=== PATIENT | female | born 1965 | race Caucasian/White ===

== ENCOUNTER 2019-11-08 10:52 | Outpatient (CLI) | payer OTHER, SELFPAY ==
--- NOTE | ~2019-11-08 | XR_ITS ---
XR hand RT min 3V, XR hand LT min 3V 11/08/2019 11:27 (accession [id number]), 11/08/2019 11:28 (accession [id number]) Indication: Osteoarthritis of the first carpometacarpal joint Procedure: 3 views of each hand Comparison: No prior studies for comparison. Findings: There is osteoarthritis of the first carpometacarpal and MCP joints. No acute fracture or t raumatic malalignment. Normal mineralization. No focal soft tissue abnormality. No radiopaque foreign bodies. There is mild degenerative change of the triscaphe joints. Impression: 1: Mild bilateral polyarticular osteoarthritis. Reviewed, dictated and finalized at location A. Impression: 1: Mild bilateral polyarticular osteoarthritis. Impression: 1: Mild bilateral polyarticular osteoarthritis.
== END 2019-11-08 10:53 | disposition home or self-care (01) ==
LOC: ANHIMG 10:59
PROVIDERS: PCP Nurse Practitioner Psychiatric/Mental Health; Visit Provider Surgery Plastic and Reconstructive Surgery
DX: M18.0 Bilateral primary osteoarthritis of first carpometacarpal joints (principal)
CPT/HCPCS: 73130

== ENCOUNTER 2025-02-04 09:31 | Emergency (ER) | payer OTHER, SELFPAY ==
--- NOTE | ~2025-02-04 | XR_ITS ---
EXAMINATION: XR chest 2V 02/04/2025 10:50 INDICATION: Shortness of breath PROCEDURE: 2 view chest COMPARISON: No prior studies for comparison. FINDINGS: The lungs are clear. The cardiomediastinal silhouette is within normal limits. There are no pleural effusions. There is no pneumothorax suspected. IMPRESSION: 1: NO ACUTE CARDIOPULMONARY DISEASE. Reviewed, dictated and finalized at location B.
[2025-02-04 09:48] VITALS: BP 159/82; PULSE 83; PULSE 86; RESP 13; RESP 14; TEMP 36.3; O2SAT 96; O2SAT 97
--- OUTSIDE RECORDS SUMMARY | 2025-02-04 09:51 | XMS_ITS | Encounter Summary ---
Author Organization [facility] Address [facility] access [facility] [place] [address] Care Team Providers Care Warehouse Clerk Name Role Phone Angela Olguin NP Primary Care Provider [phone] Gloria Castro CONFERENCE CONCIERGE- Primary Care Provider + Freddie Zepeda MD Primary Care Provider [phone] Encounter Details Date Type Department Care Team (Late st Contact Info) Description 05/18/2023 Majitek Message Enc [facility] Medical Group Family & Internal Medicine [facility] [address] [place] [address] [place] [address] [place] [address] Influenza A Social History Tobacco Use Types Packs/Day Years Used Date Smoking Tobacco: Former Cigarettes 0.3 5 0 10/15/1987 - 10/14/1992 Smokeless Tobacco: Never Comments:former smoker Alcohol Use Standard Drinks/Week Comments Not Currently 0 (1 standard drink = 0.6 oz pur e alcohol) AUDIT-C Answer Date Recorded Frequency of Alcohol Consumption Monthly or less 08/02/2018 Average Number of Drinks Not on file 019 Frequency of Binge Drinking Not on file 07/10 PHQ-2 Answer Date Recorded Patient Health Questionnaire-2 Score 0 12/01/2022 Education Answer Date Recorded What is the highest level of school you have completed or the highest degree you have received? High school graduate 08/02/2018 Comments No Sex and Gender Information Value Date Recorded Sex Assigned at Female 08/03/2018 9:44 AM ORDER TAKER Legal Sex Female 7:04 PM CDT Gender Identity Female 08/03/2018 9:44 AM ORDER TAKER Sexual Orientation Straight 08/02/2018 9: 02 AM ORDER TAKER 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 Plan of Treatment Upcoming Encounters Date Type Department Care Team (Late st Contact Info) Description 03/16/2025 11:20 AM CDT Office Visit [facility] Medical Group Family & Internal Medicine [facility] [address] [place] [address] [place] [address] [facility] [address] [place] [address] documented as of this encounter Visit Diagnoses Not on filedocumented in this encounter Additional Health Concerns Infection Onset Date Last Indicated Resolved Time Influenza - Seasonal 05/16/2023 05/16/2023 023 12:32 AM ORDER TAKER Assessment Noted Time PHQ-9 Depression Total Score: 3 12/02/19 23 3:04 PM CDT documented as of this encounter Care Teams Warehouse Clerk Relationship Specialty Start Date End Date Angela Olguin ADDICTION TREATMENT COUNSELOR [address] [facility] Suite [facility] [place] [address] PCP - General Nurse Practitioner Family 04/23/2309/07 Gloria Castro, CONFERENCE CONCIERGE- [address] [facility], [address] [place] [address] PCP - General Nurse Practitioner Family 09/30/2401/06 [place] [address] [facility] [employer] [address] [place] [address] PCP - General INTERNAL MEDICINE 01/17/25 documented as of this encounter
--- OUTSIDE RECORDS SUMMARY | 2025-02-04 09:51 | XMS_ITS | Encounter Summary ---
Author Organization [facility] Address [address] [place] [address] Care Team Providers Care Rn Float Name Role Phone Es Lazcano COLOR MIXER Primary Care Provider Unav ailable Vidhya Baptiste [facility] Primary Care Provider + Angela Olguin COLOR MIXER Primary Care Provider [phone] Gloria Castro [facility] Primary Care Provider + Freddie Zepeda MD Primary Care Provider [phone] Encounter Details Date Type Department Care Team (Late st Contact Info) Description 04/07/2019 Fly Fishing Hunter Message Enc [facility] Family & Internal Medicine [facility] [address] [place] [address] Es Lazcano NP RE: Question Social History Tobacco Use Types Packs/Day Years Used Date Smoking Tobacco: Former Cigarettes Q uit: 1993 Smokeless Tobacco: Never Alcohol Use Standard Drinks/Week Comments Yes 0 (1 standard drink = 0.6 oz pur e alcohol) AUDIT-C Answer Date Recorded Frequency of Alcohol Consumption Monthly or less 08/02/2018 Average Number of Drinks Not on file 019 Frequency of Binge Drinking Not on file 07/10 Education Answer Date Recorded What is the highest level of school you have completed or the highest degree you have received? High school graduate 08/02/2018 Comments Unknown Sex and Gender Information Value Date Recorded Sex Assigned at Female 08/03/2018 9:44 AM DIRECTOR ALUMNI RELATIONS Legal Sex Female 7:04 PM CDT Gender Identity Female 08/03/2018 9:44 AM DIRECTOR ALUMNI RELATIONS Sexual Orientation Straight 08/02/2018 9: 02 AM DIRECTOR ALUMNI RELATIONS 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 Plan of Treatment Upcoming Encounters Date Type Department Care Team (Late st Contact Info) Description 03/16/2025 11:20 AM CDT Office Visit [facility] Family & Internal Medicine [facility] [address] [place] [address] [place] [address] [facility] [address] [place] [address] documented as of this encounter Visit Diagnoses Not on filedocumented in this encounter Additional Health Concerns Infection Onset Date Last Indicated Resolved Time COVID-19 Rule Out 09/11/2020 09/11/2020 09/11/2020 10:00 AM DIRECTOR ALUMNI RELATIONS COVID-19 Rule Out 05/16/2023 05/16/2023 05/16/2023 10:09 AM DIRECTOR ALUMNI RELATIONS Influenza - Seasonal 05/16/2023 05/16/2023 023 12:32 AM DIRECTOR ALUMNI RELATIONS documented as of this encounter Care Teams Rn Float Relationship Specialty Start Date End Date Es Lazcano NP PCP - General NURSE PRACTITIONER 08/02/18 07/25/21 Vidhya Baptiste, [facility]- PCP - General Nurse Practitioner Family 07/26/21 [place] [address] [facility] [address] [facility] [place] [address] PCP - General Nurse Practitioner Family 04/23/23 310/31 Gloria Castro, STORM SASH MAKER- [address] [facility] [address] [place] [address] PCP - General Nurse Practitioner Family 09/30/2401/06 [place] [address] [address] [place] [address] PCP - General INTERNAL MEDICINE 01/17/25 documented as of this encounter
--- OUTSIDE RECORDS SUMMARY | 2025-02-04 09:51 | XMS_ITS | Encounter Summary ---
Author Organization [facility] Address [facility] [place] [address] Care Team Providers Care Electronic Device Repairer Name Role Phone Vidhya Baptiste [facility] Primary Care Provider + Angela Olguin NP Primary Care Provider [phone] Gloria Castro [facility] Primary Care Provider + Freddie Zepeda MD Primary Care Provider [phone] Encounter Details Date Type Department Care Team (Late st Contact Info) Description 10/03/2021 MyCCampus Directt Message Enc [facility] Medical Group Family & Internal Medicine [facility] [address] [place] [address] Vidhya Baptiste [facility] [address] [place] [id number] [place] paper work Social History Tobacco Use Types Packs/Day Years Used Date Smoking Tobacco: Former Cigarettes 0.3 3 1 990 - 1992 Smokeless Tobacco: Never Comments:former smoker Alcohol Use Standard Drinks/Week Comments Yes 0 (1 standard drink = 0.6 oz pur e alcohol) AUDIT-C Answer Date Recorded Frequency of Alcohol Consumption Monthly or less 08/02/2018 Average Number of Drinks Not on file 019 Frequency of Binge Drinking Not on file 07/10 PHQ-2 Answer Date Recorded PHQ-2 Score - If the patient scores above 3, please move on to questions 3-9 2 07/30/2021 Education Answer Date Recorded What is the highest level of school you have completed or the highest degree you have received? High school graduate 08/02/2018 Comments No Sex and Gender Information Value Date Recorded Sex Assigned at Female 08/03/2018 9:44 AM AIRBORNE SENSOR SPECIALIST Legal Sex Female 7:04 PM CDT Gender Identity Female 08/03/2018 9:44 AM AIRBORNE SENSOR SPECIALIST Sexual Orientation Straight 08/02/2018 9: 02 AM AIRBORNE SENSOR SPECIALIST 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 Unable to assess 09/30/2021 11:44 AM CDT documented as of this encounter Plan of Treatment Upcoming Encounters Date Type Department Care Team (Late st Contact Info) Description 03/16/2025 11:20 AM CDT Office Visit [facility] Medical Group Family & Internal Medicine [address] [address] [place] [address] [place] [address] documented as of this encounter Visit Diagnoses Not on filedocumented in this encounter Additional Health Concerns Infection Onset Date Last Indicated Resolved Time COVID-19 Rule Out 05/16/2023 05/16/2023 05/16/2023 10:09 AM AIRBORNE SENSOR SPECIALIST Influenza - Seasonal 05/16/2023 05/16/2023 023 12:32 AM AIRBORNE SENSOR SPECIALIST Assessment Noted Time PHQ-9 Depression Total Score: 9 07/30/19 22 12:32 PM AIRBORNE SENSOR SPECIALIST documented as of this encounter Care Teams Electronic Device Repairer Relationship Specialty Start Date End Date Vidhya Baptiste FNP-BC PCP - General Nurse Practitioner Family 07/26/21 [place] [address] [facility] [address] [place] [address] PCP - General Nurse Practitioner Family 04/23/2309/07 Gloria Castro, [facility] [address] [address], [address] [place] [address] PCP - General Nurse Practitioner Family 09/30/2401/06 [place] [address] [address] [place] [address] PCP - General INTERNAL MEDICINE 01/17/25 documented as of this encounter
--- OUTSIDE RECORDS SUMMARY | 2025-02-04 09:51 | XMS_ITS | Encounter Summary ---
Author Organization [facility] Address [facility] [place] [address] Care Team Providers Care Private Sector Executive Name Role Phone Vidhya Baptiste [facility] Primary Care Provider + Angela Olguin NP Primary Care Provider [phone] Gloria Castro [facility] Primary Care Provider + Freddie Zepeda MD Primary Care Provider [phone] Encounter Details Date Type Department Care Team (Late st Contact Info) Description 09/29/2021 MyCRealtime Gamest Message Enc [facility] Medical Group Family & Internal Medicine [facility] [address] [place] [address] Vidhya Baptiste [facility] [address] [place] [phone] My appointment Social History Tobacco Use Types Packs/Day Years Used Date Smoking Tobacco: Former Cigarettes 0.3 3 1 990 - 1993 Smokeless Tobacco: Never Comments:former smoker Alcohol Use [...] Sex Assigned at Female 08/03/2018 9:44 AM TOE POUNDER Legal Sex Female 7:04 PM CDT Gender Identity Female 08/03/2018 9:44 AM TOE POUNDER Sexual Orientation Straight 08/02/2018 9: 02 AM TOE POUNDER 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 Unable to assess 09/30/2021 11:44 AM CDT documented as of this encounter Progress Notes * Opal Richardson RN - 09/30/2021 8:50 AM CDT Spoke with patient, VV is scheduled. * TRE Head - 09/30/2021 8:38 AM CDT VV please documented in this encounter Plan of Treatment Upcoming Encounters Date Type Department Care Team (Late st Contact Info) Description 03/16/2025 11:20 AM CDT Office Visit [facility] Medical Group Family & Internal Medicine - [place] [address] [place] [address] [place]eda [place] [id number] [place] [address] [place] [address] documented as of this encounter Visit Diagnoses Not on filedocumented in this encounter Additional Health Concerns Infection Onset Date Last Indicated Resolved Time COVID-19 Rule Out 05/16/2023 05/16/2023 05/16/2023 10:09 AM TOE POUNDER Influenza - Seasonal 05/16/2023 05/16/2023 023 12:32 AM TOE POUNDER Assessment Noted Time PHQ-9 Depression Total Score: 9 07/30/19 22 12:32 PM TOE POUNDER documented as of this encounter Care Teams Private Sector Executive Relationship Specialty Start Date End Date Vidhya Baptiste, [facility] PCP - General Nurse Practitioner Family 07/26/21 Angela Olguin, CARGO SERVICE SUPERVISOR [address] [place] [address] PCP - General Nurse Practitioner Family 04/23/2309/07 Gloria Castro, [facility] [address] [address], [address] [place] [address] PCP - General Nurse Practitioner Family 09/30/2401/06 [place] [address] [email or web address] [address] [place] [address] PCP - General INTERNAL MEDICINE 01/17/25 documented as of this encounter
--- OUTSIDE RECORDS SUMMARY | 2025-02-04 09:51 | XMS_ITS | Encounter Summary ---
Author Organization [facility] Address [address] [place] [address] Care Team Providers Care Nnp Name Role Phone Vidhya Baptiste [facility] Primary Care Provider + Angela Olguin BLOCKER METAL BASE Primary Care Provider Gloria Castro [facility] Primary Care Provider + Freddie Zepeda MD Primary Care Provider [phone] Encounter Details Date Type Department Care Team (Late st Contact Info) Description 06/19/2022 Better Placet Message Enc [facility] Medical Group Family & Internal Medicine [facility] [address] [place] [address] Leanne Calvillo, ISABELLA [address] [address] [place] Social History Tobacco Use Types Packs/Day Years [...] Sex Assigned at Female 08/03/2018 9:44 AM MACHINE STUFFER AUTOMATIC Legal Sex Female 7:04 PM CDT Gender Identity Female 08/03/2018 9:44 AM MACHINE STUFFER AUTOMATIC Sexual Orientation Straight 08/02/2018 9: 02 AM MACHINE STUFFER AUTOMATIC 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 No / Unsure 06/14/2022 1:50 PM MACHINE STUFFER AUTOMATIC documented as of this encounter Plan of Treatment Upcoming Encounters Date Type Department Care Team (Late st Contact Info) Description 03/16/2025 11:20 AM CDT Office Visit [facility] Medical Group Family & Internal Medicine [facility] [address] [place], [place] [address] [place] [address] [place] [address] documented as of this encounter Visit Diagnoses Not on filedocumented in this encounter Additional Health Concerns Infection Onset Date Last Indicated Resolved Time COVID-19 Rule Out 05/16/2023 05/16/2023 05/16/2023 10:09 AM MACHINE STUFFER AUTOMATIC Influenza - Seasonal 05/16/2023 05/16/2023 023 12:32 AM MACHINE STUFFER AUTOMATIC Assessment Noted Time PHQ-9 Depression Total Score: 9 07/30/19 22 12:32 PM MACHINE STUFFER AUTOMATIC documented as of this encounter Care Teams Nnp Relationship Specialty Start Date End Date Vidhya Baptiste FNP-BC PCP - General Nurse Practitioner Family 07/26/21 Angela Olguin, BLOCKER METAL BASE [address] [place] [address] [address] [place] [address] PCP - General Nurse Practitioner Family 04/23/2309/07 Gloria Castro, [facility]- [address] [address], [address] [place] [address] PCP - General Nurse Practitioner Family 09/30/2401/06 [place] [address] [address] [place] [address] PCP - General INTERNAL MEDICINE 01/17/25 documented as of this encounter
--- OUTSIDE RECORDS SUMMARY | 2025-02-04 09:51 | XMS_ITS | Encounter Summary ---
Author Organization [facility] Address [facility] [place] [address] Care Team Providers Care [place] Nurse Name Role Phone Freddie Zepeda MD Primary Care Provider [phone] Reason for Referral * Imaging (Emergency) - New Request Specialty Diagnoses / Procedures Referred By Toni lee Referred To Contact RADIOLOGY Procedures CTA CHEST PE PROTOCOL Clarisa Lang MD [address] [place] [address] Phone: tel: fax: Referral ID Status Reason Start Date Expiration Date V isits Requested Visits Authorized [id number] New Request 02/03/2025 02/03/2026 1 1 Reason for Visit * Reason Comments Shortness Of Breath Chest Pain Edema Encounter Details Date Type Department Care Team (Late st Contact Info) Description 02/03/2025 10:25 AM CDT - 02/03/2025 1:10 PM CDT Emergency [facility] Emergency Room [address] [place] [address] Clarisa Lang MD [address] [place] [address] Shortness Of Breath ; Chest Pain; Edema Discharge Disposition: Home or Self Care (Routine Discharge) Social History Tobacco Use Types Packs/Day Years [...] Answer Date Recorded Patient Health Questionnaire-2 Score 1 12/04/2024 Education Answer Date Recorded What is the highest level of school you have completed or the highest degree you have received? High school graduate 08/02/2018 Comments No Sex and Gender Information Value Date Recorded Sex Assigned at Female 08/03/2018 9:44 AM RN CLINICAL QUALITY Legal Sex Female 7:04 PM CDT Gender Identity Female 08/03/2018 9:44 AM RN CLINICAL QUALITY Sexual Orientation Straight 08/02/2018 9: 02 AM RN CLINICAL QUALITY 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 Last Filed Vital Signs Vital Sign Reading Time Taken Comments Blood Pressure 158/87 02/03/2025 12:30 PM CDT Pulse 75 02/03/2025 12:37 PM CDT Temperature 36.1 C (96.9 F) 02/03/2025 1:01 PM CDT Respiratory Rate 13 02/03/2025 12:37 PM CDT Oxygen Saturation 97% 02/03/2025 12:37 PM CDT Inhaled Oxygen Concentration - - Weight 132.9 kg (293 lb) 02/03/2025 10:30 AM CDT Height 167.6 cm (5' 6) 02/03/2025 10:30 AM CDT Body Mass Index 47.29 02/03/2025 10:30 AM CDT documented in this encounter Functional Status * Calculated C-SSRS Risk Score (Lifetime/Recent) Answer Date of Assessment Author Status No Risk Indicated 02/03/2025 10:38 AM CDT Deonna Oliveros RN Active * [place] Suicide Severity Rating Scale (Screener/Recent Self-Report) Question Answer Date of Assessment Author Status 1. Wish to be (Past 1 Month) No 02/03/2025 10:38 AM CDT Jose Juan Oliveros RN A ctive 2. Non-Specific Active Suicidal Thoughts (Past 1 Month) No 02/03/2025 10:38 AM CDT Jose Juan Oliveros RN A ctive 6. Suicidal Behavior (Lifetime) No 02/03/2025 10:38 AM CDT Jose Juan Oliveros RN A ctive documented as of this encounter Discharge Instructions * Discharge Instructions* Clarisa Lang MD - 02/03/2025 12:40 PM CDT Follow up with your PCP. Avoid sodas or processed foods for the next several weeks. Avoid Zyprexa. Return if worsening of your symptoms * Attachments The following attachments cannot be sent through Care Everywhere. * Obesity Discharge Instructions, Adult ([place] Citizen) * Shortness of Breath (Dyspnea) Discharge Instructions ([place] Citizen) documented in this encounter Medications at Time of Discharge albuterol sulfate HFA 108 (90 Base) MCG/ACT inhalerIndications:M ild intermittent asthma without complication (HHS/HCC) INHALE 2 PUFFS BY MOUTH EVERY 6 HOURS NEEDED FOR WHEEZING FOR SHORTNESS OF BREATH 18 g 01/05/2025 ALPRAZolam (XANAX) 0.25 MG tablet Take 1 tablet (0.25 mg total) by mouth 2 (two) times daily. 09/29/2024 ARIPiprazole (ABILIFY) 5 MG tablet Take 1 tablet (5 mg total) by mouth 2 (two) times a day. 05/16/2022 atenolol (TENORMIN) 50 MG tabletIndications:Pr imary hypertension Take 2 tablets by mouth once daily 180 tablet 02/02/2025 buPROPion SR (WELLBUTRIN SR) 100 MG 12 hr tablet Take 1 tablet (100 mg total) by mouth 2 (two) times daily. 09/17/2024 busPIRone (BUSPAR) 30 MG tabletIndications:GA D (generalized anxiety disorder),Moderate episode of recurrent major depressive disorder (CMS/HCC) Take 1 tablet (30 mg total) by mouth 2 (two) times a day. 180 tablet 02/09/2022 cyclobenzaprine (FLEXERIL) 5 MG tablet Take 1 tablet (5 mg total) by mouth 3 (three) times daily as needed for Muscle Spasms. diclofenac EC (VOLTAREN) 75 MG tabletIndications:Ac shantelle bilateral low back pain with bilateral sciatica Take 1 tablet by mouth twice daily 60 tablet 01/05/2025 empagliflozin (JARDIANCE) 25 MG tabletIndications:Ty pe 2 diabetes mellitus with hyperglycemia, without long-term current use of insulin (CMS/HCC HHS/HCC) Take 1 tablet (25 mg total) by mouth daily. 30 tablet 2 12/04/2024 Fenofibrate 134 MG CapIndications:Mixed hyperlipidemia Take 1 capsule by mouth daily. 90 capsule 3 01/14/2024 fish oil (OMEGA-3 FATTY ACID) 1000 MG Cap capsuleIndications:M ixed hyperlipidemia Take 1 capsule (1,000 mg total) by mouth daily. 60 capsule 2 07/05/2022 gabapentin (NEURONTIN) 100 MG capsuleIndications:C hronic bilateral low back pain with bilateral sciatica Take 1 capsule (100 mg total) by mouth 3 (three) times daily. 90 capsule 2 12/04/2024 hydroCHLOROthiazide (HYDRODIURIL) 25 MG tabletIndications:Es sential hypertension Take 1 tablet (25 mg total) by mouth daily. 90 tablet 3 01/14/2024 mirtazapine (REMERON) 30 MG tablet Take 1 tablet (30 mg total) by mouth nightly at bedtime. 09/19/2024 montelukast (SINGULAIR) 10 MG tabletIndications:Mi ld intermittent asthma without complication (HHS/HCC) Take 1 tablet (10 mg total) by mouth nightly at bedtime. at bedtime 90 tablet 3 01/14/2024 nystatin (MYCOSTATIN) powderIndications:Ca ndidal intertrigo Apply topically 3 (three) times daily. 60 g 3 12/12/2024 OLANZapine (ZYPREXA) 5 MG tablet Take 1 tablet (5 mg total) by mouth nightly at bedtime. 12/25/2024 rosuvastatin (CRESTOR) 10 MG tabletIndications:Mi xed hyperlipidemia Take 1 tablet (10 mg total) by mouth nightly at bedtime. 30 tablet 10/28/2024 triamcinolone (KENALOG) 0.1 % creamIndications:Pso riasis Apply topically 2 (two) times daily. 80 g 1 10/24/2024 valACYclovir (VALTREX) 500 MG tabletIndications:He rpes simplex Take 1 tablet (500 mg total) by mouth daily. 90 tablet 3 01/14/2024 venlafaxine XR (EFFEXOR-XR) 150 MG 24 hr capsule Take 1 capsule (150 mg total) by mouth daily. 06/17/2024 vitamin D3 10 mcg tabletIndications:Mi xed hyperlipidemia Take 1 tablet (10 mcg total) by mouth daily. May take 400-800 u daily 10/28/2024 documented as of this encounter ED Notes * Jose Juan Oliveros RN - 02/03/2025 10:36 AM CDT Patient ambulatory to ER from the walk in clinic for overall body aches and swelling and SOB. The swelling she noticed a month ago after trialing olanzipine, she has since stopped taking it but the last couple of days she states the SOB and generalized pain has been much worse. Patient states the only significant PMH is HTN. * Clarisa Lang MD - 02/03/2025 10:25 AM CDT Chief Complaint Chief Complaint Patient presents with Shortness Of Breath Chest Pain Edema History of Present Illness 59-year-old female who presents for shortness of breath. Past medical history is HTN, asthma, HLD, DMT2, anxiety and depression presents due to chest tightness and pressure, shortness of breath and edema for the last several weeks. Patient states that she was placed on olanzapine for her anxiety and then stopped it several weeks after she began getting swelling on her lower extremities. Has not taking it for several weeks but continues to have lower extremity swelling, now complains of chest tightness and shortness of breath at rest. She states that the chest tightness is not a pain, it substernal and nonradiating. States that she is supposed be taking atenolol and hydrochlorothiazide but has not been taking the hydrochlorothiazide however she denies any history of heart failure, no history of DVTs. States that her legs are swollen but not painful. Patient does have a history of pickingat her legs and does have multiple scars and says that they occasionally get infected but denies any areas of pain at this time. She denies any fevers, has a mild cough that is intermittent but denies any sick contacts. She states she does have a history of asthma but has not done inhalers, states that she does not tolerate the nebulizers well. Medical History ALLERGIES: Review of patient's allergies indicates: Allergen Reactions Albuterol Nausea Only Albuterol in nebulizer causes nausea, albuterol in inhaler ok Ciprofloxacin Hives Cleocin [Clindamycin Hcl] Hives Ipratropium Nausea Only Keflex [Cephalexin] Hives Penicillins Hives MEDICATIONS: Prior to Admission medications Medication Sig Start Date End Date Taking? Authorizing Provider albuterol sulfate HFA 108 (90 Base) MCG/ACT inhaler INHALE 2 PUFFS BY MOUTH EVERY 6 HOURS NEEDEDFOR WHEEZING FOR SHORTNESS OF BREATH 01/05/25 TOÑO Jo ALPRAZolam (XANAX) 0.25 MG tablet Take 1 tablet (0.25 mg total) by mouth 2 (two) times daily. 09/29/24 Default History Genericprovider ARIPiprazole (ABILIFY) 5 MG tablet Take 1 tablet (5 mg total) by mouth 2 (two) times a day. 05/16/22Default History Genericprovider atenolol (TENORMIN) 50 MG tablet Take 2 tablets by mouth once daily 02/02/25 Angela Olguin, DON buPROPion SR (WELLBUTRIN SR) 100 MG 12 hr tablet Take 1 tablet (100 mg total) by mouth 2 (two) times daily. 09/17/24 Default History Genericprovider busPIRone (BUSPAR) 30 MG tablet Take 1 tablet (30 mg total) by mouth 2 (two) times a day. 02/09/22 TRE Head cyclobenzaprine (FLEXERIL) 5 MG tablet Take 1 tablet (5 mg total) by mouth 3 (three) times daily asneeded for Muscle Spasms. Default History Genericprovider diclofenac EC (VOLTAREN) 75 MG tablet Take 1 tablet by mouth twice daily 01/05/25 TOÑO Jo empagliflozin (JARDIANCE) 25 MG tablet Take 1 tablet (25 mg total) by mouth daily. 12/04/24 TRE Xavier Fenofibrate 134 MG Cap Take 1 capsule by mouth daily. 01/14/24 Angela Olguin NP fish oil (OMEGA-3 FATTY ACID) 1000 MG Cap capsule Take 1 capsule (1,000 mg total) by mouth daily. 07/05/22 Emmy Price MD gabapentin (NEURONTIN) 100 MG capsule Take 1 capsule (100 mg total) by mouth 3 (three) times daily.12/04/24 TRE Xavier hydroCHLOROthiazide (HYDRODIURIL) 25 MG tablet Take 1 tablet (25 mg total) by mouth daily. 01/14/24 Angela Olguin NP mirtazapine (REMERON) 30 MG tablet Take 1 tablet (30 mg total) by mouth nightly at bedtime. 09/19/24Default History Genericprovider montelukast (SINGULAIR) 10 MG tablet Take 1 tablet (10 mg total) by mouth nightly at bedtime. at bedtime 01/14/24 Angela Olguin NP nystatin (MYCOSTATIN) powder Apply topically 3 (three) times daily. 12/12/24 TRE Xavier OLANZapine (ZYPREXA) 5 MG tablet Take 1 tablet (5 mg total) by mouth nightly at bedtime. Patient not taking: Reported on 02/03/2025 12/25/24 Default History Genericprovider rosuvastatin (CRESTOR) 10 MG tablet Take 1 tablet (10 mg total) by mouth nightly at bedtime. 10/28/24 TRE Xavier triamcinolone (KENALOG) 0.1 % cream Apply topically 2 (two) times daily. 10/24/24 TRE Xavier valACYclovir (VALTREX) 500 MG tablet Take 1 tablet (500 mg total) by mouth daily. 01/14/24 Angela Olguin NP venlafaxine XR (EFFEXOR-XR) 150 MG 24 hr capsule Take 1 capsule (150 mg total) by mouth daily. 06/17/24 Default History Genericprovider vitamin D3 10 mcg tablet Take 1 tablet (10 mcg total) by mouth daily. May take 400-800 u daily 10/28/24 Gloria Castro, [facility] PAST MEDICAL HISTORY: Past Medical History[1] PAST SURGICAL HISTORY: Past Surgical History[2] FAMILY HISTORY: Family History[3] SOCIAL HISTORY: Social History[4] Review of Systems Review of Systems Physical Exam Filed Vitals: 02/03/25 1130 02/03/25 1230 02/03/25 1237 02/03/25 1301 BP: (!) 142/89 (!) 158/87 Pulse: 77 76 75 Resp: 27 13 13 Temp: 96.9 ??F (36.1 ??C) TempSrc: Temporal SpO2: 95% 97% 97% Weight: Height: Physical Exam Diagnostic Studies / Procedures ELECTROCARDIOGRAMS: Results for orders placed or performed during the hospital encounter of 02/03/25 ECG 12 lead Narrative [facility] Test Date: 2025-02-03 Pat Name: LUTHER COATES Department: 85 Room: EXAM 101 Gender: Female 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: : 1965 Requested By: CLARISA LANG Order Number: [id number] Reading MD: Measurements Intervals [place] Rate: 75 P: -11 MI: 160 QRS: -10 QRSD: 86 T: 40 QT: 379 QTc: 426 Interpretive Statements SINUS RHYTHM Compared to ECG 09/11/2020 09:30:01 No significant changes LABORATORY STUDIES: Results for orders placed or performed during the hospital encounter of 02/03/25 CBC W/DIFF AUTOMATED Result Value Ref Range WBC 7.65 4.4 - 11.0 x10'3/uL RBC 5.01 4.50 - 5.10 x10'6/uL HGB 13.7 12.3 - 15.3 G/DL HCT 43.2 35.9 - 44.6 % MCV 86.2 80.0 - 96.0 FL MCH 27.3 25.3 - 30.9 PG MCHC 31.7 31.0 - 34.1 G/DL RDW 13.9 12.4 - 15.1 % PLT 258 151 - 353 x10'3/uL MPV 9.3 (L) 9.6 - 12.0 FL RBC MORPHOLOGY NORMAL PLT MORPH. NORMAL WBC MORPHOLOGY NORMAL LYMPHOCYTES % 25.6 15.8 - 45.0 % NEUTROPHILS % 61.1 42.1 - 71.9 % MONOCYTES % 7.8 5.7 - 12.5 % EOSINOPHILS 3.7 0.0 - 5.6 % BASOPHILS 0.9 0.0 - 1.3 % ABS. NEUTROPHILS 4.67 1.40 - 6.00 x10'3/uL IMMATURE GRANS % 0.9 (H) 0.0 - 0.5 % ABS. LYMPHOCYTES 1.96 0.80 - 4.70 x10'3/uL COMPREHENSIVE METABOLIC PANEL Result Value Ref Range GLUCOSE 144 (H) 70 - 99 MG/DL BUN 14 7 - 18 MG/DL CREATININE S/P/B 0.61 0.55 - 1.02 MG/DL SODIUM S/P/B 139 136 - 145 MMOL/L POTASSIUM S/P/B 4.3 3.5 - 5.1 MMOL/L CHLORIDE S/P/B 103 100 - 108 MMOL/L CO2 31.1 21 - 32 MMOL/L CALCIUM S/P/B 8.6 8.5 - 10.1 MG/DL BILIRUBIN TOTAL S/P/B 0.2 0.2 - 1.2 MG/DL TOTAL PROTEIN S/P/B 7.3 6.4 - 8.2 G/DL ALBUMIN S/P/B 3.4 3.4 - 5.0 G/DL AST 37 15 - 37 U/L ALT 40 14 - 55 U/L ALKALINE PHOSPHATASE S/P/B 163 (H) 50 - 136 U/L ANION GAP 4.9 (L) 5 - 15 MMOL/L BUN CREATININE RATIO 23.0 6 - 26 A/G RATIO 0.9 (L) 1.0 - 2.0 RATIO GFR ESTIMATE >90 >90 ML/MIN/1.73 M2 PROTIME/INR, VENOUS Result Value Ref Range PROTIME 11.4 9.1 - 12.4 SEC INR 1.0 LIPASE Result Value Ref Range LIPASE 17 16 - 77 UNITS/L TROPONIN, QUANT Result Value Ref Range TROPONIN I HIGH SENSITIVITY 5 0 - 50 ng/L MAGNESIUM Result Value Ref Range MAGNESIUM 2.0 1.8 - 2.4 MG/DL PRO-BRAIN NATRIURETIC PEPTIDE Result Value Ref Range PRO-B TYPE NATRIURETIC PEPTIDE 34 <125 PG/ML D-DIMER, QUANTITATIVE Result Value Ref Range D-DIMER 627 (H) 0 - 500 ng[FEU]/mL IMAGING STUDIES CTA CHEST PE PROTOCOL Final Result by User, [id number] (02/03 1226) [facility] [address] [place] [address] PROCEDURE: CTA CHEST PE PROTOCOL. HISTORY: Evaluate for pulmonary embolism. Shortness of breath. Chest pain. Elevated d-dimer. TECHNIQUE: Contrast enhanced helical CT pulmonary angiography was then performed. Routine transaxial and post-processed (sagittal and coronal MPR) reformations of the acquired data sets were obtained (Isovue-370, 80 mL). Standard 3-D (MIP) reformations of the acquired data sets were also obtained. A dose lowering technique was used for this procedure, which may include, but is not limited to, dose reduction technique, automated exposure control, the use of iterative reconstruction, and ALARA (As Low As Reasonably Achievable) / Image Gently techniques. COMPARISON: AP chest radiograph, 02/03/2025. PULMONARY CTA FINDINGS: This is a diagnostic quality helical CT pulmonary angiogram. There is no acute pulmonary embolism to the first subsegmental pulmonary artery level. OTHER FINDINGS: Support Devices: None. Heart/Pericardium/Great Vessels: Cardiac size is normal. Enlarged. Artery atherosclerosis cannot be accurately evaluated on this contrast-enhanced exam. There is no pericardial effusion. There is mild thoracic aortic and branch vessel atherosclerosis, portions calcific. The main pulmonary artery is normal in diameter. The mid ascending thoracic aorta measures up to 3.6 cm. Pleural Spaces: The pleural spaces are clear. Mediastinum/Julieta: There is no mediastinal or hilar lymph node enlargement. Neck Base/Chest Wall/Diaphragm/Upper Abdomen: There is no supraclavicular or axillary lymph node enlargement. Hepatomegaly with diffuse hepatic steatosis. Status post cholecystectomy. The visualized structures within the upper abdomen are otherwise within normal limits. Limited imaging through the upper abdomen is within normal limits. Multilevel degenerative change is present in the spine. Lungs/Central Airways: The trachea and central airways are clear normal in caliber. There is bilateral dependent atelectasis. No focal consolidation. No suspicious pulmonary nodules are identified. IMPRESSION: 1. There is no acute pulmonary embolism to the first subsegmental pulmonary artery level. 2. No acute abnormality is seen within the chest. 3. Hepatomegaly with diffuse hepatic steatosis. 4. Status post cholecystectomy. Ordered By: CLARISA LANG Interpreted By: Rose Marie Buenrostro MD, 02/03/2025 12:15 PM XR CHEST PORTABLE Final Result by User, [id number] (02/03 1109) [facility] [address] [place] [address] Examination: Chest Radiograph, 1 view Exam Date/Time: 02/03/2025 10:47 AM Reason For Exam: CP, SOB Comparison: 09/11/2020 Technique: Single AP view of the chest. Findings: Heart size is normal. Pulmonary vasculature is within normal limits. There is no large pleural effusion or pneumothorax. No focal infiltrate or consolidative change. Gaseous distention possibly of the stomach is suspected. This is incompletely visualized. ======== IMPRESSION: ======== 1. No acute cardiopulmonary abnormalities. 2. Gaseous distention of stomach partially visualized. Correlate clinically. Ordered By: CLARISA LANG Interpreted By: Dante Muhammad MD, 02/03/2025 11:04 AM ED Course / Medical Decision Making Medical Decision Making Amount and/or Complexity of Data Reviewed Labs: ordered. Radiology: ordered. ECG/medicine tests: ordered. This is a 59-year-old female with PMH as above presents secondary to shortness of breath. Associated with rapid weight gain for the past several weeks approximately 30 pounds after starting olanzapine. Olanzapine has been held this was started for anxiety. She had normal vital signs, satting 97% onroom air, she had no wheezing on exam, albuterol without any improvement. Her dimer was slightly elevated CTA was ordered which was unremarkable. Her cardiac markers were unremarkable. She did not appear to have pitting edema. Question whether or not this is hypoventilation syndrome secondary to weight gain. I advised patient to watch for food control and hopefully her weight should decrease now t hat she is no longer taking the olanzapine. To follow-up with her PCP but at this time no emergent cause was found causing shortness of breath and she has stable vital signs. EKG shows NSR at 75 bpm, normal axis, no signs of acute ischemia as interpreted by myself. Clinical Impression Shortness of breath (Primary) Medication side effect, initial encounter Rapid weight gain Disposition: Discharge [1] Past Medical History: Diagnosis Date Anemia Anxiety Arthritis Asthma (HHS/HCC) Depression Diabetes mellitus (CMS/HCC HHS/HCC) GERD (gastroesophageal reflux disease) Hypertension Tendinitis, de Quervain's 03/12/2018 [2] Past Surgical History: Procedure Laterality Date APPENDECTOMY APPENDECTOMY 1989 BREAST REDUCTION BILATERAL BREAST SURGERY 1993 SECTION CHOLECYSTECTOMY COLONOSCOPY N/A 06/20/2019 COLONOSCOPY WITH POLYPECTOMY performed by Amanuel Gonzales MD at [facility] OR EYE SURGERY two surgeries LASIK Bilateral 2000 [3] Family History Problem Relation Name Age of Onset Hypertension Mother Marilynn Emphysema Mother Marilynn Heart Mother Marilynn Heart Disease Mother Marilynn Miscarriages / Stillbirths Mother Marilynn Asthma Mother Marilynn Emphysema Father Vision loss Paternal Grandmother Ana Asthma Daughter Mehreen [4] Social History Tobacco Use Smoking status: Former Current packs/day: 0.00 Average packs/day: 0.3 packs/day for 5.0 years (1.3 ttl pk-yrs) Types: Cigarettes Start date: 10/15/1987 Quit date: 10/14/1992 Years since quittin.3 Smokeless tobacco: Never Tobacco comments: former smoker Vaping Use Vaping status: Never Used Substance Use Topics Alcohol use: Not Currently Drug use: No Clarisa Lang MD 02/04/25 0729 documented in this encounter Plan of Treatment Upcoming Encounters Date Type Department Care Team (Late st Contact Info) Description 03/16/2025 11:20 AM CDT Office Visit [facility] [address] [address] Freddie Zepeda MD [address] [place] [id number] Pending Results Name Type Priority Associated Diagnoses Date /Time ECG 12 lead EKG-NonRad Routine 02/03/2025 10 :35 AM CDT documented as of this encounter Procedures Procedure Name Priority Date/Time Associated Diagnosis Comments CTA CHEST PE PROTOCOL STAT 02/03/2025 12:03 PM CDT XR CHEST PORTABLE STAT 02/03/2025 11:02 AM CDT ECG 12-LEAD Routine 02/03/2025 10:35 AM CDT Procedure Note - 02/03/2025 10:35 AM CDTThis note is in progress. 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: : 1965 Requested By: CLARISA LANG Order Number: [id number] Reading MD: Measurements Intervals [place] Rate: 75 P: -11 MI: 160 QRS: -10 QRSD: 86 T: 40 QT: 379 QTc: 426 Interpretive Statements SINUS RHYTHM Compared to ECG 09/11/2020 09:30:01 No significant changes PRO-BRAIN NATRIURETIC PEPTIDE STAT 02/03/2025 10:35 AM CDT PROTHROMBIN TIME, VENOUS STAT 02/03/2025 10:35 AM CDT COMPREHENSIVE METABOLIC PANEL STAT 02/03/2025 10:35 AM CDT D-DIMER, QUANTITATIVE STAT 02/03/2025 10:35 AM CDT CBC W/DIFF AUTOMATED STAT 02/03/2025 10:35 AM CDT TROPONIN, QUANT STAT 02/03/2025 10:35 AM CDT MAGNESIUM STAT 02/03/2025 10:35 AM CDT LIPASE STAT 02/03/2025 10:35 AM CDT documented in this encounter Results * CTA CHEST PE PROTOCOL (02/03/2025 12:03 PM CDT) Anatomical Region Laterality Modality Chest Computed Tomogra phy 02/03/2025 12:1 5 PM CDT Impressions 02/03/2025 12:23 PM CDT IMPRESSION: 1. There is no acute pulmonary embolism to the first subsegmental pulmonary artery level. 2. No acute abnormality is seen within the chest. 3. Hepatomegaly with diffuse hepatic steatosis. 4. Status post cholecystectomy. Ordered By: CLARISA LANG Interpreted By: Rose Marie Buenrostro MD, 02/03/2025 12:15 PM Narrative 02/03/2025 12:23 PM CDT [facility] [address] [place] [address] PROCEDURE: CTA CHEST PE PROTOCOL. HISTORY: Evaluate for pulmonary embolism. Shortness of breath. Chest pain. Elevated d-dimer. TECHNIQUE: Contrast enhanced helical CT pulmonary angiography was then performed. Routine transaxial and post-processed (sagittal and coronal MPR) reformations of the acquired data sets were obtained (Isovue-370, 80 mL). Standard 3-D (MIP) reformations of the acquired data sets were also obtained. A dose lowering technique was used for this procedure, which may include, but is not limited to, dose reduction technique, automated exposure control, the use of iterative reconstruction, and ALARA (As Low As Reasonably Achievable) / Image Gently techniques. COMPARISON: AP chest radiograph, 02/03/2025. PULMONARY CTA FINDINGS: This is a diagnostic quality helical CT pulmonary angiogram. There is no acute pulmonary embolism to the first subsegmental pulmonary artery level. OTHER FINDINGS: Support Devices: None. Heart/Pericardium/Great Vessels: Cardiac size is normal. Enlarged. Artery atherosclerosis cannot be accurately evaluated on this contrast-enhanced exam. There is no pericardial effusion. There is mild thoracic aortic and branch vessel atherosclerosis, portions calcific. The main pulmonary artery is normal in diameter. The mid ascending thoracic aorta measures up to 3.6 cm. Pleural Spaces: The pleural spaces are clear. Mediastinum/Julieta: There is no mediastinal or hilar lymph node enlargement. Neck Base/Chest Wall/Diaphragm/Upper Abdomen: There is no supraclavicular or axillary lymph node enlargement. Hepatomegaly with diffuse hepatic steatosis. Status post cholecystectomy. The visualized structures within the upper abdomen are otherwise within normal limits. Limited imaging through the upper abdomen is within normal limits. Multilevel degenerative change is present in the spine. Lungs/Central Airways: The trachea and central airways are clear normal in caliber. There is bilateral dependent atelectasis. No focal consolidation. No suspicious pulmonary nodules are identified. Procedure Note Rose Marie Buenrostro MD - 02/03/2025 [facility] [address] [place] [address] PROCEDURE: CTA CHEST PE PROTOCOL. HISTORY: Evaluate for pulmonary embolism. Shortness of breath. Chestpain. Elevated d-dimer. TECHNIQUE: Contrast enhanced helical CT pulmonary angiography was thenperformed. Routine transaxial and post-processed (sagittal and coronalMPR) reformations of the acquired data sets were obtained (Isovue-370, 80mL). Standard 3-D (MIP) reformations of the acquired data sets were alsoobtained. A dose lowering technique was used for this procedure, which may include,but is not limited to, dose reduction technique, automated exposurecontrol, the use of iterative reconstruction, and ALARA (As Low AsReasonably Achievable) / Image Gently techniques. COMPARISON: AP chest radiograph, 02/03/2025. PULMONARY CTA FINDINGS: This is a diagnostic quality helical CT pulmonaryangiogram. There is no acute pulmonary embolism to the first subsegmentalpulmonary artery level. OTHER FINDINGS: Support Devices: None. Heart/Pericardium/Great Vessels: Cardiac size is normal. Enlarged. Artery atherosclerosis cannot beaccurately evaluated on this contrast-enhanced exam. There is no pericardial effusion. There is mild thoracic aortic and branch vessel atherosclerosis,portions calcific. The main pulmonary artery is normal in diameter. The mid ascendingthoracic aorta measures up to 3.6 cm. Pleural Spaces: The pleural spaces are clear. Mediastinum/Julieta: There is no mediastinal or hilar lymph nodeenlargement. Neck Base/Chest Wall/Diaphragm/Upper Abdomen: There is no supraclavicularor axillary lymph node enlargement. Hepatomegaly with diffuse hepaticsteatosis. Status post cholecystectomy. The visualized structures withinthe upper abdomen are otherwise within normal limits. Limited imagingthrough the upper abdomen is within normal limits. Multilevel degenerativechange is present in the spine. Lungs/Central Airways: The trachea and central airways are clear normalin caliber. There is bilateral dependent atelectasis. No focalconsolidation. No suspicious pulmonary nodules are identified. IMPRESSION: 1. There is no acute pulmonary embolism to the first subsegmentalpulmonary artery level. 2. No acute abnormality is seen within the chest. 3. Hepatomegaly with diffuse hepatic steatosis. 4. Status post cholecystectomy. Ordered By: CLARISA LANG Interpreted By: Rose Marie Buenrostro MD, 02/03/2025 12:15 PM us Clarisa Lang MD CT Final Result * XR CHEST PORTABLE (02/03/2025 11:02 AM CDT) Anatomical Region Laterality Modality Chest Radiographic Michelle ging 02/03/2025 11:0 4 AM CDT Impressions 02/03/2025 11:05 AM CDT ======== IMPRESSION: ======== 1. No acute cardiopulmonary abnormalities. 2. Gaseous distention of stomach partially visualized. Correlate clinically. Ordered By: CLARISA LANG Interpreted By: Dante Muhammad MD, 02/03/2025 11:04 AM Narrative 02/03/2025 11:05 AM CDT [facility] [address] [place] [address] Examination: Chest Radiograph, 1 view Exam Date/Time: 02/03/2025 10:47 AM Reason For Exam: CP, SOB Comparison: 09/11/2020 Technique: Single AP view of the chest. Findings: Heart size is normal. Pulmonary vasculature is within normal limits. There is no large pleural effusion or pneumothorax. No focal infiltrate or consolidative change. Gaseous distention possibly of the stomach is suspected. This is incompletely visualized. Procedure Note Dante Muhammad MD - 02/03/2025 [facility] [address] [place] [address] Examination: Chest Radiograph, 1 view Exam Date/Time: 02/03/2025 10:47 AM Reason For Exam: CP, SOB Comparison: 09/11/2020 Technique: Single AP view of the chest. Findings: Heart size is normal. Pulmonary vasculature is within normallimits. There is no large pleural effusion or pneumothorax. No focalinfiltrate or consolidative change. Gaseous distention possibly of thestomach is suspected. This is incompletely visualized. ======== IMPRESSION: ======== 1. No acute cardiopulmonary abnormalities. 2. Gaseous distention of stomach partially visualized. Correlateclinically. Ordered By: CLARISA LANG Interpreted By: Dante Muhammad MD, 02/03/2025 11:04 AM Clarisa Lang MD GENERAL IMAGING Final Result * (ABNORMAL) D-DIMER, QUANTITATIVE (02/03/2025 10:35 AM CDT) D-DIMER 627(H) 0 - 500 ng{FEU}/mL 02/03/2025 10:59 AM CDT [facility] ([facility] Comment: D-Dimer values less than or equal to 500 ng/mL FEU have a negative predictive value of >95% for exclusion of deep vein thrombosis and pulmonary embolism. In patients over 50 (who tend to have higher normal baseline D-Dimer values), recent studies suggest age-adjusted D-Dimer cutoff values (calculated as: age [years] x 10 ng/mL) result in equivalent outcomes and no additional false negative findings. 02/03/2025 10:3 5 AM CDT us Clarisa Lang MD LABORATORY Final Result [facility] [address] [place] [address], [place] [phone] * PRO-BRAIN NATRIURETIC PEPTIDE (02/03/2025 10:35 AM CDT) PRO-B TYPE NATRIURETIC PEPTIDE 34 <125 PG/ML 02/03/2025 11:[address] [facility] Comment: CUT POINTS ESTABLISHED BY INTERNATIONAL COLL[employer] ON NT PROBNP (ICON) STUDY (2006). AGE INDEPENDENT: <300 PG/ML HAS A 99% NEGATIVE PREDICTIVE VALUE FOR EXCLUDING ACUTE CHF <50 YEARS: >450 PG/ML IS CONSISTENT WITH ACUTE CHF 50-75 YEARS: >900 PG/ML IS CONSISTENT WITH ACUTE CHF >75 YEARS: >1800 PG/ML IS CONSISTENT WITH ACUTE CHF IN PATIENTS WITH RENAL INSUFFICIENCY (GFR <60), >1200 PG/ML YIELDS A DIAGNOSTIC SENSITIVITY AND SPECIFICITY OF 89% AND 72% FOR ACUTE CHF. 02/03/2025 10:3 5 AM CDT us Clarisa Lang MD LABORATORY Final Result Performing Organization Address City/[facility]/ZIP Co de Phone Number [facility] [address] [place] [address], [place] [phone] * MAGNESIUM (02/03/2025 10:35 AM CDT) MAGNESIUM 2.0 1.8 - 2.4 MG/DL 02/03/2025 11:[address] [facility] 02/03/2025 10:3 5 AM CDT us Clarisa Lang MD LABORATORY Final Result [facility] [address] [place] [address], [place] [phone] * TROPONIN, QUANT (02/03/2025 10:35 AM CDT) TROPONIN I HIGH SENSITIVITY 5 0 - 50 ng/L 02/03/2025 11:[address] [facility] Comment: HIGH DOSES OF BIOTIN, TROPONIN-SPECIFIC AUTOANTIBODIES, AND ANTIBODY THERAPY CONTAINING HAMA MAY INTERFERE WITH THIS TEST RESULT. CORRELATION TO CLINICAL HISTORY AND PRESENTATION RECOMMENDED. 02/03/2025 10:3 5 AM CDT us Clarisa Lang MD LABORATORY Final Result Performing Organization Address City/[facility]/ZIP Co de Phone Number [facility] [address] [place] [address], [place] [phone] * LIPASE (02/03/2025 10:35 AM CDT) Pathologist [facility] LIPASE 17 16 - 77 UNITS/L 02/03/2025 11:[address] [facility] 02/03/2025 10:3 5 AM CDT us Clarisa Lang MD LABORATORY Final Result Performing Organization Address [facility] Co de Phone Number [facility] [address] [place] [address], [place] [phone] * PROTIME/INR, VENOUS (02/03/2025 10:35 AM CDT) Pathologist [facility] PROTIME 11.4 9.1 - 12.4 SEC 02/03/2025 10:[address] [facility] INR 1.0 02/03/2025 10:[address] [facility] Comment: Recommend INR ranges for Oral Anticoagulant Therapy: Mechanical Cardiac Values 2.5-3.5 All others indication 2.0-3.0 02/03/2025 10:3 5 AM CDT us Clarisa Lang MD LABORATORY Final Result Performing Organization Address City/[facility]/ZIP Co de Phone Number [facility] [address] [place] [address], * (ABNORMAL) COMPREHENSIVE METABOLIC PANEL (02/03/2025 10:35 AM CDT) [facility] GLUCOSE 144(H) 70 - 99 MG/DL 02/03/2025 11:[address] [facility] BUN 14 7 - 18 MG/DL 02/03/2025 11:[address] [facility] CREATININE S/P/B 0.61 0.55 - 1.02 MG/DL 02/03/2025 11:[address] [facility] SODIUM S/P/B 139 136 - 145 MMOL/L 02/03/2025 11:[address] [facility] POTASSIUM S/P/B 4.3 3.5 - 5.1 MMOL/L 02/03/2025 11:[address] [facility] CHLORIDE S/P/B 103 100 - 108 MMOL/L 02/03/2025 11:[address] [facility] CO2 31.1 21 - 32 MMOL/L 02/03/2025 11:[address] [facility] CALCIUM S/P/B 8.6 8.5 - 10.1 MG/DL 02/03/2025 11:[address] [facility] BILIRUBIN TOTAL S/P/B 0.2 0.2 - 1.2 MG/DL 02/03/2025 11:[address] [facility] TOTAL PROTEIN S/P/B 7.3 6.4 - 8.2 G/DL 02/03/2025 11:[address] [facility] ALBUMIN S/P/B 3.4 3.4 - 5.0 G/DL 02/03/2025 11:[address] [facility] AST 37 15 - 37 U/L 02/03/2025 11:[address] [facility] ALT 40 14 - 55 U/L 02/03/2025 11:[address] [facility] ALKALINE PHOSPHATASE S/P/B 163(H) 50 - 136 U/L 02/03/2025 11:[address] [facility] ANION GAP 4.9(L) 5 - 15 MMOL/L 02/03/2025 11:[address] [facility] BUN CREATININE RATIO 23.0 6 - 26 02/03/2025 11:[address] [facility] A/G RATIO 0.9(L) 1.0 - 2.0 RATIO 02/03/2025 11:[address] [facility] GFR ESTIMATE >90 >90 ML/MIN/1.7 3 M2 02/03/2025 11:[address] [facility] Comment: NOTE: eGFR is not calculated for patients <18 years of age. This is an estimated GFR calculation using the new CKD EPI creatinine equation without race and so does not require a correction factor for race. This estimated GFR should not be used for calculating drug doses. 02/03/2025 10:3 5 AM CDT us Clarisa Lang MD LABORATORY Final Result [facility] [address] [place] [address], * (ABNORMAL) CBC W/DIFF AUTOMATED (02/03/2025 10:35 AM CDT) WBC 7.65 4.4 - 11.0 x10'3/uL 02/03/2025 10:[address] [facility] RBC 5.01 4.50 - 5.10 x10'6/uL 02/03/2025 10:[address] [facility] HGB 13.7 12.3 - 15.3 G/DL 02/03/2025 10:[address] [facility] HCT 43.2 35.9 - 44.6 % 02/03/2025 10:[address] [facility] MCV 86.2 80.0 - 96.0 FL 02/03/2025 10:[address] [facility] MCH 27.3 25.3 - 30.9 PG 02/03/2025 10:[address] [facility] MCHC 31.7 31.0 - 34.1 G/DL 02/03/2025 10:[address] [facility] RDW 13.9 12.4 - 15.1 % 02/03/2025 10:47 AM [facility] PLT 258 151 - 353 x10'3/uL 02/03/2025 10:[address] [facility] MPV 9.3(L) 9.6 - 12.0 FL 02/03/2025 10:[address] [facility] RBC MORPHOLOGY NORMAL 02/03/2025 10:[address] [facility] PLT MORPH. NORMAL 02/03/2025 10:[address] [facility] WBC MORPHOLOGY NORMAL 02/03/2025 10:[address] [facility] LYMPHOCYTES % 25.6 15.8 - 45.0 % 02/03/2025 10:[address] [facility] NEUTROPHILS % 61.1 42.1 - 71.9 % 02/03/2025 10:[address] [facility] MONOCYTES % 7.8 5.7 - 12.5 % 02/03/2025 10:[address] [facility] EOSINOPHILS 3.7 0.0 - 5.6 % 02/03/2025 10:[address] [facility] BASOPHILS 0.9 0.0 - 1.3 % 02/03/2025 10:[address] [facility] ABS. NEUTROPHILS 4.67 1.40 - 6.00 x10'3/uL 02/03/2025 10:[address] [facility] IMMATURE GRANS % 0.9(H) 0.0 - 0.5 % 02/03/2025 10:[address] [facility] ABS. LYMPHOCYTES 1.96 0.80 - 4.70 x10'3/uL 02/03/2025 10:[address] [facility] 02/03/2025 10:3 5 AM CDT us Clarisa Lang MD LABORATORY Final Result [facility] [address] [place] [address], documented in this encounter Visit Diagnoses Diagnosis Shortness of breath- Primary Medication side effect, initial encounter Rapid weight gain Abnormal weight gain documented in this encounter Administered Medications Inactive Administered Medications - up to 3 most recent administrations Medication Order MAR Action Action Date Dose Rate Site albuterol sulfate HFA 108 (90 Base) MCG/ACT inhaler 2 puff 2 puff, Inhalation, Every 6 hours PRN, Wheezing, 3 doses, Starting on Sun02/03/25 at 1052, Until Sun02/03/25 at 1511, MEDICATION FOR TAKE HOME Given 02/03/2025 10:57 AM CDT 2 puffs iopamidol (ISOVUE-370) 76 % injection 80 mL 80 mL, Intravenous, IMG once as needed, Contrast, 1 dose, Starting on Sun02/03/25 at 1203, Until 7/29/25 at 1205 Given 02/03/2025 12:05 PM CDT 80 mLs Left Arm documented in this encounter Active and Recently Administered Medications Times are shown in CDT. PRN Medication Order 02/01/2025 02/02/2025 02/03/2025 albuterol sulfate HFA 108 (90 Base) MCG/ACT inhaler 2 puff 2 puff, Inhalation, Every 6 hours PRN, Wheezing, 3 doses, Starting on Sun02/03/25 at 1052, Until Sun02/03/25 at 1511, MEDICATION FOR TAKE HOME 1057 (Given - Provid er: Alida Bah, DOOR MACHINE OPERATOR) iopamidol (ISOVUE-370) 76 % injection 80 mL (COMPLETED) 80 mL, Intravenous, IMG once as needed, Contrast, 1 dose, Starting on Sun02/03/25 at 1203, Until Sun02/03/25 at 1205 1205 (Given - Provid er: Gloria Berg, RTR) documented in this encounter Additional Health Concerns Assessment Noted Time PHQ-9 Depression Total Score: 3 12/05/19 25 9:09 AM CDT documented as of this encounter Care Teams County Nurse Relationship Specialty [place] [address] [facility] [address] [place] [address] PCP - General INTERNAL MEDICINE 01/17/25 documented as of this encounter
--- OUTSIDE RECORDS SUMMARY | 2025-02-04 09:51 | XMS_ITS | Encounter Summary ---
Author Organization [facility] Address [facility] [place] [address] Care Team Providers Care Tester Electronic Scale Name Role Phone Angela Olguin NP Primary Care Provider [phone] Gloria Castro [facility] Primary Care Provider + Freddie Zepeda MD Primary Care Provider [phone] Encounter Details Date Type Department Care Team (Late st Contact Info) Description 04/11/2024 QualiLifet Message Enc [facility] Medical Group Family & Internal Medicine [facility] [address] [place] [address] [place] Ol[place] [id number] [place] [address] [place] Social History Tobacco Use Types Packs/Day Years [...] Date Recorded Patient Health Questionnaire-2 Score 0 07/16/2023 Education Answer Date Recorded What is the highest level of school you have completed or the highest degree you have received? High school graduate 08/02/2018 Comments No Sex and Gender Information Value Date Recorded Sex Assigned at Female 08/03/2018 9:44 AM NETBACKUP ADMIN Legal Sex Female 7:04 PM CDT Gender Identity Female 08/03/2018 9:44 AM NETBACKUP ADMIN Sexual Orientation Straight 08/02/2018 9: 02 AM NETBACKUP ADMIN 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 Plan of Treatment Upcoming Encounters Date Type Department Care Team (Late st Contact Info) Description 03/16/2025 11:20 AM CDT Office Visit [facility] Medical Group Family & Internal Medicine [facility] [address] [place] [address] [place] [address] [facility] [place] [id number] documented as of this encounter Visit Diagnoses Not on filedocumented in this encounter Additional Health Concerns Assessment Noted Time PHQ-9 Depression Total Score: 0 07/16/19 24 7:38 AM NETBACKUP ADMIN documented as of this encounter Care Teams Tester Electronic Scale Relationship Specialty Start [place] [address] [facility] [address] [facility] [address] PCP - General Nurse Practitioner Family 04/23/2309/07 Gloria Castro, TRAIN ENGINEER- [address] [facility], [address] [place] [address] PCP - General Nurse Practitioner Family 09/30/2401/06 [place] [address] [facility] [address] [place] [address] PCP - General INTERNAL MEDICINE 01/17/25 documented as of this encounter
--- OUTSIDE RECORDS SUMMARY | 2025-02-04 09:51 | XMS_ITS | Encounter Summary ---
Author Organization [facility] Address [address] [place] [address] Care Team Providers Care Resolution Analyst Name Role Phone Es Lazcano WEB OPERATIONS LEAD Primary Care Provider Unav ailable Vidhya Baptiste [facility] Primary Care Provider + Angela Olguin WEB OPERATIONS LEAD Primary Care Provider [phone] Gloria Castro [facility] Primary Care Provider + Freddie Zepeda MD Primary Care Provider [phone] Reason for Visit * Reason Onset Date Comments Refill Request 02/02/2019 Encounter Details Date Type Department Care Team (Late st Contact Info) Description 02/02/2019 DearLocalt Message [facility] Medical Group Family & Internal Medicine [facility] [address] [place] [address] Es Lazcano, WEB OPERATIONS LEAD RE: Other Social History Tobacco Use Types Packs/Day Years [...] Sex Assigned at Female 08/03/2018 9:44 AM BODY FORMER Legal Sex Female 7:04 PM CDT Gender Identity Female 08/03/2018 9:44 AM BODY FORMER Sexual Orientation Straight 08/02/2018 9: 02 AM BODY FORMER 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 Plan of Treatment Upcoming Encounters Date Type Department Care Team (Late st Contact Info) Description 03/16/2025 11:20 AM CDT Office Visit [facility] Medical Group Family & Internal Medicine [facility] [address] [place] [address] [place] [address] [address] documented as of this encounter Visit Diagnoses Diagnosis Essential hypertension- Primary Unspecified essential hypertension documented in this encounter Additional Health Concerns Infection Onset Date Last Indicated Resolved Time COVID-19 Rule Out 09/11/2020 09/11/2020 09/11/2020 10:00 AM BODY FORMER COVID-19 Rule Out 05/16/2023 05/16/2023 05/16/2023 10:09 AM BODY FORMER Influenza - Seasonal 05/16/2023 05/16/2023 023 12:32 AM BODY FORMER documented as of this encounter Care Teams Resolution Analyst Relationship Specialty Start Date End Date Es Lazcano WEB OPERATIONS LEAD PCP - General NURSE PRACTITIONER 08/02/18 07/25/21 Vidhya Baptiste AUTO SERVICE INSTRUCTOR- PCP - General Nurse Practitioner Family 07/26/21 [place] [address] [facility] [address] [facility] [place] [address] PCP - General Nurse Practitioner Family 04/23/23 310/31 Gloria Castro [facility]- [address] [place] [address] PCP - General Nurse Practitioner Family 09/30/2401/06 [place] [address] [place] [address] PCP - General INTERNAL MEDICINE 01/17/25 documented as of this encounter
--- OUTSIDE RECORDS SUMMARY | 2025-02-04 09:51 | XMS_ITS | Encounter Summary ---
Author Organization [facility] Address [address] [place] [address] Care Team Providers Care Optical Manager Name Role Phone Gloria Castro [facility] Primary Care Provider + Freddie Zepeda MD Primary Care Provider [phone] Encounter Details Date Type Department Care Team (Late st Contact Info) Description 12/18/2024 Results Follow-Up [facility] [address] [place] [address] [place] [address] Gloria Castro, [facility] [address] [address], [address] [place], [place] [id number] Cytopath Cerv/Vag Thin Layer Social History Tobacco Use Types Packs/Day Years [...] Sex Assigned at Female 08/03/2018 9:44 AM CASE TECHNICIAN Legal Sex Female 7:04 PM CDT Gender Identity Female 08/03/2018 9:44 AM CASE TECHNICIAN Sexual Orientation Straight 08/02/2018 9: 02 AM CASE TECHNICIAN 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 Plan of Treatment Upcoming Encounters Date Type Department Care Team (Late st Contact Info) Description 03/16/2025 11:20 AM CDT Office Visit [facility] Medical Group Family & Internal Medicine [facility] [address] [place] [address] [place] [address] [facility] [employer] [address] [place] [address] documented as of this encounter Visit Diagnoses Not on filedocumented in this encounter Additional Health Concerns Assessment Noted Time PHQ-9 Depression Total Score: 3 12/05/19 9:09 AM CDT documented as of this encounter Care Teams Optical Manager Relationship Specialty Start Date End Date Gloria Castro, PRODUCT DEVELOPMENT ENGINEER- [address] [facility], [address] [address] PCP - General Nurse Practitioner Family 09/30/2401/06 [place] [address] [facility] [address] [place] [address] PCP - General INTERNAL MEDICINE 01/17/25 documented as of this encounter
--- OUTSIDE RECORDS SUMMARY | 2025-02-04 09:51 | XMS_ITS | Encounter Summary ---
Author Organization [facility] Address [facility] [place] [address] Care Team Providers Care Learning Analyst Name Role Phone Es Lazcano NEON SIGN MECHANIC Primary Care Provider Unav ailable Vidhya Baptiste [facility] Primary Care Provider + Angela Olguin NEON SIGN MECHANIC Primary Care Provider [phone] Gloria Castro [facility] Primary Care Provider + Freddie Zepeda MD Primary Care Provider [phone] Encounter Details Date Type Department Care Team (Late st Contact Info) Description 10/03/2019 [facility]s [address] [place], [place] [id number] [facility] Provider account balance Social History Tobacco Use Types Packs/Day Years [...] 07/10 PHQ-2 Answer Date Recorded PHQ-2 Score 2 06/10/2019 Education Answer Date Recorded What is the highest level of school you have completed or the highest degree you have received? High school graduate 08/02/2018 Comments No Sex and Gender Information Value Date Recorded Sex Assigned at Female 08/03/2018 9:44 AM BLOCK TESTER Legal Sex Female 7:04 PM CDT Gender Identity Female 08/03/2018 9:44 AM BLOCK TESTER Sexual Orientation Straight 08/02/2018 9: 02 AM BLOCK TESTER 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 Plan of Treatment Upcoming Encounters Date Type Department Care Team (Late st Contact Info) Description 03/16/2025 11:20 AM CDT Office Visit [facility] Medical Group Family & Internal Medicine [facility] [address] [place] [address] [place] [address] [facility] [address] [place] [address] documented as of this encounter Visit Diagnoses Not on filedocumented in this encounter Additional Health Concerns Infection Onset Date Last Indicated Resolved Time COVID-19 Rule Out 09/11/2020 09/11/2020 09/11/2020 10:00 AM BLOCK TESTER COVID-19 Rule Out 05/16/2023 05/16/2023 05/16/2023 10:09 AM BLOCK TESTER Influenza - Seasonal 05/16/2023 05/16/2023 023 12:32 AM BLOCK TESTER documented as of this encounter Care Teams Learning Analyst Relationship Specialty Start Date End Date Es Lazcano NP PCP - General NURSE PRACTITIONER 08/02/18 07/25/21 Vidhya Baptiste, [facility]- PCP - General Nurse Practitioner Family 07/26/21 [place] [address] [facility] [address] [address] PCP - General Nurse Practitioner Family 04/23/23 3/10/31 Gloria Castro, [facility]- [address] [place] [address] PCP - General Nurse Practitioner Family 09/30/2401/06 [place] [address] [address] [place] [address] PCP - General INTERNAL MEDICINE 01/17/25 documented as of this encounter
--- OUTSIDE RECORDS SUMMARY | 2025-02-04 09:51 | XMS_ITS | Encounter Summary ---
Author Organization [facility] Address [facility] [place] [address] Care Team Providers Care Manager Ccu Name Role Phone Es Lazcano LOOP CUTTER Primary Care Provider Unav ailable Vidhya Baptiste [facility] Primary Care Provider + Angela Olguin LOOP CUTTER Primary Care Provider [phone] Gloria Castro [facility] Primary Care Provider + Freddie Zepeda MD Primary Care Provider [phone] Encounter Details Date Type Department Care Team (Late st Contact Info) Description 03/10/2021 MeFeediat Message Enc [facility] Medical Group Family & Internal Medicine [facility] [address] [place] [address] Vidhya Baptiste [facility] [address] [place] [phone] RE: Question Social History Tobacco Use Types Packs/Day Years Used Date Smoking Tobacco: Former Cigarettes Q uit: 1992 Smokeless Tobacco: Never Alcohol Use Standard Drinks/Week [...] please move on to questions 3-9 2 03/10/2021 Education Answer Date Recorded What is the highest level of school you have completed or the highest degree you have received? High school graduate 08/02/2018 Comments No Sex and Gender Information Value Date Recorded Sex Assigned at Female 08/03/2018 9:44 AM FITNESS AND WELLNESS INSTRUCTOR Legal Sex Female 7:04 PM CDT Gender Identity Female 08/03/2018 9:44 AM FITNESS AND WELLNESS INSTRUCTOR Sexual Orientation Straight 08/02/2018 9: 02 AM FITNESS AND WELLNESS INSTRUCTOR 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 No / Unsure 03/10/2021 7:17 AM CDT documented as of this encounter Plan of Treatment Upcoming Encounters Date Type Department Care Team (Late st Contact Info) Description 03/16/2025 11:20 AM CDT Office Visit [facility] Medical Group Family & Internal Medicine [place] [phone] [place] [address] [address] documented as of this encounter Visit Diagnoses Not on filedocumented in this encounter Additional Health Concerns Infection Onset Date Last Indicated Resolved Time COVID-19 Rule Out 05/16/2023 05/16/2023 05/16/2023 10:09 AM FITNESS AND WELLNESS INSTRUCTOR Influenza - Seasonal 05/16/2023 05/16/2023 023 12:32 AM FITNESS AND WELLNESS INSTRUCTOR Assessment Noted Time PHQ-9 Depression Total Score: 11 021 7:28 AM CDT documented as of this encounter Care Teams Manager Ccu Relationship Specialty Start Date End Date Es Lazcano NP PCP - General NURSE PRACTITIONER 08/02/18 07/25/21 Vidhya Baptiste FNP- PCP - General Nurse Practitioner Family 07/26/21 [place] [address] [place] [address] PCP - General Nurse Practitioner Family 04/23/2309/07 Gloria Castro, [facility]- [address], [address] [place] [address] PCP - General Nurse Practitioner Family 09/30/2401/06 [place] [address] [place] [address] PCP - General INTERNAL MEDICINE 01/17/25 documented as of this encounter
--- OUTSIDE RECORDS SUMMARY | 2025-02-04 09:51 | XMS_ITS | Encounter Summary ---
Author Organization [facility] Address [address] [place] [address] Care Team Providers Care Special Effects Makeup Artist Name Role Phone Vidhya Baptiste [facility] Primary Care Provider + Angela Olguin AIRPLANE DESIGNER Primary Care Provider [phone] Gloria Castro [facility] Primary Care Provider + Freddie Zepeda MD Primary Care Provider [phone] Encounter Details Date Type Department Care Team (Late st Contact Info) Description 06/19/2022 Altierret Message Enc [facility] Medical Group Family & Internal Medicine [facility] [address] [place] [address] Leanne Calvillo, [place] [address] [address] [place] Social History Tobacco Use [...] Sex Assigned at Female 08/03/2018 9:44 AM LAY OUT HELPER Legal Sex Female 7:04 PM CDT Gender Identity Female 08/03/2018 9:44 AM LAY OUT HELPER Sexual Orientation Straight 08/02/2018 9: 02 AM LAY OUT HELPER 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 No / Unsure 06/14/2022 1:50 PM LAY OUT HELPER documented as of this encounter Plan of Treatment Upcoming Encounters Date Type Department Care Team (Late st Contact Info) Description 03/16/2025 11:20 AM CDT Office Visit [facility] Medical Group Family & Internal Medicine [facility] [address] [place], [place] [address] [place] [address] [place] [address] documented as of this encounter Visit Diagnoses Not on filedocumented in this encounter Additional Health Concerns Infection Onset Date Last Indicated Resolved Time COVID-19 Rule Out 05/16/2023 05/16/2023 05/16/2023 10:09 AM LAY OUT HELPER Influenza - Seasonal 05/16/2023 05/16/2023 023 12:32 AM LAY OUT HELPER Assessment Noted Time PHQ-9 Depression Total Score: 9 07/30/19 22 12:32 PM LAY OUT HELPER documented as of this encounter Care Teams Special Effects Makeup Artist Relationship Specialty Start Date End Date Vidhya Baptiste FNP-BC PCP - General Nurse Practitioner Family 07/26/21 Angela Olguin, AIRPLANE DESIGNER [address] [place] [address] [address] [place] [address] PCP - General Nurse Practitioner Family 04/23/2309/07 Gloria Castro, [facility]- [address], [address] [place] [address] PCP - General Nurse Practitioner Family 09/30/2401/06 [place] [address] [place] [address] PCP - General INTERNAL MEDICINE 01/17/25 documented as of this encounter
--- OUTSIDE RECORDS SUMMARY | 2025-02-04 09:51 | XMS_ITS | Encounter Summary ---
Author Organization [facility] Address [facility] [place] [address] Care Team Providers Care Site Supervising Technical Operator Name Role Phone Vidhya Baptiste [facility] Primary Care Provider + Angela Olguin NP Primary Care Provider [phone] [facility] Primary Care Provider + Freddie Zepeda MD Primary Care Provider [phone] Encounter Details Date Type Department Care Team (Late st Contact Info) Description 07/29/2021 MyCPotomac Research Groupt Message Enc [facility] Medical Group Family & Internal Medicine [facility] [address] [place] [address] 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 No / Unsure 07/26/2021 6:54 AM DITCH RIDER documented as of this encounter Plan of Treatment Upcoming Encounters Date Type Department Care Team (Late st Contact Info) Description 03/16/2025 11:20 AM CDT Office Visit [facility] Medical Group Family & Internal Medicine [facility] [address] [place] [address] [place] [address] [address] documented as of this encounter Visit Diagnoses Not on filedocumented in this encounter Additional Health Concerns Infection Onset Date Last Indicated Resolved Time COVID-19 Rule Out 05/16/2023 05/16/2023 05/16/2023 10:09 AM DITCH RIDER Influenza - Seasonal 05/16/2023 05/16/2023 023 12:32 AM DITCH RIDER Assessment Noted Time PHQ-9 Depression Total Score: 11 021 7:28 AM CDT documented as of this encounter Care Teams Site Supervising Technical Operator Relationship Specialty Start Date End Date Vidhya Baptiste FNP-BC PCP - General Nurse Practitioner Family 07/26/21 Angela [place] [address] [place] [address] [address] [place] [address] PCP - General Nurse Practitioner Family 04/23/2309/07 Gloria Castro [facility]- [address], [address] [place] [address] PCP - General Nurse Practitioner Family 09/30/2401/06 [place] [address] [place] [address] PCP - General INTERNAL MEDICINE 01/17/25 documented as of this encounter
--- OUTSIDE RECORDS SUMMARY | 2025-02-04 09:51 | XMS_ITS | Encounter Summary ---
Author Organization [facility] Address [address] [place] [address] Care Team Providers Care Diesel Locomotive Crane Operator Name Role Phone [facility] Primary Care Provider + Freddie Zepeda MD Primary Care Provider [phone] Encounter Details Date Type Department Care Team (Late st Contact Info) Description 09/30/2024 iRulet Message Enc [facility] Medical Group Family & Internal Medicine 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 [address] [place] [address] [place] [address] [facility] [employer] [address] [place] [address] documented as of this encounter Visit Diagnoses Not on filedocumented in this encounter Additional Health Concerns Assessment Noted Time PHQ-9 Depression Total Score: 0 07/16/19 24 7:38 AM CUSTOMER SOLUTIONS SUPERVISOR documented as of this encounter Care Teams Diesel Locomotive Crane Operator Relationship Specialty Start Date End Date Gloria Castro, [employer] AND BUFFER APPRENTICE- [address] [facility], [address] [place] [address] PCP - General Nurse Practitioner Family 09/30/2401/06 [place] [address] [facility] [employer] [address] [place] [address] PCP - General INTERNAL MEDICINE 01/17/25 documented as of this encounter
--- OUTSIDE RECORDS SUMMARY | 2025-02-04 09:51 | XMS_ITS | Encounter Summary ---
Author Organization [facility] Address [facility] [place] [address] Care Team Providers Care Joint Filler Name Role Phone Es Lazcano CONSUMER EDUCATION SPECIALIST Primary Care Provider Unav ailable Vidhya Baptiste [facility] Primary Care Provider + Angela Olguin CONSUMER EDUCATION SPECIALIST Primary Care Provider [phone] Gloria Castro [facility] Primary Care Provider + Freddie Zepeda MD Primary Care Provider [phone] Encounter Details Date Type Department Care Team (Late st Contact Info) Description 10/03/2018 TradeBeam Message Enc [facility] Medical Group Family & Internal Medicine [facility] [address] [place] [address] Es Lazcano NP RE: Other Social History Tobacco Use Types [...] Sex Assigned at Female 08/03/2018 9:44 AM DATABASE TESTER Legal Sex Female 7:04 PM CDT Gender Identity Female 08/03/2018 9:44 AM DATABASE TESTER Sexual Orientation Straight 08/02/2018 9: 02 AM DATABASE TESTER 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 Plan of Treatment Upcoming Encounters Date Type Department Care Team (Late st Contact Info) Description 03/16/2025 11:20 AM CDT Office Visit [facility] Medical Group Family & Internal Medicine [facility] [address] [place] [address] [place] [address] [facility] [address] [place] [address] documented as of this encounter Visit Diagnoses Not on filedocumented in this encounter Additional Health Concerns Infection Onset Date Last Indicated Resolved Time COVID-19 Rule Out 09/11/2020 09/11/2020 09/11/2020 10:00 AM DATABASE TESTER COVID-19 Rule Out 05/16/2023 05/16/2023 05/16/2023 10:09 AM DATABASE TESTER Influenza - Seasonal 05/16/2023 05/16/2023 023 12:32 AM DATABASE TESTER documented as of this encounter Care Teams Joint Filler Relationship Specialty Start Date End Date Es Lazcano NP PCP - General NURSE PRACTITIONER 08/02/18 07/25/21 Vidhya Baptiste, [facility]- PCP - General Nurse Practitioner Family 07/26/21 [place] [address] [facility] [address] [facility] [place] [address] PCP - General Nurse Practitioner Family 04/23/23 310/31 Gloria Castro, TRACER CLERK- [address] [facility] [place] [address] PCP - General Nurse Practitioner Family 09/30/2401/06 [place] [address] [place] [address] PCP - General INTERNAL MEDICINE 01/17/25 documented as of this encounter
--- OUTSIDE RECORDS SUMMARY | 2025-02-04 09:51 | XMS_ITS | Encounter Summary ---
Author Organization [facility] Address [address] [place] [address] Care Team Providers Care Senior Receptionist Name Role Phone Vidhya Baptiste [facility] Primary Care Provider + Angela Olguin NP Primary Care Provider [phone] Gloria Castro [facility] Primary Care Provider + Freddie Zepeda MD Primary Care Provider [phone] Encounter Details Date Type Department Care Team (Late st Contact Info) Description 08/08/2021 MyCVeeipt Message Enc [facility] Medical Group Family & Internal Medicine [facility] [address] [place] [address] Vidhya Baptiste [facility] [address] [place] [phone] Intermittent leave Social History Tobacco Use Types Packs/Day Years [...] Sex Assigned at Female 08/03/2018 9:44 AM MUNITIONS HANDLER Legal Sex Female 7:04 PM CDT Gender Identity Female 08/03/2018 9:44 AM MUNITIONS HANDLER Sexual Orientation Straight 08/02/2018 9: 02 AM MUNITIONS HANDLER 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 No / Unsure 07/26/2021 6:54 AM MUNITIONS HANDLER documented as of this encounter Plan of Treatment Upcoming Encounters Date Type Department Care Team (Late st Contact Info) Description 03/16/2025 11:20 AM CDT Office Visit [facility] Medical Group Family & Internal Medicine [facility] [address] [place] [address] [place] [address] [address] documented as of this encounter Visit Diagnoses Not on filedocumented in this encounter Additional Health Concerns Infection Onset Date Last Indicated Resolved Time COVID-19 Rule Out 05/16/2023 05/16/2023 05/16/2023 10:09 AM MUNITIONS HANDLER Influenza - Seasonal 05/16/2023 05/16/2023 023 12:32 AM MUNITIONS HANDLER Assessment Noted Time PHQ-9 Depression Total Score: 9 07/30/19 22 12:32 PM MUNITIONS HANDLER documented as of this encounter Care Teams Senior Receptionist Relationship Specialty Start Date End Date Vidhya Baptiste FNP-BC PCP - General Nurse Practitioner Family 07/26/21 Angela Olguin, FOREST NURSERY WORKER [address] [facility] [address] [place] [address] PCP - General Nurse Practitioner Family 04/23/2309/07 Gloria Castro, [facility]- [address], [address] [place] [address] PCP - General Nurse Practitioner Family 09/30/2401/06 [place] [address] [place] [address] PCP - General INTERNAL MEDICINE 01/17/25 documented as of this encounter
--- OUTSIDE RECORDS SUMMARY | 2025-02-04 09:51 | XMS_ITS | Encounter Summary ---
Author Organization [facility] Address [facility] [place] [address] Care Team Providers Care Science Manager Name Role Phone Es Lazcano FILM MASKER Primary Care Provider Unav ailable Vidhya Baptiste [facility] Primary Care Provider + Angela Olguin FILM MASKER Primary Care Provider [phone] Gloria Castro [facility] Primary Care Provider + Freddie Zepeda MD Primary Care Provider [phone] Encounter Details Date Type Department Care Team (Late st Contact Info) Description 09/23/2018 Soundwave Message Enc [facility] Medical Group Family & Internal Medicine [facility] [address] [place] [address] Es Lazcano NP RE: Other [...] Sex Assigned at Female 08/03/2018 9:44 AM TORCH HEATER Legal Sex Female 7:04 PM CDT Gender Identity Female 08/03/2018 9:44 AM TORCH HEATER Sexual Orientation Straight 08/02/2018 9: 02 AM TORCH HEATER 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 Plan of Treatment Upcoming Encounters Date Type Department Care Team (Late st Contact Info) Description 03/16/2025 11:20 AM CDT Office Visit [facility] Medical Group Family & Internal Medicine [facility] [address] [place] [address] [place] [address] [facility] [address] [place] [address] documented as of this encounter Visit Diagnoses Not on filedocumented in this encounter Additional Health Concerns Infection Onset Date Last Indicated Resolved Time COVID-19 Rule Out 09/11/2020 09/11/2020 09/11/2020 10:00 AM TORCH HEATER COVID-19 Rule Out 05/16/2023 05/16/2023 05/16/2023 10:09 AM TORCH HEATER Influenza - Seasonal 05/16/2023 05/16/2023 023 12:32 AM TORCH HEATER documented as of this encounter Care Teams Science Manager Relationship Specialty Start Date End Date Es Lazcano NP PCP - General NURSE PRACTITIONER 08/02/18 07/25/21 Vidhya Baptiste, [facility]- PCP - General Nurse Practitioner Family 07/26/21 [place] [address] [facility] [address] [facility][note 3]. [place] [address] PCP - General Nurse Practitioner Family 04/23/23 310/31 Gloria Castro, BUZZSAW OPERATOR- [address] [facility] [address] [place] [address] PCP - General Nurse Practitioner Family 09/30/2401/06 [place] [address] [place] [address] PCP - General INTERNAL MEDICINE 01/17/25 documented as of this encounter
--- OUTSIDE RECORDS SUMMARY | 2025-02-04 09:51 | XMS_ITS | Encounter Summary ---
Author Organization [facility] Address [address] [place] [address] Care Team Providers Care Seamstress Fitter Name Role Phone Vidhya Baptiste [facility] Primary Care Provider + Angela Olguin NP Primary Care Provider [phone] Gloria Castro [facility] Primary Care Provider + Freddie Zepeda MD Primary Care Provider [phone] Encounter Details Date Type Department Care Team (Late st Contact Info) Description 05/23/2022 SEVENROOMS Message Enc [facility] Medical Group Family & Internal Medicine [address] [address] [facility] Provider Refill & appointment Social History Tobacco Use Types Packs/Day [...] Sex Assigned at Female 08/03/2018 9:44 AM TOOL AND CUTTER GRINDER Legal Sex Female 7:04 PM CDT Gender Identity Female 08/03/2018 9:44 AM TOOL AND CUTTER GRINDER Sexual Orientation Straight 08/02/2018 9: 02 AM TOOL AND CUTTER GRINDER 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 No / Unsure 05/25/2022 9:30 AM TOOL AND CUTTER GRINDER documented as of this encounter Plan of Treatment Upcoming Encounters Date Type Department Care Team (Late st Contact Info) Description 03/16/2025 11:20 AM CDT Office Visit [facility] Medical Group Family & Internal Medicine [facility] [address] [place] [address] [place] [address] [place] [phone] documented as of this encounter Visit Diagnoses Not on filedocumented in this encounter Additional Health Concerns Infection Onset Date Last Indicated Resolved Time COVID-19 Rule Out 05/16/2023 05/16/2023 05/16/2023 10:09 AM TOOL AND CUTTER GRINDER Influenza - Seasonal 05/16/2023 05/16/2023 023 12:32 AM TOOL AND CUTTER GRINDER Assessment Noted Time PHQ-9 Depression Total Score: 9 07/30/19 22 12:32 PM TOOL AND CUTTER GRINDER documented as of this encounter Care Teams Seamstress Fitter Relationship Specialty Start Date End Date Vidhya Baptiste FNP-BC PCP - General Nurse Practitioner Family 07/26/21 [place] [address] [facility] [address] [facility] [place] [address] PCP - General Nurse Practitioner Family 04/23/23 3/10/31 Gloria Castro, [facility]- [address], [address] [place] [address] PCP - General Nurse Practitioner Family 09/30/2401/06 [place] [address] [address] [place] [address] PCP - General INTERNAL MEDICINE 01/17/25 documented as of this encounter
--- OUTSIDE RECORDS SUMMARY | 2025-02-04 09:51 | XMS_ITS | Encounter Summary ---
Author Organization [facility] Address [facility] [place] [address] Care Team Providers Care Flat Ironer Name Role Phone Vidhya Baptiste [facility] Primary Care Provider + Angela Olguin NP Primary Care Provider [phone] Gloria Castro [facility] Primary Care Provider + Freddie Zepeda MD Primary Care Provider [phone] Encounter Details Date Type Department Care Team (Late st Contact Info) Description 09/25/2022 [employer] Message Enc [facility] Medical Group Family & Internal Medicine [facility] [address] [place] [address] Isid[facility] Provider due for appointment Social History Tobacco Use Types Packs/Day [...] Sex Assigned at Female 08/03/2018 9:44 AM LEAD CONSULTANT Legal Sex Female 7:04 PM CDT Gender Identity Female 08/03/2018 9:44 AM LEAD CONSULTANT Sexual Orientation Straight 08/02/2018 9: 02 AM LEAD CONSULTANT 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 Plan of Treatment Upcoming Encounters Date Type Department Care Team (Late st Contact Info) Description 03/16/2025 11:20 AM CDT Office Visit [facility] Medical Group Family & Internal Medicine [facility] [address] [place] [address] [place] [address] [facility] [address] [place] [address] documented as of this encounter Visit Diagnoses Not on filedocumented in this encounter Additional Health Concerns Infection Onset Date Last Indicated Resolved Time COVID-19 Rule Out 05/16/2023 05/16/2023 05/16/2023 10:09 AM LEAD CONSULTANT Influenza - Seasonal 05/16/2023 05/16/2023 023 12:32 AM LEAD CONSULTANT Assessment Noted Time PHQ-9 Depression Total Score: 9 07/30/19 22 12:32 PM LEAD CONSULTANT documented as of this encounter Care Teams Flat Ironer Relationship Specialty Start Date End Date Vidhya Baptiste, CHIEF TECHNICIAN X RAY- PCP - General Nurse Practitioner Family 07/26/21 [place] [address] [facility] [address] [place] [address] PCP - General Nurse Practitioner Family 04/23/23 310/31 Gloria Castro, CHIEF TECHNICIAN X RAY-BC [address] [facility], [address] [place] [address] PCP - General Nurse Practitioner Family 09/30/2401/06 [place] [address] [address] PCP - General INTERNAL MEDICINE 01/17/25 documented as of this encounter
--- OUTSIDE RECORDS SUMMARY | 2025-02-04 09:51 | XMS_ITS | Encounter Summary ---
Author Organization [facility] Address [address] [place] [address] Care Team Providers Care Farm Marketer Name Role Phone Es Lazcano MUSIC WORKER Primary Care Provider Unav ailable Vidhya Baptiste [facility] Primary Care Provider + Angela Olguin MUSIC WORKER Primary Care Provider [phone] Gloria Castro [facility] Primary Care Provider + Freddie Zepeda MD Primary Care Provider [phone] Encounter Details Date Type Department Care Team (Late st Contact Info) Description 01/07/2019 Hubskip Message Enc [facility] Medical Group Family & Internal Medicine [facility] [address] [place] [address] Es Lazcano NP RE: Question [...] Sex Assigned at Female 08/03/2018 9:44 AM BAKER HEAD Legal Sex Female 7:04 PM CDT Gender Identity Female 08/03/2018 9:44 AM BAKER HEAD Sexual Orientation Straight 08/02/2018 9: 02 AM BAKER HEAD 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 Plan of Treatment Upcoming Encounters Date Type Department Care Team (Late st Contact Info) Description 03/16/2025 11:20 AM CDT Office Visit [facility] Medical Group Family & Internal Medicine [facility] [address] [place] [address] [place] [address] [facility] [address] [place] [address] documented as of this encounter Visit Diagnoses Not on filedocumented in this encounter Additional Health Concerns Infection Onset Date Last Indicated Resolved Time COVID-19 Rule Out 09/11/2020 09/11/2020 09/11/2020 10:00 AM BAKER HEAD COVID-19 Rule Out 05/16/2023 05/16/2023 05/16/2023 10:09 AM BAKER HEAD Influenza - Seasonal 05/16/2023 05/16/2023 023 12:32 AM BAKER HEAD documented as of this encounter Care Teams Farm Marketer Relationship Specialty Start Date End Date Es Lazcano NP PCP - General NURSE PRACTITIONER 08/02/18 07/25/21 Vidhya Baptiste, [facility]- PCP - General Nurse Practitioner Family 07/26/21 [place] [address] [facility] Suite [facility] [place] [address] PCP - General Nurse Practitioner Family 04/23/23 310/31 Gloria Castro, BANQUET COOK- [address] [facility], [address] [place] [address] PCP - General Nurse Practitioner Family 09/30/2401/06 [place] [address] [address] [place] [address] PCP - General INTERNAL MEDICINE 01/17/25 documented as of this encounter
--- OUTSIDE RECORDS SUMMARY | 2025-02-04 09:51 | XMS_ITS | Encounter Summary ---
Author Organization [facility] Address [address] [place] [address] Care Team Providers Care Firer Automatic Stoker Name Role Phone Vidhya Baptiste [facility] Primary Care Provider + Angela Olguin NP Primary Care Provider [phone] Gloria Castro [facility] Primary Care Provider + Freddie Zepeda MD Primary Care Provider [phone] Encounter Details Date Type Department Care Team (Late st Contact Info) Description 01/03/2023 MyChart Message Enc [facility] [address] [place] [address] [place] Provider Air Quality Message Social History Tobacco Use Types Packs/Day Years [...] Sex Assigned at Female 08/03/2018 9:44 AM SCREEN PRINTING SUPERVISOR Legal Sex Female 7:04 PM CDT Gender Identity Female 08/03/2018 9:44 AM SCREEN PRINTING SUPERVISOR Sexual Orientation Straight 08/02/2018 9: 02 AM SCREEN PRINTING SUPERVISOR 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 Plan of Treatment Upcoming Encounters Date Type Department Care Team (Late st Contact Info) Description 03/16/2025 11:20 AM CDT Office Visit [facility] Medical Group Family & Internal Medicine [facility] [address] [place] [address] [place] [address] [facility] [address] [place], [place] [address] documented as of this encounter Visit Diagnoses Not on filedocumented in this encounter Additional Health Concerns Infection Onset Date Last Indicated Resolved Time COVID-19 Rule Out 05/16/2023 05/16/2023 05/16/2023 10:09 AM SCREEN PRINTING SUPERVISOR Influenza - Seasonal 05/16/2023 05/16/2023 023 12:32 AM SCREEN PRINTING SUPERVISOR Assessment Noted Time PHQ-9 Depression Total Score: 3 12/02/19 23 3:04 PM CDT documented as of this encounter Care Teams Firer Automatic Stoker Relationship Specialty Start Date End Date Vidhya Baptiste [facility]- PCP - General Nurse Practitioner Family 07/26/21 [place] [address] [facility] [address] [place] [address] PCP - General Nurse Practitioner Family 04/23/2309/07 Gloria Castro, BITUMASTIC APPLIER- [address] [facility] [address] [place] [address] PCP - General Nurse Practitioner Family 09/30/2401/06 [place] [address] [place] [address] PCP - General INTERNAL MEDICINE 01/17/25 documented as of this encounter
--- OUTSIDE RECORDS SUMMARY | 2025-02-04 09:51 | XMS_ITS | Encounter Summary ---
Author Organization [facility] Address [facility] [place] [address] Care Team Providers Care Slitter Scorer Name Role Phone Vidhya Baptiste [facility] Primary Care Provider + Angela Olguin NP Primary Care Provider [phone] Gloria Castro [facility] Primary Care Provider + Freddie Zepeda MD Primary Care Provider [phone] Encounter Details Date Type Department Care Team (Late st Contact Info) Description 07/30/2021 MyCAddThist Message Enc [facility] Medical Group Family & Internal Medicine [facility] [address] [place] [address] Vidhya Baptiste [facility] [address] [place] [address] Anxiety and depression cont. Social History Tobacco Use Types Packs/Day Years [...] Sex Assigned at Female 08/03/2018 9:44 AM NUCLEAR WASTE MANAGEMENT ENGINEER Legal Sex Female 7:04 PM CDT Gender Identity Female 08/03/2018 9:44 AM NUCLEAR WASTE MANAGEMENT ENGINEER Sexual Orientation Straight 08/02/2018 9: 02 AM NUCLEAR WASTE MANAGEMENT ENGINEER 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 No / Unsure 07/26/2021 6:54 AM NUCLEAR WASTE MANAGEMENT ENGINEER documented as of this encounter Plan of Treatment Upcoming Encounters Date Type Department Care Team (Late st Contact Info) Description 03/16/2025 11:20 AM CDT Office Visit [facility] Medical Group Family & Internal Medicine [facility] [address] [place] [address] [place] [address] [address] documented as of this encounter Visit Diagnoses Not on filedocumented in this encounter Additional Health Concerns Infection Onset Date Last Indicated Resolved Time COVID-19 Rule Out 05/16/2023 05/16/2023 05/16/2023 10:09 AM NUCLEAR WASTE MANAGEMENT ENGINEER Influenza - Seasonal 05/16/2023 05/16/2023 023 12:32 AM NUCLEAR WASTE MANAGEMENT ENGINEER Assessment Noted Time PHQ-9 Depression Total Score: 9 07/30/19 22 12:32 PM NUCLEAR WASTE MANAGEMENT ENGINEER documented as of this encounter Care Teams Slitter Scorer Relationship Specialty Start Date End Date Vidhya Baptiste FNP-BC PCP - General Nurse Practitioner Family 07/26/21 [place] [address] [facility] [address] [place] [address] PCP - General Nurse Practitioner Family 04/23/2309/07 Gloria Castro [facility]- [address] [address], [address] [place] [address] PCP - General Nurse Practitioner Family 09/30/2401/06 [place] [address] [address] [place] [address] PCP - General INTERNAL MEDICINE 01/17/25 documented as of this encounter
--- OUTSIDE RECORDS SUMMARY | 2025-02-04 09:51 | XMS_ITS | Encounter Summary ---
Author Organization [facility] Address [facility]ending [facility] to [facility] [place] [address] Care Team Providers Care Teacher Public Health Name Role Phone Es Lazcano CLINICAL SPECIALIST VASCULAR Primary Care Provider Unav ailable Vidhya Baptiste [facility] Primary Care Provider + Angela Olguin CLINICAL SPECIALIST VASCULAR Primary Care Provider [phone] Gloria Castro [facility] Primary Care Provider + rFeddie Zepeda MD Primary Care Provider [phone] Encounter Details Date Type Department Care Team (Late st Contact Info) Description 07/29/2020 MyCExegyt Message Enc [facility] Medical Group Family & Internal Medicine [facility] [address] [place] [address] Es Lazcano NP RE: Other [...] 07/10 PHQ-2 Answer Date Recorded PHQ-2 Score 0 10/29/2019 Education Answer Date Recorded What is the highest level of school you have completed or the highest degree you have received? 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 Plan of Treatment Upcoming Encounters Date Type Department Care Team (Late st Contact Info) Description 03/16/2025 11:20 AM CDT Office Visit [facility] Medical Group Family & Internal Medicine [facility] [address] [place] [address] [place] [address] [address] documented as of this encounter Visit Diagnoses Not on filedocumented in this encounter Additional Health Concerns Infection Onset Date Last Indicated Resolved Time COVID-19 Rule Out 09/11/2020 09/11/2020 09/11/2020 10:00 AM PURIFICATION DIRECTOR COVID-19 Rule Out 05/16/2023 05/16/2023 05/16/2023 10:09 AM PURIFICATION DIRECTOR Influenza - Seasonal 05/16/2023 05/16/2023 023 12:32 AM PURIFICATION DIRECTOR documented as of this encounter Care Teams Teacher Public Health Relationship Specialty Start Date End Date Es Lazcano NP PCP - General NURSE PRACTITIONER 08/02/18 07/25/21 Vidhya Baptiste [facility]- PCP - General Nurse Practitioner Family 07/26/21 [place] [address] [facility] Suite [facility] [place] [address] PCP - General Nurse Practitioner Family 04/23/23 310/31 Gloria Castro, PAYROLL SPECIALIST- [address] [address], [address] [place] [address] PCP - General Nurse Practitioner Family 09/30/2401/06 [place] [address] [address] [place] [address] PCP - General INTERNAL MEDICINE 01/17/25 documented as of this encounter
--- OUTSIDE RECORDS SUMMARY | 2025-02-04 09:51 | XMS_ITS | Encounter Summary ---
Author Organization [facility] Address [facility] [place] [address] Care Team Providers Care Anesthesiologist Assistant Name Role Phone Vidhya Baptiste [facility] Primary Care Provider + Angela Olguin NP Primary Care Provider [phone] Gloria Castro [facility] Primary Care Provider + Freddie Zepeda MD Primary Care Provider [phone] Encounter Details Date Type Department Care Team (Late st Contact Info) Description 10/21/2021 MyCTherapydiat Message Enc [facility] Medical Group Family & Internal Medicine [facility] [address] [place] [address] Vidhya Baptiste [facility] [address] [place] [id number] Eugenia Social History Tobacco Use Types Packs/Day [...] Sex Assigned at Female 08/03/2018 9:44 AM EXPLOITATION ANALYST Legal Sex Female 7:04 PM CDT Gender Identity Female 08/03/2018 9:44 AM EXPLOITATION ANALYST Sexual Orientation Straight 08/02/2018 9: 02 AM EXPLOITATION ANALYST 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 Unable to assess 09/30/2021 11:44 AM CDT documented as of this encounter Progress Notes * Opal Richardson RN - 10/21/2021 10:19 AM CDT Printed [place] paperwork and placed in folder for review. documented in this encounter Plan of Treatment Upcoming Encounters Date Type Department Care Team (Late st Contact Info) Description 03/16/2025 11:20 AM CDT Office Visit [facility] Medical Group Family & Internal Medicine [address] [address] Freddie Zepeda MD [address] [place] [address] documented as of this encounter Visit Diagnoses Not on filedocumented in this encounter Additional Health Concerns Infection Onset Date Last Indicated Resolved Time COVID-19 Rule Out 05/16/2023 05/16/2023 05/16/2023 10:09 AM EXPLOITATION ANALYST Influenza - Seasonal 05/16/2023 05/16/2023 023 12:32 AM EXPLOITATION ANALYST Assessment Noted Time PHQ-9 Depression Total Score: 9 07/30/19 22 12:32 PM EXPLOITATION ANALYST documented as of this encounter Care Teams Anesthesiologist Assistant Relationship Specialty Start Date End Date Vidhya Baptiste FNP-JONE PCP - General Nurse Practitioner Family 07/26/21 [place], [place] [address] [address] [place] [address] PCP - General Nurse Practitioner Family 04/23/2309/07 Gloria Castro, [facility] [address] [address], [address] [place] [address] PCP - General Nurse Practitioner Family 09/30/2401/06 [place] [address] [address] [place] [address] PCP - General INTERNAL MEDICINE 01/17/25 documented as of this encounter
--- OUTSIDE RECORDS SUMMARY | 2025-02-04 09:51 | XMS_ITS | Clinical Summary ---
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 Role Phone Freddie Zepeda MD Primary Care Provider [phone] Allergies Active Allergy Reactions Criticality Noted Date Comments Albuterol Nausea Only Low 03/12/2018 Albuterol in nebulizer causes nausea, albuterol in inhaler ok Ciprofloxacin Hives Low 05/22/2003 Clindamycin Hcl Hives Low 05/22/2003 Ipratropium Nausea Only Low 03/12/2018 Cephalexin Hives Low 05/22/2003 Penicillins Hives Low 05/22/2003 Medications busPIRone (BUSPAR) 30 MG tabletIndications :MANISHA (generalized anxiety disorder),Moderat e episode of recurrent major depressive disorder (CMS/HCC) Take 1 tablet (30 mg total) by mouth 2 (two) times a day. 180 tablet 02/10/20 22 Active ARIPiprazole (ABILIFY) 5 MG tablet Take 1 tablet (5 mg total) by mouth 2 (two) times a day. 05/16/20 22 Active fish oil (OMEGA-3 FATTY ACID) 1000 MG Cap capsuleIndication s:Mixed hyperlipidemia Take 1 capsule (1,000 mg total) by mouth daily. 60 capsule 2 07/05/20 22 Active Fenofibrate 134 MG CapIndications:Mi xed hyperlipidemia Take 1 capsule by mouth daily. 90 capsule 3 01/14/20 24 Active hydroCHLOROthiazi de (HYDRODIURIL) 25 MG tabletIndications :Essential hypertension Take 1 tablet (25 mg total) by mouth daily. 90 tablet 3 01/14/20 24 Active montelukast (SINGULAIR) 10 MG tabletIndications :Mild intermittent asthma without complication (HHS/HCC) Take 1 tablet (10 mg total) by mouth nightly at bedtime. at bedtime 90 tablet 3 01/14/20 24 Active valACYclovir (VALTREX) 500 MG tabletIndications :Herpes simplex Take 1 tablet (500 mg total) by mouth daily. 90 tablet 3 01/14/20 24 Active cyclobenzaprine (FLEXERIL) 5 MG tablet Take 1 tablet (5 mg total) by mouth 3 (three) times daily as needed for Muscle Spasms. Active buPROPion SR (WELLBUTRIN SR) 100 MG 12 hr tablet Take 1 tablet (100 mg total) by mouth 2 (two) times daily. 09/18/19 25 Active ALPRAZolam (XANAX) 0.25 MG tablet Take 1 tablet (0.25 mg total) by mouth 2 (two) times daily. 09/30/19 25 Active mirtazapine (REMERON) 30 MG tablet Take 1 tablet (30 mg total) by mouth nightly at bedtime. 09/20/19 25 Active triamcinolone (KENALOG) 0.1 % creamIndications: Psoriasis Apply topically 2 (two) times daily. 80 g 1 10/25/19 25 Active vitamin D3 10 mcg tabletIndications :Mixed hyperlipidemia Take 1 tablet (10 mcg total) by mouth daily. May take 400-800 u daily 10/29/19 25 Active rosuvastatin (CRESTOR) 10 MG tabletIndications :Mixed hyperlipidemia Take 1 tablet (10 mg total) by mouth nightly at bedtime. 30 tablet 10/29/19 25 Active venlafaxine XR (EFFEXOR-XR) 150 MG 24 hr capsule Take 1 capsule (150 mg total) by mouth daily. 06/17/20 24 Active empagliflozin (JARDIANCE) 25 MG tabletIndications :Type 2 diabetes mellitus with hyperglycemia, without long-term current use of insulin (CMS/HCC HHS/HCC) Take 1 tablet (25 mg total) by mouth daily. 30 tablet 2 12/05/19 25 Active gabapentin (NEURONTIN) 100 MG capsuleIndication s:Chronic bilateral low back pain with bilateral sciatica Take 1 capsule (100 mg total) by mouth 3 (three) times daily. 90 capsule 2 12/05/19 25 Active nystatin (MYCOSTATIN) powderIndications :Candidal intertrigo Apply topically 3 (three) times daily. 60 g 3 12/13/19 25 Active albuterol sulfate HFA 108 (90 Base) MCG/ACT inhalerIndication s:Mild intermittent asthma without complication (HHS/HCC) INHALE 2 PUFFS BY MOUTH EVERY 6 HOURS NEEDED FOR WHEEZING FOR SHORTNESS OF BREATH 18 g 01/06/20 25 Active diclofenac EC (VOLTAREN) 75 MG tabletIndications :Acute bilateral low back pain with bilateral sciatica Take 1 tablet by mouth twice daily 60 tablet 01/06/20 25 Active atenolol (TENORMIN) 50 MG tabletIndications :Primary hypertension Take 2 tablets by mouth once daily 180 tablet 02/03/20 25 Active OLANZapine (ZYPREXA) 5 MG tablet Take 1 tablet (5 mg total) by mouth nightly at bedtime. 12/26/19 25 Active atenolol (TENORMIN) 50 MG tabletIndications :Essential hypertension Take 2 tablets (100 mg total) by mouth daily. 180 tablet 3 01/14/20 24 025 Discontinued Active Problems Problem Noted Date Diagnosed Date Psoriasis 12/04/2024 Acute bilateral low back pain with bilateral sci atica 04/16/2024 Obesity (BMI 30-39.9) 01/15/2024 Mild intermittent asthma without complication (H HS/HCC) 01/15/2024 Type 2 diabetes mellitus wit h hyperglycemia, without long-term current use of insulin ([facility]/HCC HHS/HCC) 01/15/2024 Morbid obesity with BMI of 40.0-44.9, adult 11/07 Moderate episode of recurrent major depressive d isorder 07/30/2021 MANISHA (generalized anxiety disorder) 07/30/2021 Bilateral carpal tunnel syndrome 07/30/2021 Essential hypertension 03/12/2018 Herpes simplex 03/12/2018 Mixed hyperlipidemia 03/12/2018 Nystagmus, congenital 03/12/2018 Resolved Problems Problem Noted Date Diagnosed Date Resolved Date Anxiety and depression 03/12/201807/30 Menorrhagia with irregular cycle 03/12/2018 02/14/2021 Tendinitis, de Quervain's 03/12/2018 Wears glasses 03/12/2018 03/19/2020 Encounters Date Type Department Care Team Description 02/03/2025 10:25 AM CDT - 02/03/2025 1:10 PM CDT Emergency [facility] Emergency Room [address] [place] [address] Clarisa Lang MD Shortness Of Breath ; Chest Pain; Edema Discharge Disposition: Home or Self Care (Routine Discharge) 02/03/2025 10:00 AM CDT Office Visit [facility] Family & Internal [address] [phone] Sam Ortiz PA Breathing Problem (Acute having trouble breathing and swollen) 02/03/2025 Travel 01/23/2025 Orders Only [facility] Internal [address] [phone] Freddie Zepeda MD 01/07/2025 Telephone [facility] Internal [address] [phone] Mouna Castro FNP-BC Referral 12/18/2024 Results Follow-Up [facility] [address] [place] [address] Mouna Castro FNP-JONE Cytopath Cerv/Vag Thin Layer 12/12/2024 4:45 PM CDT - 12/12/2024 11:59 PM CDT Hospital Encounter [facility] [address] [place] [address] Mouna Castro FNP-JONE Discharge Disposition: Home or Self Care (Routine Discharge) 12/12/2024 2:20 PM CDT Office Visit [facility] & Internal [address] [phone] Mouna Castro FNP-BC 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 Exam (Woman's health eval pap) 12/12/2024 6:54 AM CDT - 12/12/2024 4:44 PM CDT Hospital Encounter [facility] [address] [place] [address] Mouna Castro FNP-BC Discharge Disposition: Home or Self Care (Routine Discharge) 12/12/2024 Travel 12/04/2024 8:20 AM CDT Office Visit [facility] Family & Internal Medicine [address] [phone] Mouna Castro FNP-BC Follow Up (Increased back pain ) 12/04/2024 Travel from Last 3 Months Immunizations Immunization Administration Dates Next Due Flublok (Quadrivalent) 04/02/2021,03/09/2020 Fluzone 6 Months+ Quad (0.5 mL Prefilled Syringe) 06/14/2022 Influenza (Generic) 04/02/2021, 0,03/13/2018,2014,03/21/2013 PFIZER COVID-19 (ORIGINAL FORMULATION, PURPLE CAP) mRNA, LNP-S, PF, 30 MCG/0.3 ML DOSE 10/21/2020,09/30/2020 Shingrix 03/09/2020,06/19/2018,03/13/2018 Tdap (Generic) 01/16/2024 Family History Medical History Relation Comments Asthma Daughter Emphysema Father Asthma Mother Emphysema Mother Heart Mother Heart Disease Mother Hypertension Mother Miscarriages / Stillbirths Mother Vision loss Paternal Grandmother Relation Status Comments Daughter Alive Father Mother Other (Age 60) she had a infe ction around her heart and 2 strokes and passed from the second Paternal Grandmother Alive Social History Tobacco Use Types Packs/Day Years Used Date Smoking Tobacco: Former Cigarettes 0.3 5 0 10/15/1987 - 10/14/1992 Smokeless Tobacco: Never Tobacco Cessation:Counseling Given: No Comments:former smoker Alcohol Use Standard Drinks/Week Comments [...] Sex Assigned at Female 08/03/2018 9:44 AM 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 SPRAY PAINTER Legal Sex Female 7:04 PM CDT Gender Identity Female 08/03/2018 9:44 AM INDUSTRIAL SPRAY PAINTER Sexual Orientation Straight 08/02/2018 9: 02 AM INDUSTRIAL SPRAY PAINTER 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 Not on file Not on file Not on file Last Filed Vital Signs Vital Sign Reading [...] Mass Index 47.29 02/03/2025 10:30 AM CDT Plan of Treatment Upcoming Encounters Date Type Department Care Team (Late st Contact Info) Description 03/16/2025 11:20 AM CDT Office Visit [facility] Family & Internal Medicine [address] [phone] [place] [id number] [place] [address] [place] [address] Health Maintenance Due Date Last Done Comments Kidney Health Evaluation 1965 Diabetes: Retinopathy Eye Exam 1983 Pneumococcal Vaccine: 50+ Years (1 of 2 - PCV) 1984 Mammogram Screening 03/13/2021 03/13/2019 Cervical Cancer Screening Pap with HPV Testing (Age 30 to 64) Every 5 Years 09/03/2023 09/03/2018 Colorectal Cancer Screening Colonoscopy (10 Years) 06/21/2024 06/21/2019, 06/20/2019 COVID-19 Vaccine ( season) 2025 10/21/2020, 09/30/2020 Postponed from 03/09/2024 (Patient Refused) Hemoglobin A1C 04/25/2025 10/24/2024, 07/0 02/2024, 07/16/2023, Additional history exists Lipid Panel 10/24/2025 10/24/2024, 07/0 02/2024, 06/14/2022, Additional history exists Annual Physical 12/12/2025 12/12/2024, 12/01/2022 Cervical Cancer Screening Pap Smear (Age 30 to 64) Every 3 Years 12/13/2027 12/12/2024, 12/12/2024 Cervical Cancer Screening with HPV 12/13/2027 DTaP, Tdap and Td Vaccines (2 - Td or Tdap) 01/15/2034 01/16/2024 Hepatitis C Completed 04/18/2019 Zoster Vaccines Completed 03/09/2020, 06/08, 03/13/2018 PHQ-2 (Physician Joseph) Completed 12/04/2024 Meningococcal B Vaccine Aged Out No l onger eligible based on patient's age to complete this topic Meningococcal Vaccine Aged Out No adis endy eligible based on patient's age to complete this topic RSV Immunizations Under 20 Months Aged Out No longer eligible based on patient's age to complete this topic Procedures Procedure Name Priority Date/Time Associated Diagnosis Comments CTA CHEST PE PROTOCOL STAT 02/03/2025 12:03 PM CDT XR CHEST PORTABLE STAT 02/03/2025 11:02 AM CDT ECG 12-LEAD Routine 02/03/2025 10:35 AM CDT Procedure Note - 02/03/2025 10:35 AM CDTThis note is in progress. 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: : 1965 Requested By: CLARISA LANG Order Number: [id number] Reading MD: Measurements Intervals [place] Rate: 75 P: -11 WA: 160 QRS: -10 QRSD: 86 T: 40 QT: 379 QTc: 426 Interpretive Statements SINUS RHYTHM Compared to ECG 09/11/2020 09:30:01 No significant changes D-DIMER, QUANTITATIVE STAT 02/03/2025 10:35 AM CDT PRO-BRAIN NATRIURETIC PEPTIDE STAT 02/03/2025 10:35 AM CDT MAGNESIUM STAT 02/03/2025 10:35 AM CDT TROPONIN, QUANT STAT 02/03/2025 10:35 AM CDT LIPASE STAT 02/03/2025 10:35 AM CDT PROTHROMBIN TIME, VENOUS STAT 02/03/2025 10:35 AM CDT COMPREHENSIVE METABOLIC PANEL STAT 02/03/2025 10:35 AM CDT CBC W/DIFF AUTOMATED STAT 02/03/2025 10:35 AM CDT CYTOPATH CERV/VAG THIN LAYER Routine 12/12/2024 12:00 AM CDT LIPID PANEL Routine 10/24/2024 10:15 AM CDT Mixed hyperlipidemia HEMOGLOBIN, GLYCOSYLATED Routine 10/24/2024 10:15 AM CDT Type 2 diabetes mellitus with hyperglycemia, without long-term current use of insulin (CMS/HCC HHS/HCC) COLONOSCOPY/EGD GENERIC (SCAN ORDER) Routine 06/21/2019 HEPATITIS PANEL,ACUTE Routine 04/18/2019 10:07 AM CDT Abdominal pain, right upper quadrant Hepatomegaly Nonspecific elevation of levels of transaminase or lactic acid dehydrogenase (LDH) MG SCREENING W WILLIE JEFFERSON DIGI Routine 03/13/2019 8:22 AM CDT Screening for breast cancer HPV MRNA E6/E7 Routine 09/03/2018 9:23 PM INDUSTRIAL SPRAY PAINTER from Last 3 Months or Most Recently Relevant to Health Maintenance Results * CTA CHEST PE PROTOCOL (02/03/2025 [...] 12:15 PM Narrative 02/03/2025 12:23 PM CDT [facility] [address] [address] [place] [place] [phone] PROCEDURE: CTA CHEST PE PROTOCOL. HISTORY: Evaluate [...] Note Rose Marie Buenrostro MD - 02/03/2025 [facility] [address] [address] PROCEDURE: CTA CHEST PE PROTOCOL. HISTORY: Evaluate [...] Rose Marie Buenrostro MD, 02/03/2025 12:15 PM Clarisa Lang MD CT Final Result * [...] 11:04 AM Narrative 02/03/2025 11:05 AM CDT [facility] [address] [place] [address] Examination: Chest Radiograph, 1 view Exam Date/Time: [...] Procedure Note Dante Muhammad MD - 02/03/2025 [facility] [address] [place] [address] Examination: Chest Radiograph, 1 view Exam Date/Time: [...] Lang MD GENERAL IMAGING Final Result * PRO-BRAIN NATRIURETIC PEPTIDE (02/03/2025 10:35 AM CDT) PRO-B TYPE NATRIURETIC PEPTIDE 34 <125 PG/ML 02/03/2025 11:07 AM CDT [facility] Comment: CUT POINTS ESTABLISHED BY [...] ACUTE CHF. 02/03/2025 10:3 5 AM CDT Clarisa Lang MD LABORATORY Final Result Performing Organization Address [facility] Co de Phone Number [facility] [address] [place] [address], [place] [phone] * PROTIME/INR, VENOUS (02/03/2025 10:35 AM CDT) PROTIME 11.4 9.1 - 12.4 SEC 02/03/2025 10:55 AM CDT [facility] INR 1.0 02/03/2025 10:55 AM CDT [facility] Comment: Recommend INR ranges for Oral Anticoagulant Therapy: Mechanical Cardiac Values 2.5-3.5 All others indication 2.0-3.0 02/03/2025 10:3 5 AM CDT us Clarisa Lang MD LABORATORY Final Result Performing Organization Address [facility] Co de Phone Number [facility] [address] [place] [address], [place] [phone] * (ABNORMAL) COMPREHENSIVE METABOLIC PANEL (02/03/2025 10:35 AM CDT) GLUCOSE 144(H) 70 - 99 MG/DL 02/03/2025 11:07 AM CDT [facility] BUN 14 7 - 18 MG/DL 02/03/2025 11:07 AM CDT [facility] CREATININE S/P/B 0.61 0.55 - 1.02 MG/DL 02/03/2025 11:07 AM CDT [facility] SODIUM S/P/B 139 136 - 145 MMOL/L 02/03/2025 11:07 AM [facility] POTASSIUM S/P/B 4.3 3.5 - 5.1 MMOL/L 02/03/2025 11:07 AM [facility] CHLORIDE S/P/B 103 100 - 108 MMOL/L 02/03/2025 11:07 AM [facility] CO2 31.1 21 - 32 MMOL/L 02/03/2025 11:07 AM [facility] CALCIUM S/P/B 8.6 8.5 - 10.1 MG/DL 02/03/2025 11:07 AM [facility] BILIRUBIN TOTAL S/P/B 0.2 0.2 - 1.2 MG/DL 02/03/2025 11:07 AM [facility] TOTAL PROTEIN S/P/B 7.3 6.4 - 8.2 G/DL 02/03/2025 11:07 AM [facility] ALBUMIN S/P/B 3.4 3.4 - 5.0 G/DL 02/03/2025 11:07 AM [facility] AST 37 15 - 37 U/L 02/03/2025 11:07 AM [facility] ALT 40 14 - 55 U/L 02/03/2025 11:07 AM [facility] ALKALINE PHOSPHATASE S/P/B 163(H) 50 - 136 U/L 02/03/2025 11:07 AM [facility] ANION GAP 4.9(L) 5 - 15 MMOL/L 02/03/2025 11:07 AM [facility] BUN CREATININE RATIO 23.0 6 - 26 02/03/2025 11:07 AM [facility] A/G RATIO 0.9(L) 1.0 - 2.0 RATIO 02/03/2025 11:07 AM CDT [facility] GFR ESTIMATE >90 >90 ML/MIN/1.7 3 M2 02/03/2025 11:07 AM CDT [facility] Comment: NOTE: eGFR is not [...] MD LABORATORY Final Result Performing Organization Address [facility] Co de Phone Number [facility] [address] [place] [address], [place] [phone] * (ABNORMAL) D-DIMER, QUANTITATIVE (02/03/2025 10:35 AM CDT) D-DIMER 627(H) 0 - 500 ng{FEU}/mL 02/03/2025 10:59 AM CDT [facility] Comment: D-Dimer values less than [...] MD LABORATORY Final Result Performing Organization Address [facility] Co de Phone Number [facility] [address] [place] [address], [place] [phone] * (ABNORMAL) CBC W/DIFF AUTOMATED (02/03/2025 10:35 AM CDT) [facility] WBC 7.65 4.4 - 11.0 x10'3/uL 02/03/2025 10:47 AM CDT [facility] RBC 5.01 4.50 - 5.10 x10'6/uL 02/03/2025 10:47 AM CDT [facility] HGB 13.7 12.3 - 15.3 G/DL 02/03/2025 10:47 AM CDT [facility] HCT 43.2 35.9 - 44.6 % 02/03/2025 10:47 AM CDT [facility] MCV 86.2 80.0 - 96.0 FL 02/03/2025 10:47 AM CDT [facility] MCH 27.3 25.3 - 30.9 PG 02/03/2025 10:47 AM CDT [facility] MCHC 31.7 31.0 - 34.1 G/DL 02/03/2025 10:47 AM CDT [facility] RDW 13.9 12.4 - 15.1 % 02/03/2025 10:47 AM T [facility] PLT 258 151 - 353 x10'3/uL 02/03/2025 10:47 AM T [facility] MPV 9.3(L) 9.6 - 12.0 FL 02/03/2025 10:47 AM T [facility] RBC MORPHOLOGY NORMAL 02/03/2025 10:47 AM CDT [facility] PLT MORPH. NORMAL 02/03/2025 10:47 AM T [facility] WBC MORPHOLOGY NORMAL 02/03/2025 10:47 AM CDT [facility] LYMPHOCYTES % 25.6 15.8 - 45.0 % 02/03/2025 10:47 AM CDT [facility] NEUTROPHILS % 61.1 42.1 - 71.9 % 02/03/2025 10:47 AM CDT [facility] MONOCYTES % 7.8 5.7 - 12.5 % 02/03/2025 10:47 AM CDT [facility] EOSINOPHILS 3.7 0.0 - 5.6 % 02/03/2025 10:47 AM CDT [facility] BASOPHILS 0.9 0.0 - 1.3 % 02/03/2025 10:47 AM CDT [facility] ABS. NEUTROPHILS 4.67 1.40 - 6.00 x10'3/uL 02/03/2025 10:47 AM CDT [facility] IMMATURE GRANS % 0.9(H) 0.0 - 0.5 % 02/03/2025 10:47 AM CDT [facility] ABS. LYMPHOCYTES 1.96 0.80 - 4.70 x10'3/uL 02/03/2025 10:47 AM CDT [facility] 02/03/2025 10:3 5 AM CDT us Clarisa Lang MD LABORATORY Final Result [facility] [address] [place] [phone], * TROPONIN, QUANT (02/03/2025 10:35 AM CDT) TROPONIN I HIGH SENSITIVITY 5 0 - 50 ng/L 02/03/2025 11:06 AM CDT [facility] Comment: HIGH DOSES OF BIOTIN, TROPONIN-SPECIFIC AUTOANTIBODIES, AND ANTIBODY THERAPY CONTAINING HAMA MAY INTERFERE WITH THIS TEST RESULT. CORRELATION TO CLINICAL HISTORY AND PRESENTATION RECOMMENDED. 02/03/2025 10:3 5 AM CDT us Clarisa Lang MD LABORATORY Final Result [facility] [address] [place] [address], [place] [phone] * MAGNESIUM (02/03/2025 10:35 AM CDT) MAGNESIUM 2.0 1.8 - 2.4 MG/DL 02/03/2025 11:07 AM CDT [facility] 02/03/2025 10:3 5 AM CDT us Clarisa Lang MD LABORATORY Final Result Performing Organization Address [facility] Co de Phone Number [facility] [address] [place] [address], [place] [phone] * LIPASE (02/03/2025 10:35 AM CDT) LIPASE 17 16 - 77 UNITS/L 02/03/2025 11:07 AM CDT [facility] 02/03/2025 10:3 5 AM CDT us Clarisa Lang MD LABORATORY Final Result Performing Organization Address City/[facility]/ZIP Co de Phone Number [facility] [address] [place] [address], [place] [phone] * Cytopath Cerv/Vag Thin Layer (12/12/2024 12:00 AM CDT) THIN PREP PAP [facility] [address] [place] [address] Department of Pathology Pathology Report CERVICAL/VAGINAL PAP SMEAR REPORT Name: COATESLUTHER Age: 11 1965 (Age: 59) Location: [facility] Sex: F Collected Date: 12/12/2024 Hospital #: [id number] Date Received: 12/16/2024 Date Reported: 12/17/2024 Provider: MOUNA HALEY INTERPRETATION CERVICAL/ENDOCERVI CHAKA: SATISFACTORY FOR EVALUATION. ENDOCERVICAL/TRANS FORMATION ZONE COMPONENT ABSENT. NEGATIVE FOR INTRAEPITHELIAL LESION OR MALIGNANCY. Electronically Signed Out By VERONICA Sow (ASCP) CLINICAL HISTORY Z12.4 SCREENING FOR CERVICAL CANCER SCREENING PAP ThinPrep Pap Test with reflex HR HPV testing for ASCUS/LSIL diagnosis for post-menopausal patient. Date of Last Menstrual Period: 09/17/2018 Menstrual Status: Post-Menopausal SPECIMEN SUBMITTED CERVICAL/ENDOCERVI CHAKA Specimen Received:1 Thin Prep Vial, Image Assisted Pap (SMD) Please note: The Pap smear is not a diagnostic test. It is a screening test. Negative results on combined screening (Pap test and HPV-DNA) have a high negative predictive value (99.1-100 percent) for cervical cancer. The pap test is not effective in detecting cervical adenocarcinoma. [facility] 12/12/2024 12/16/2024 7:4 7 AM CDT Comment:CERVICAL/ENDOCERVICA L us Mouna Castro [facility] PATHOLOGY/CYTOLOGY ORDER ALBA Final Result [facility] [address] [place] [address], * (ABNORMAL) HEMOGLOBIN, GLYCOSYLATED (10/24/2024 10:15 AM CDT) HGB A1C 6.1(H) <5.7 % 10/24/2024 1:10 PM CDT [facility] Comment: INCREASED RISK OF DIABETES <5.7% NON-DIABETES 5.7-6.4% INCREASED RISK FOR FUTURE DIABETES > OR = 6.5 CONSISTENT WITH DIABETES STANDARDS OF MEDICAL CARE IN DIABETES-2010 DIABETES CARE, 33(SUPP 1): S1-S61,2009 ESTIMATED AVG GLUCOSE 128 mg/dL 10/24/2024 1:10 PM CDT [facility] 10/24/2024 10:1 5 AM CDT Mouna Chioma Castro GRAVEL SCREENER- LABORATORY Final Re sult [facility] [address] [place] [id number], * (ABNORMAL) LIPID PANEL (10/24/2024 10:15 AM CDT) CHOLESTEROL 182 <200.0 MG/DL 10/24/2024 1:15 PM CDT [facility] TRIGLYCERIDES 214(H) <150 MG/DL 10/24/2024 1:15 PM CDT [facility] HDL 40(L) >40.0 MG/DL 10/24/2024 1:15 PM T [facility] LDL (CALCULATED) 99 <100 MG/DL 10/24/2024 1:15 PM CDT [facility] NON HDL CHOLESTEROL 142(H) <130 MG/DL 10/24/2024 1:15 PM T [facility] CHOL/HDL RATIO 4.6(H) 0.0 - 4.5 10/24/2024 1:15 PM T [facility] VLDL CALCULATION 43 5 - 55 MG/DL 10/24/2024 1:15 PM T [facility] LIPID INTERPRETATION 10/24/2024 1:15 PM T [facility] Comment: [facility] CONCENSUS REPORT RECOMMENDATIONS: ADULT CHILD LOW RISK: CHOLESTEROL <200 <170 TRIGLYCERIDE <150 --- HDL >=60 --- LDL <100 <110 BORDERLINE: CHOLESTEROL 200-239 170-199 TRIGLYCERIDE 150-199 --- HDL 40-59 --- LDL 100-159 110-129 HIGH RISK: CHOLESTEROL >=240 >=200 TRIGLYCERIDE >=200 --- HDL <40 --- LDL >=160 >=130 10/24/2024 10:1 5 AM CDT Mouna Chioma Castro GRAVEL SCREENER-BC LABORATORY Final Re sult [facility] [address] [place] [address], [place] [phone] * COLONOSCOPY/EGD (06/21/2019) Documents Scanned SCANNING Final Result * HEPATITIS PANEL,ACUTE (04/18/2019 10:07 AM CDT) HEPATITIS B SURFACE AG NON-REACTI VE NON-REACTI VE 04/18/2019 12:25 PM CDT [facility] HEP B CORE IGM NON-REACTI VE NON-REACTI VE 04/18/2019 12:25 PM CDT [facility] HAV IGM NON-REACTI VE NON-REACTI VE 04/18/2019 12:25 PM CDT [facility] HEPATITIS C AB NON-REACTI VE NON-REACTI VE 04/18/2019 12:25 PM CDT [facility] 04/18/2019 10:0 7 AM CDT Linda Matute NP LABORATORY Final Result [facility] [address], [place] [address], [place] [phone] * MG SCREENING W WILLIE JEFFERSON DIGI (03/13/2019 8:22 AM CDT) Anatomical Region Laterality Modality Breast Bilateral Mammography 03/20/2019 9:5 6 AM CDT Impressions 03/20/2019 10:25 AM CDT IMPRESSION: 1. No mammographic evidence of malignancy. Recommend annual mammogram. 2. BI-RADS Category 2 - benign findings. 3. TISSUE TYPE: Category B - There are areas of scattered fibroglandular density. MQSA BI-RADS Categories: Category 0 - needs additional imaging evaluation. Category 1 - negative. Category 2 - benign findings. Category 3 - probably benign findings, but short interval follow-up is recommended. Category 4 - suspicious abnormality and biopsy should be considered though the lesion may well be benign. Category 5 - highly suggestive of malignancy and appropriate action should be taken. A) A negative report should not delay a biopsy if a dominant or clinically suspicious mass is present. B) Adenosis and dense breasts may obscure an underlying neoplasm. C) Study interpreted with computer aided detection. Interpreted By: Rubio Mora, 03/20/2019 9:56 AM Narrative 03/20/2019 10:25 AM CDT IMAGING STUDIES: MG SCREENING W WILLIE JEFFERSON DIGI DATE: 03/13/2019 8:05 AM HISTORY: screening for breast canc 53-year-old female for screening study. Bilateral breast reduction in 1993. COMPARISON: Digitized film screen mammograms 03/30/2010 and 03/25/2009 at this facility. Interpretation was delayed in order to retrieve the hard copy film images. DISCUSSION: Bilateral digital screening mammogram with CAD. Standard mammographic views with additional right MLO view with nipple in profile. 2-D imaging and 3-D tomography. Mild scattered fibroglandular tissue. Bilateral benign calcifications, more prominent on the right than left as before. Numerous partially calcified oil cysts within the right breast that are new since 2009. Oil cyst lesions can develop secondary to fatty necrosis in patients who have had trauma or surgery such as breast reduction. Punctate benign-appearing calcifications in the right breast, some of which were present in 2009 and some of which have developed in the 9 year interval. No mammographically suspicious mass, microcalcification, or architectural distortion. us Es Lazcano ANESTHESIOLOGY CRNA MAMMO Final Resul t * HPV MRNA E6/E7 (09/03/2018 9:23 PM INDUSTRIAL SPRAY PAINTER) HPV MRNA E6/E7 Not Detected NOT DETECTED 09/06/2018 8:12 AM INDUSTRIAL SPRAY PAINTER [employer] STEFANIA OTTO Comment: This test was performed using the APTIMA(R) HPV Assay([employer]This assay detects E6/E7 viral messenger RNA (mRNA)from 14 high-risk HPV types (16,18,31,33,35,39,45,51,52,56,58,59,66,68).For additional information please refer to:http://education.Expensify/faq/OMQ580d9(This link is being provided for informational/educational purposes only.)The analytical performance characteristics of thisassay have been determined by [place]. The modificationshave not been cleared or approved by the FDA. Thisassay has been validated pursuant to the CLIAregulations and is used for clinical purposes.Test Performed by [facility],[address] [place] [id number] Sheridan M.D., Ph.D., Director of [phone], CLIA [id number] FLUID SPECIMEN / Unknown 09/03/2018 9:23 PM INDUSTRIAL SPRAY PAINTER 09/03/2018 9:23 PM INDUSTRIAL SPRAY PAINTER us Generic Conversion Md URENA PATHOLOGY/CYTOLOGY ARTHUR MARKS Final Result [employer] [address] , from Last 3 Months or Most Recently Relevant to Health Maintenance Insurance [place] Care Teams Taxi Cab Driver Relationship Specialty Start [place] [id number] [address] PCP - General INTERNAL MEDICINE 01/17/25
--- OUTSIDE RECORDS SUMMARY | 2025-02-04 09:51 | XMS_ITS | Encounter Summary ---
Author Organization [facility] Address [facility] [place] [address] Care Team Providers Care Nursing Manager Name Role Phone Vidhya Baptiste [facility] Primary Care Provider + Angela Olguin NP Primary Care Provider [phone] Gloria Castro [facility] Primary Care Provider + Freddie Zepeda MD Primary Care Provider [phone] Encounter Details Date Type Department Care Team (Late st Contact Info) Description 05/23/2022 ADINCON Message Enc [facility] Medical Group Family & Internal Medicine [facility] [address] [place] [address] 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 No / Unsure 05/25/2022 9:30 AM LEAD SYSTEMS ANALYST documented as of this encounter Plan of Treatment Upcoming Encounters Date Type Department Care Team (Late st Contact Info) Description 03/16/2025 11:20 AM CDT Office Visit [facility] Medical Group Family & Internal Medicine [address] [phone] [place] [address] [address] documented as of this encounter Visit Diagnoses Not on filedocumented in this encounter Additional Health Concerns Infection Onset Date Last Indicated Resolved Time COVID-19 Rule Out 05/16/2023 05/16/2023 05/16/2023 10:09 AM LEAD SYSTEMS ANALYST Influenza - Seasonal 05/16/2023 05/16/2023 023 12:32 AM LEAD SYSTEMS ANALYST Assessment Noted Time PHQ-9 Depression Total Score: 9 07/30/19 22 12:32 PM LEAD SYSTEMS ANALYST documented as of this encounter Care Teams Nursing Manager Relationship Specialty Start Date End Date Vidhya Baptiste FNP-BC PCP - General Nurse Practitioner Family 07/26/21 [place] [address] [facility] [address] [facility] [place] [address] PCP - General Nurse Practitioner Family 04/23/23 310/31 Gloria Castro, [facility]- [address], [address] [place] [address] PCP - General Nurse Practitioner Family 09/30/2401/06 [place] [address] [place] [address] PCP - General INTERNAL MEDICINE 01/17/25 documented as of this encounter
--- OUTSIDE RECORDS SUMMARY | 2025-02-04 09:52 | XMS_ITS | Encounter Summary ---
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 Wish to be (Past 1 Month) No 02/03/2025 10:38 AM CDT Jose Juan Oliveros RN A ctive 2. Non-Specific Active Suicidal Thoughts (Past 1 Month) No 02/03/2025 10:38 AM CDT Jose Juan Oliveros RN A ctive 6. Suicidal Behavior (Lifetime) No 02/03/2025 10:38 AM CDT Jose Juan Oliveros, GENET A ctive documented as of this encounter Plan of Treatment Upcoming Encounters Date Type Department Care Team (Late st Contact Info) Description 03/16/2025 11:20 AM CDT Office Visit [facility] Medical Group Family & Internal Medicine [address] [phone] [place] [address] [phone] documented as of this encounter Visit Diagnoses Not on filedocumented in this encounter Additional Health Concerns Assessment Noted Time PHQ-9 Depression Total Score: 3 12/05/19 25 9:09 AM CDT documented as of this encounter Care Teams Cage Unloader Relationship Specialty [place] [address] [address] PCP - General INTERNAL MEDICINE 01/17/25 documented as of this encounter
--- OUTSIDE RECORDS SUMMARY | 2025-02-04 09:52 | XMS_ITS | Encounter Summary ---
Author Organization [place] Address [facility] [place] [address] Care Team Providers Care Child Care Provider Name Role Phone Es Lazcano SENIOR RESEARCH ASSOCIATE Primary Care Provider Unav ailable Vidhya Baptiste [facility] Primary Care Provider + Angela Olguin SENIOR RESEARCH ASSOCIATE Primary Care Provider [phone] [facility] Primary Care Provider + Freddie Zepeda MD Primary Care Provider Encounter Details Date Type Department Care Team (Late st Contact Info) Description 04/08/2021 [email or web address] Message Enc [facility] Medical Group Family & Internal Medicine [facility] [address] [place] [address] 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 No / Unsure 03/24/2021 7:48 AM CDT documented as of this encounter Plan of Treatment Upcoming Encounters Date Type Department Care Team (Late st Contact Info) Description 03/16/2025 11:20 AM CDT Office Visit [facility] Medical Group Family & Internal Medicine [address] [address] Freddie Zepeda MD [address] [place] [address] documented as of this encounter Visit Diagnoses Not on filedocumented in this encounter Additional Health Concerns Infection Onset Date Last Indicated Resolved Time COVID-19 Rule Out 05/16/2023 05/16/2023 05/16/2023 10:09 AM MANAGER RELOCATION Influenza - Seasonal 05/16/2023 05/16/2023 023 12:32 AM MANAGER RELOCATION Assessment Noted Time PHQ-9 Depression Total Score: 11 021 7:28 AM CDT documented as of this encounter Care Teams Child Care Provider Relationship Specialty Start Date End Date Es Lazcano NP PCP - General NURSE PRACTITIONER 08/02/18 07/25/21 Vidhya Baptiste FNP-BC PCP - General Nurse Practitioner Family 07/26/21 [place] [address] [place] [address] PCP - General Nurse Practitioner Family 04/23/2309/07 Gloria Castro, [facility]- [address], [address] [place] [address] PCP - General Nurse Practitioner Family 09/30/2401/06 [place] [address] [place] [address] PCP - General INTERNAL MEDICINE 01/17/25 documented as of this encounter
--- OUTSIDE RECORDS SUMMARY | 2025-02-04 09:52 | XMS_ITS | Encounter Summary ---
Author Organization [facility] Address [address] [place] [address] Care Team Providers Care Bank Boss Name Role Phone Freddie Zepeda MD Primary Care Provider [phone] Reason for Visit * Reason Comments Breathing Problem Acute having trouble breathing and swollen Encounter Details Date Type Department Care Team (Late st Contact Info) Description 02/03/2025 10:00 AM CDT Office Visit [facility] Medical Group Family & Internal Medicine [facility] [address] [place] [address] Sam Ortiz PA [address] [place] [address] Breathing Problem (Acute having trouble breathing and swollen) Social History Tobacco Use Types Packs/Day Years [...] Sex Assigned at Female 08/03/2018 9:[address] AND BUILDING DECORATOR Legal Sex Female 7:04 PM CDT Gender Identity Female 08/03/2018 9:[address] AND BUILDING DECORATOR Sexual Orientation Straight 08/02/2018 9: [address] AND BUILDING DECORATOR 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 Last Filed Vital Signs Vital Sign Reading Time Taken Comments Blood Pressure 138/89 02/03/2025 9:57 AM CDT Pulse 80 02/03/2025 9:57 AM CDT Temperature 36.1 C (97 F) 02/03/2025 9:57 AM CDT Respiratory Rate 18 02/03/2025 9:57 AM CDT Oxygen Saturation 96% 02/03/2025 9:57 AM CDT Inhaled Oxygen Concentration - - Weight 133.1 kg (293 lb 6.4 oz) 02/03/2025 9:57 AM CDT Height 167.6 cm (5' 6) 02/03/2025 9:57 AM CDT Body Mass Index 47.36 02/03/2025 9:57 AM CDT documented in this encounter Functional Status * Calculated C-SSRS Risk Score (Lifetime/Recent) Answer Date of Assessment Author Status No Risk Indicated 02/03/2025 10:38 AM CDT Deonna Oliveros RN Active * [place] Suicide Severity Rating Scale (Screener/Recent Self-Report) Question [...] Description 03/16/2025 11:20 AM CDT Office Visit [facility] Medical Group Family & Internal Medicine [address] [address] [place] [address] [place] [address] documented as of this encounter Visit Diagnoses Not on filedocumented in this encounter Additional Health Concerns Assessment Noted Time PHQ-9 Depression Total Score: 3 12/05/19 25 9:09 AM CDT documented as of this encounter Care Teams Bank Boss Relationship Specialty [place] [address] [place] [address] PCP - General INTERNAL MEDICINE 01/17/25 documented as of this encounter
--- OUTSIDE RECORDS SUMMARY | 2025-02-04 09:52 | XMS_ITS | Encounter Summary ---
Author Organization [facility] Address [facility] [place] [address] Care Team Providers Care Ios Architect Name Role Phone Es Lazcano ELECTRICAL POWER STATION TECHNICIAN Primary Care Provider Unav ailable Vidhya Baptiste [facility] Primary Care Provider + Angela Olguin ELECTRICAL POWER STATION TECHNICIAN Primary Care Provider [phone] Gloria Castro [facility] Primary Care Provider + Freddie Zepeda MD Primary Care Provider [phone] Encounter Details Date Type Department Care Team (Late st Contact Info) Description 04/12/2021 CupomNowt Message Enc [facility] Medical Group Family & Internal Medicine [facility] [address] [place] [address] Vidhya Baptiste [facility] [address] [place] [phone] RE: Other Social History Tobacco Use Types [...] Sex Assigned at Female 08/03/2018 9:44 AM DIGITAL ACCOUNT COORDINATOR Legal Sex Female 7:04 PM CDT Gender Identity Female 08/03/2018 9:44 AM DIGITAL ACCOUNT COORDINATOR Sexual Orientation Straight 08/02/2018 9: 02 AM DIGITAL ACCOUNT COORDINATOR Occupation Industry Job Start Date Job End [...] Description 03/16/2025 11:20 AM CDT Office Visit [facility] Medical Group Family & Internal Medicine [address] [address] Freddie Zepeda MD [address] [place] [address] documented as of this encounter Visit Diagnoses Not on filedocumented in this encounter Additional Health Concerns Infection Onset Date Last Indicated Resolved Time COVID-19 Rule Out 05/16/2023 05/16/2023 05/16/2023 10:09 AM DIGITAL ACCOUNT COORDINATOR Influenza - Seasonal 05/16/2023 05/16/2023 023 12:32 AM DIGITAL ACCOUNT COORDINATOR Assessment Noted Time PHQ-9 Depression Total Score: 11 021 7:28 AM CDT documented as of this encounter Care Teams Ios Architect Relationship Specialty Start Date End Date Es Lazcano NP PCP - General NURSE PRACTITIONER 08/02/18 07/25/21 Vidhya Baptiste FNP-BC PCP - General Nurse Practitioner Family 07/26/21 [place] [address] [place] [address] PCP - General Nurse Practitioner Family 04/23/2309/07 Gloria Castro, [facility]- [address], [address] [place] [address] PCP - General Nurse Practitioner Family 09/30/2401/06 [place] [address] [place] [address] PCP - General INTERNAL MEDICINE 01/17/25 documented as of this encounter
--- OUTSIDE RECORDS SUMMARY | 2025-02-04 09:52 | XMS_ITS | Encounter Summary ---
Author Organization [facility] Address [facility] [place] [address] Care Team Providers Care Union Laborer Name Role Phone Es Lazcano COP WINDER Primary Care Provider Unav ailable Vidhya Baptiste [facility] Primary Care Provider + Angela Olguin [employer]ER Primary Care Provider [phone] Gloria Castro [facility] Primary Care Provider + Freddie Zepeda MD Primary Care Provider [phone] Encounter Details Date Type Department Care Team (Late st Contact Info) Description 03/21/2021 ValuNet Message Enc [facility] Medical Group Family & Internal Medicine [facility] [address] [place] [address] [facility] Provider Eugenia paperwork Social History Tobacco Use Types Packs/Day Years Used Date Smoking Tobacco: Former Cigarettes 0.3 3 1 990 - 1993 Smokeless Tobacco: Never Alcohol Use Standard [...] Sex Assigned at Female 08/03/2018 9:44 AM BUSINESS ADMINISTRATION INSTRUCTOR Legal Sex Female 7:04 PM CDT Gender Identity Female 08/03/2018 9:44 AM BUSINESS ADMINISTRATION INSTRUCTOR Sexual Orientation Straight 08/02/2018 9: 02 AM BUSINESS ADMINISTRATION INSTRUCTOR Occupation Industry Job Start Date Job [...] Description 03/16/2025 11:20 AM CDT Office Visit [facility] Medical Group Family & Internal Medicine [facility] [address] [place] [address] [place] [address] [place] [address] documented as of this encounter Visit Diagnoses Not on filedocumented in this encounter Additional Health Concerns Infection Onset Date Last Indicated Resolved Time COVID-19 Rule Out 05/16/2023 05/16/2023 05/16/2023 10:09 AM BUSINESS ADMINISTRATION INSTRUCTOR Influenza - Seasonal 05/16/2023 05/16/2023 023 12:32 AM BUSINESS ADMINISTRATION INSTRUCTOR Assessment Noted Time PHQ-9 Depression Total Score: 11 021 7:28 AM CDT documented as of this encounter Care Teams Union Laborer Relationship Specialty Start Date End Date Es Lazcano NP PCP - General NURSE PRACTITIONER 08/02/18 07/25/21 Vidhya Baptiste FNP-JONE PCP - General Nurse Practitioner Family 07/26/21 [place] [address] [place] [address] PCP - General Nurse Practitioner Family 04/23/2309/07 Gloria Castro, [facility]- [address], [address] [place] [address] PCP - General Nurse Practitioner Family 09/30/2401/06 [place] [address] [place] [address] PCP - General INTERNAL MEDICINE 01/17/25 documented as of this encounter
--- NOTE | 2025-02-04 10:05 | ECG_ITS ---
Test Date: 2025-02-04 10:36:36 Measurements Intervals [place] Rate: 74 P: -15 NC: 163 QRS: -6 QRSD: 95 T: 45 QT: 393 QTc: 438 Interpretive Statements SINUS RHYTHM No previous ECG available for comparison Electronically Signed On 02-04-2025 13:10:38 CDT by Dalton Evans D.O
[2025-02-04 10:16] VITALS: BP 125/75; PULSE 80; RESP 11; O2SAT 100
[2025-02-04 10:43] VITALS: RESP 20
[2025-02-04 10:50] LABS: Hematocrit 42.6 % (37.0-47.0); Hemoglobin 13.5 g/dL (12.0-15.0); Immature Granulocyte Percent A 0.8 % (0-0.5); Lymphocytes Absolute Auto 1.45 K/mm3 (0.9-3.2); Mean Corpuscular HGB Conc 31.7 g/dl (32-36); Mean Corpuscular Hemoglobin 26.9 pg (26-34); Mean Corpuscular Volume 84.9 fl (80-100); Nucleated Red Blood Cells Absolute Auto 0.000 K/mm3 (0.0-0.012); Nucleated Red Blood Cells Perc 0.0 % (0.0-0.2); Platelet Count Result 246 k/mm3 (150-375); Red Blood Count 5.02 M/mm3 (4.2-5.4); White Blood Count 6.2 K/mm3 (4.5-10.0)
--- OUTSIDE RECORDS SUMMARY | 2025-02-04 10:56 | XMS_ITS | Encounter Summary ---
Author Organization [facility] Address [address] [place] [address] Care Team Providers Care Student Recruiter Name Role Phone Vidhya Baptiste [facility] Primary Care Provider + Angela Olguin NP Primary Care Provider [phone] Gloria Castro [facility] Primary Care Provider + Freddie Zepeda MD Primary Care Provider [phone] Encounter Details Date Type Department Care Team (Late st Contact Info) Description 01/03/2023 MyChart Message Enc [facility] Medical Group - [facility] [address] [place] [address] [place], [facility] Provider Air Quality Message Social History Tobacco [...] Sex Assigned at Female 08/03/2018 9:44 AM ICT HELP DESK TECHNICIAN Legal Sex Female 7:04 PM CDT Gender Identity Female 08/03/2018 9:44 AM ICT HELP DESK TECHNICIAN Sexual Orientation Straight 08/02/2018 9: 02 AM ICT HELP DESK TECHNICIAN 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 Plan of Treatment Upcoming Encounters Date Type Department Care Team (Late st Contact Info) Description 03/16/2025 11:20 AM CDT Office Visit [facility] Medical Group Family & Internal Medicine [facility] [address] [place] [address] [place] [address] [facility] [address] [place], [place] [address] documented as of this encounter Visit Diagnoses Not on filedocumented in this encounter Additional Health Concerns Infection Onset Date Last Indicated Resolved Time COVID-19 Rule Out 05/16/2023 05/16/2023 05/16/2023 10:09 AM ICT HELP DESK TECHNICIAN Influenza - Seasonal 05/16/2023 05/16/2023 023 12:32 AM ICT HELP DESK TECHNICIAN Assessment Noted Time PHQ-9 Depression Total Score: 3 12/02/19 23 3:04 PM CDT documented as of this encounter Care Teams Student Recruiter Relationship Specialty Start Date End Date Vidhya Baptiste [facility]- PCP - General Nurse Practitioner Family 07/26/21 [place] [address] [address] [address] [place] [address] PCP - General Nurse Practitioner Family 04/23/2309/07 Gloria Castro, [employer]- [address] [address], [address] [place] [address] PCP - General Nurse Practitioner Family 09/30/2401/06 [place] [address] [place] [address] PCP - General INTERNAL MEDICINE 01/17/25 documented as of this encounter
--- OUTSIDE RECORDS SUMMARY | 2025-02-04 10:56 | XMS_ITS | Encounter Summary ---
Author Organization [facility] Address [facility] [place] [address] Care Team Providers Care Chief Clinical Dietitian Name Role Phone Es Lazcano TIN PLATER Primary Care Provider Unav ailable Vidhya Baptiste [facility] Primary Care Provider + Angela Olguin TIN PLATER Primary Care Provider [phone] [facility] Primary Care Provider + Freddie Zepeda MD Primary Care Provider [phone] Encounter Details Date Type Department Care Team (Late st Contact Info) Description 10/03/2018 Computime Message Enc [facility] Medical Group Family & Internal Medicine [facility] [address] [place] [address] Es Lazcano NP RE: Other [...] Sex Assigned at Female 08/03/2018 9:44 AM AIRCRAFT SHEET METAL MECHANIC Legal Sex Female 7:04 PM CDT Gender Identity Female 08/03/2018 9:44 AM AIRCRAFT SHEET METAL MECHANIC Sexual Orientation Straight 08/02/2018 9: 02 AM AIRCRAFT SHEET METAL MECHANIC 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 Plan of Treatment Upcoming Encounters Date Type Department Care Team (Late st Contact Info) Description 03/16/2025 11:20 AM CDT Office Visit [facility] Medical Group Family & Internal Medicine [facility] [address] [place] [address] [place] [address] [facility] [address] [place] [address] documented as of this encounter Visit Diagnoses Not on filedocumented in this encounter Additional Health Concerns Infection Onset Date Last Indicated Resolved Time COVID-19 Rule Out 09/11/2020 09/11/2020 09/11/2020 10:00 AM AIRCRAFT SHEET METAL MECHANIC COVID-19 Rule Out 05/16/2023 05/16/2023 05/16/2023 10:09 AM AIRCRAFT SHEET METAL MECHANIC Influenza - Seasonal 05/16/2023 05/16/2023 023 12:32 AM AIRCRAFT SHEET METAL MECHANIC documented as of this encounter Care Teams Chief Clinical Dietitian Relationship Specialty Start Date End Date Es Lazcano NP PCP - General NURSE PRACTITIONER 08/02/18 07/25/21 Vidhya Baptiste, [facility]- PCP - General Nurse Practitioner Family 07/26/21 [place] [address] [facility] Suite [facility] [place] [address] PCP - General Nurse Practitioner Family 04/23/23 310/31 Gloria Castro, ACTIVITIES LEADER- [address] [facility] [address], [address] [place] [address] PCP - General Nurse Practitioner Family 09/30/2401/06 [place] [address] [address] [place] [address] PCP - General INTERNAL MEDICINE 01/17/25 documented as of this encounter
--- OUTSIDE RECORDS SUMMARY | 2025-02-04 10:56 | XMS_ITS | Encounter Summary ---
Author Organization [facility] Address [address] [place] [address] Care Team Providers Care Salvage Mend Worker Name Role Phone Vidhya Baptiste [facility] Primary Care Provider + Angela Olguin DIRECTOR PART Primary Care Provider [phone] Gloria Castro [facility] Primary Care Provider + Freddie Zepeda MD Primary Care Provider [phone] Encounter Details Date Type Department Care Team (Late st Contact Info) Description 06/19/2022 Augmedixt Message Enc [facility] Medical Group Family & Internal Medicine [facility] [address] [place] [address] Leanne Calvillo, ISABELLA [address] [address] [place] Social History Tobacco Use [...] Sex Assigned at Female 08/03/2018 9:44 AM ENGLISH ADJUNCT FACULTY Legal Sex Female 7:04 PM CDT Gender Identity Female 08/03/2018 9:44 AM ENGLISH ADJUNCT FACULTY Sexual Orientation Straight 08/02/2018 9: 02 AM ENGLISH ADJUNCT FACULTY 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 No / Unsure 06/14/2022 1:50 PM ENGLISH ADJUNCT FACULTY documented as of this encounter Plan of Treatment Upcoming Encounters Date Type Department Care Team (Late st Contact Info) Description 03/16/2025 11:20 AM CDT Office Visit [facility] Medical Group Family & Internal Medicine [facility] [address] [place], [place] [address] [place] [address] [place] [address] documented as of this encounter Visit Diagnoses Not on filedocumented in this encounter Additional Health Concerns Infection Onset Date Last Indicated Resolved Time COVID-19 Rule Out 05/16/2023 05/16/2023 05/16/2023 10:09 AM ENGLISH ADJUNCT FACULTY Influenza - Seasonal 05/16/2023 05/16/2023 023 12:32 AM ENGLISH ADJUNCT FACULTY Assessment Noted Time PHQ-9 Depression Total Score: 9 07/30/19 22 12:32 PM ENGLISH ADJUNCT FACULTY documented as of this encounter Care Teams Salvage Mend Worker Relationship Specialty Start Date End Date Vidhya Baptiste FNP-BC PCP - General Nurse Practitioner Family 07/26/21 Angela Olguin, DIRECTOR PART [address] [place] [address] [address] [address] PCP - General Nurse Practitioner Family 04/23/2309/07 Gloria Castro, [facility]- [address], [address] [place] [address] PCP - General Nurse Practitioner Family 09/30/2401/06 [place] [address] [address] [place] [address] PCP - General INTERNAL MEDICINE 01/17/25 documented as of this encounter
--- OUTSIDE RECORDS SUMMARY | 2025-02-04 10:56 | XMS_ITS | Encounter Summary ---
Author Organization [facility] Address [address] [place] [address] Care Team Providers Care Head Grease Maker Name Role Phone Es Lazcano METHANE GAS COLLECTION SYSTEM OPERATOR Primary Care Provider Unav ailable Vidhya Baptiste [facility] Primary Care Provider + Angela Olguin METHANE GAS COLLECTION SYSTEM OPERATOR Primary Care Provider [phone] Gloria Castro [facility] Primary Care Provider + Freddie Zepeda MD Primary Care Provider [phone] Encounter Details Date Type Department Care Team (Late st Contact Info) Description 01/07/2019 [email or web address] Message Enc [facility] Medical Group Family & Internal Medicine [facility] [address] [place] [address] Es Lazcano NP RE: Question [...] Sex Assigned at Female 08/03/2018 9:44 AM ELECTRIC GOLF CART REPAIRER Legal Sex Female 7:04 PM CDT Gender Identity Female 08/03/2018 9:44 AM ELECTRIC GOLF CART REPAIRER Sexual Orientation Straight 08/02/2018 9: 02 AM ELECTRIC GOLF CART REPAIRER 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 Plan of Treatment Upcoming Encounters Date Type Department Care Team (Late st Contact Info) Description 03/16/2025 11:20 AM CDT Office Visit [facility] Medical Group Family & Internal Medicine [facility] [address] [place] [address] [place] [address] [facility] [address] [place] [address] documented as of this encounter Visit Diagnoses Not on filedocumented in this encounter Additional Health Concerns Infection Onset Date Last Indicated Resolved Time COVID-19 Rule Out 09/11/2020 09/11/2020 09/11/2020 10:00 AM ELECTRIC GOLF CART REPAIRER COVID-19 Rule Out 05/16/2023 05/16/2023 05/16/2023 10:09 AM ELECTRIC GOLF CART REPAIRER Influenza - Seasonal 05/16/2023 05/16/2023 023 12:32 AM ELECTRIC GOLF CART REPAIRER documented as of this encounter Care Teams Head Grease Maker Relationship Specialty Start Date End Date Es Lazcano NP PCP - General NURSE PRACTITIONER 08/02/18 07/25/21 Vidhya Baptiste, [facility]- PCP - General Nurse Practitioner Family 07/26/21 [place] [address] [facility] Suite [facility] [place] [address] PCP - General Nurse Practitioner Family 04/23/23 310/31 Gloria Castro, LANGUAGE TUTOR- [address] [facility] [address], [address] [place] [address] PCP - General Nurse Practitioner Family 09/30/2401/06 [place] [address] [address] [place] [address] PCP - General INTERNAL MEDICINE 01/17/25 documented as of this encounter
--- OUTSIDE RECORDS SUMMARY | 2025-02-04 10:56 | XMS_ITS | Encounter Summary ---
Author Organization [facility] Address [facility] [place] [address] Care Team Providers Care Sql Report Writer Name Role Phone Es Lazcano DEVELOPER ADVOCATE Primary Care Provider Unav ailable Vidhya Baptiste [facility] Primary Care Provider + Angela Olguin DEVELOPER ADVOCATE Primary Care Provider [phone] Gloria Castro [facility] Primary Care Provider + Freddie Zepeda MD Primary Care Provider [phone] Encounter Details Date Type Department Care Team (Late st Contact Info) Description 09/23/2018 Ku6 Message Enc [facility] Medical Group Family & Internal Medicine [facility] [address] [place] [address] Es Lazcano NP RE: Other [...] Sex Assigned at Female 08/03/2018 9:44 AM BARREL DRAINER Legal Sex Female 7:04 PM CDT Gender Identity Female 08/03/2018 9:44 AM BARREL DRAINER Sexual Orientation Straight 08/02/2018 9: 02 AM BARREL DRAINER 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 Plan of Treatment Upcoming Encounters Date Type Department Care Team (Late st Contact Info) Description 03/16/2025 11:20 AM CDT Office Visit [facility] Medical Group Family & Internal Medicine [facility] [address] [place] [address] [place] [address] [facility] [address] [place] [address] documented as of this encounter Visit Diagnoses Not on filedocumented in this encounter Additional Health Concerns Infection Onset Date Last Indicated Resolved Time COVID-19 Rule Out 09/11/2020 09/11/2020 09/11/2020 10:00 AM BARREL DRAINER COVID-19 Rule Out 05/16/2023 05/16/2023 05/16/2023 10:09 AM BARREL DRAINER Influenza - Seasonal 05/16/2023 05/16/2023 023 12:32 AM BARREL DRAINER documented as of this encounter Care Teams Sql Report Writer Relationship Specialty Start Date End Date Es Lazcano NP PCP - General NURSE PRACTITIONER 08/02/18 07/25/21 Vidhya Baptiste, [facility]- PCP - General Nurse Practitioner Family 07/26/21 [place] [address] [facility] [address] [facility]. [place] [address] PCP - General Nurse Practitioner Family 04/23/23 310/31 Gloria Castro, GAS COMBUSTION ENGINEER- [address] [facility] [address], [address] [place] [address] PCP - General Nurse Practitioner Family 09/30/2401/06 [place] [address] [address] [place] [address] PCP - General INTERNAL MEDICINE 01/17/25 documented as of this encounter
--- OUTSIDE RECORDS SUMMARY | 2025-02-04 10:56 | XMS_ITS | Encounter Summary ---
Author Organization [facility] Address [facility] [place] [address] Care Team Providers Care Partner Management Consultant Name Role Phone Vidhya Baptiste [facility] Primary Care Provider + Angela Olguin NP Primary Care Provider [phone] Gloria Castro [facility] Primary Care Provider + Freddie Zepeda MD Primary Care Provider [phone] Encounter Details Date Type Department Care Team (Late st Contact Info) Description 09/25/2022 Technologie BiolActis Message Enc [facility] Medical Group Family & Internal Medicine [facility] [address] [place] [address] [facility] Provider due for appointment Social History Tobacco [...] Sex Assigned at Female 08/03/2018 9:44 AM SYSTEMS ENGINEER Legal Sex Female 7:04 PM CDT Gender Identity Female 08/03/2018 9:44 AM SYSTEMS ENGINEER Sexual Orientation Straight 08/02/2018 9: 02 AM SYSTEMS ENGINEER 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 Plan of Treatment Upcoming Encounters Date Type Department Care Team (Late st Contact Info) Description 03/16/2025 11:20 AM CDT Office Visit [facility] Medical Group Family & Internal Medicine [facility] [address] [place] [address] [place] [address] [facility] [address] [place] [address] documented as of this encounter Visit Diagnoses Not on filedocumented in this encounter Additional Health Concerns Infection Onset Date Last Indicated Resolved Time COVID-19 Rule Out 05/16/2023 05/16/2023 05/16/2023 10:09 AM SYSTEMS ENGINEER Influenza - Seasonal 05/16/2023 05/16/2023 023 12:32 AM SYSTEMS ENGINEER Assessment Noted Time PHQ-9 Depression Total Score: 9 07/30/19 22 12:32 PM SYSTEMS ENGINEER documented as of this encounter Care Teams Partner Management Consultant Relationship Specialty Start Date End Date Vidhya Baptiste, ADVANCED MANUFACTURING TECHNICIAN- PCP - General Nurse Practitioner Family 07/26/21 [place] [address] [facility] Technologies[facility] [address] [place] [address] PCP - General Nurse Practitioner Family 04/23/23 310/31 Gloria Castro, ADVANCED MANUFACTURING TECHNICIAN-BC [address] [facility], [address] [place] [address] PCP - General Nurse Practitioner Family 09/30/2401/06 [place] [address] [address] PCP - General INTERNAL MEDICINE 01/17/25 documented as of this encounter
--- OUTSIDE RECORDS SUMMARY | 2025-02-04 10:56 | XMS_ITS | Encounter Summary ---
Author Organization [facility] Address [address] [place] [address] Care Team Providers Care Climbing Guide Name Role Phone Es Lazcano AUTOMOTIVE SERVICE ADVISOR Primary Care Provider Unav ailable Vidhya Baptiste [facility] Primary Care Provider + Angela Olguin AUTOMOTIVE SERVICE ADVISOR Primary Care Provider [phone] Gloria Castro [facility] Primary Care Provider + Freddie Zepeda MD Primary Care Provider [phone] Reason for Visit * Reason Onset Date Comments Refill Request 02/02/2019 Encounter Details Date Type Department Care Team (Late st Contact Info) Description 02/02/2019 Hububt Message [facility] Medical Group Family & Internal Medicine [facility] [address] [place] [address] Es Lazcano, AUTOMOTIVE SERVICE ADVISOR RE: Other Social History Tobacco Use Types [...] Sex Assigned at Female 08/03/2018 9:44 AM SENSITIZER Legal Sex Female 7:04 PM CDT Gender Identity Female 08/03/2018 9:44 AM SENSITIZER Sexual Orientation Straight 08/02/2018 9: 02 AM SENSITIZER 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 Plan of Treatment Upcoming Encounters Date Type Department Care Team (Late st Contact Info) Description 03/16/2025 11:20 AM CDT Office Visit [facility] Medical Group Family & Internal Medicine [facility] [address] [place] [address] [place] [address] [address] documented as of this encounter Visit Diagnoses Diagnosis Essential hypertension- Primary Unspecified essential hypertension documented in this encounter Additional Health Concerns Infection Onset Date Last Indicated Resolved Time COVID-19 Rule Out 09/11/2020 09/11/2020 09/11/2020 10:00 AM SENSITIZER COVID-19 Rule Out 05/16/2023 05/16/2023 05/16/2023 10:09 AM SENSITIZER Influenza - Seasonal 05/16/2023 05/16/2023 023 12:32 AM SENSITIZER documented as of this encounter Care Teams Climbing Guide Relationship Specialty Start Date End Date Es Lazcano AUTOMOTIVE SERVICE ADVISOR PCP - General NURSE PRACTITIONER 08/02/18 07/25/21 Vidhya Baptiste DAIRY CHEMIST- PCP - General Nurse Practitioner Family 07/26/21 [place] [address] [facility] Suite [facility] [place] [address] PCP - General Nurse Practitioner Family 04/23/23 310/31 Gloria Castro [facility]- [address] [address], [address] [place] [address] PCP - General Nurse Practitioner Family 09/30/2401/06 [place] [address] [address] [place] [address] PCP - General INTERNAL MEDICINE 01/17/25 documented as of this encounter
--- OUTSIDE RECORDS SUMMARY | 2025-02-04 10:57 | XMS_ITS | Encounter Summary ---
Author Organization [facility] Address [address] [place] [address] Care Team Providers Care Medical Assembly Name Role Phone Es Lazcano PASSENGER CAR INSPECTOR Primary Care Provider Unav ailable Vidhya Baptiste [facility] Primary Care Provider + Angela Olguin PASSENGER CAR INSPECTOR Primary Care Provider [phone] Gloria Castro [facility] Primary Care Provider + Freddie Zepeda MD Primary Care Provider [phone] Encounter Details Date Type Department Care Team (Late st Contact Info) Description 04/07/2019 [employer] Message Enc [facility] Medical Group Family & Internal Medicine [facility] [address] [place] [address] Es Lazcano NP RE: Question [...] Sex Assigned at Female 08/03/2018 9:44 AM DIESEL MECHANIC Legal Sex Female 7:04 PM CDT Gender Identity Female 08/03/2018 9:44 AM DIESEL MECHANIC Sexual Orientation Straight 08/02/2018 9: 02 AM DIESEL MECHANIC 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 Plan of Treatment Upcoming Encounters Date Type Department Care Team (Late st Contact Info) Description 03/16/2025 11:20 AM CDT Office Visit [facility] Medical Group Family & Internal Medicine [facility] [address] [place] [address] [place] [address] [facility] [address] [place] [address] documented as of this encounter Visit Diagnoses Not on filedocumented in this encounter Additional Health Concerns Infection Onset Date Last Indicated Resolved Time COVID-19 Rule Out 09/11/2020 09/11/2020 09/11/2020 10:00 AM DIESEL MECHANIC COVID-19 Rule Out 05/16/2023 05/16/2023 05/16/2023 10:09 AM DIESEL MECHANIC Influenza - Seasonal 05/16/2023 05/16/2023 023 12:32 AM DIESEL MECHANIC documented as of this encounter Care Teams Medical Assembly Relationship Specialty Start Date End Date Es Lazcano NP PCP - General NURSE PRACTITIONER 08/02/18 07/25/21 Vidhya Baptiste, [facility]- PCP - General Nurse Practitioner Family 07/26/21 [place] [address] [facility] Suite [facility] [place] [address] PCP - General Nurse Practitioner Family 04/23/23 310/31 Gloria Castro, SCOREBOARD OPERATOR- [address] [facility] [address], [address] [place] [address] PCP - General Nurse Practitioner Family 09/30/2401/06 [place] [address] [address] [place] [address] PCP - General INTERNAL MEDICINE 01/17/25 documented as of this encounter
--- OUTSIDE RECORDS SUMMARY | 2025-02-04 10:57 | XMS_ITS | Encounter Summary ---
Author Organization [facility] Address [facility] [place] [address] Care Team Providers Care Weapons Engineer Name Role Phone Vidhya Baptiste [facility] Primary Care Provider + Angela Olguin NP Primary Care Provider [phone] Gloria Castro [facility] Primary Care Provider + Freddie Zepeda MD Primary Care Provider [phone] Encounter Details Date Type Department Care Team (Late st Contact Info) Description 09/29/2021 MyCT[employer] Message Enc [facility] Medical Group Family & Internal Medicine [facility] [address] [place] [address] Vidhya Baptiste [facility] [address] [place] [address] My appointment Social History Tobacco Use Types [...] Sex Assigned at Female 08/03/2018 9:44 AM DOWEL PIN MAN Legal Sex Female 7:04 PM CDT Gender Identity Female 08/03/2018 9:44 AM DOWEL PIN MAN Sexual Orientation Straight 08/02/2018 9: 02 AM DOWEL PIN MAN Occupation Industry Job Start Date Job End [...] Description 03/16/2025 11:20 AM CDT Office Visit [facility] Medical Group Family & Internal Medicine - [place] [address] [place] [address] Freddie Z[place]eda [place] [address] [place] [address] [place] [address] documented as of this encounter Visit Diagnoses Not on filedocumented in this encounter Additional Health Concerns Infection Onset Date Last Indicated Resolved Time COVID-19 Rule Out 05/16/2023 05/16/2023 05/16/2023 10:09 AM DOWEL PIN MAN Influenza - Seasonal 05/16/2023 05/16/2023 023 12:32 AM DOWEL PIN MAN Assessment Noted Time PHQ-9 Depression Total Score: 9 07/30/19 22 12:32 PM DOWEL PIN MAN documented as of this encounter Care Teams Weapons Engineer Relationship Specialty Start Date End Date Vidhya Baptiste, [facility] PCP - General Nurse Practitioner Family 07/26/21 Angela Olguin, DIAMOND PICKER [address] [address] PCP - General Nurse Practitioner Family 04/23/2309/07 Gloria Castro, [facility] [address] [employer], [address] [place] [address] PCP - General Nurse Practitioner Family 09/30/2401/06 [place] [address] [employer] [address] [place] [address] PCP - General INTERNAL MEDICINE 01/17/25 documented as of this encounter
--- OUTSIDE RECORDS SUMMARY | 2025-02-04 10:57 | XMS_ITS | Encounter Summary ---
Author Organization [facility] Address [address] [place] [address] Care Team Providers Care Bush And Vine Farmer Fruit Crops Name Role Phone Vidhya Baptiste [facility] Primary Care Provider + Angela Olguin HOSIERY MATER Primary Care Provider Gloria Castro [facility] Primary Care Provider + Freddie Zepeda MD Primary Care Provider [phone] Encounter Details Date Type Department Care Team (Late st Contact Info) Description 06/19/2022 Exot Message Enc [facility] Family & Internal Medicine [facility] [address] [place] [address] Leanne Calvillo, ISABELLA [address] [address] [place] Social History Tobacco Use [...] Sex Assigned at Female 08/03/2018 9:44 AM DIRT SHOVELER Legal Sex Female 7:04 PM CDT Gender Identity Female 08/03/2018 9:44 AM DIRT SHOVELER Sexual Orientation Straight 08/02/2018 9: 02 AM DIRT SHOVELER 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 No / Unsure 06/14/2022 1:50 PM DIRT SHOVELER documented as of this encounter Plan of Treatment Upcoming Encounters Date Type Department Care Team (Late st Contact Info) Description 03/16/2025 11:20 AM CDT Office Visit [facility] Family & Internal Medicine [facility] [address] [place], [place] [phone] [place] [address] [place] [address] documented as of this encounter Visit Diagnoses Not on filedocumented in this encounter Additional Health Concerns Infection Onset Date Last Indicated Resolved Time COVID-19 Rule Out 05/16/2023 05/16/2023 05/16/2023 10:09 AM DIRT SHOVELER Influenza - Seasonal 05/16/2023 05/16/2023 023 12:32 AM DIRT SHOVELER Assessment Noted Time PHQ-9 Depression Total Score: 9 07/30/19 22 12:32 PM DIRT SHOVELER documented as of this encounter Care Teams Bush And Vine Farmer Fruit Cro[employer] Relationship Specialty Start Date End Date Vidhya Baptiste FNP-BC PCP - General Nurse Practitioner Family 07/26/21 Angela Olguin, HOSIERY MATER [address] [place] [address] [address] [address] PCP - General Nurse Practitioner Family 04/23/2309/07 Gloria Castro, [facility]- [address], [address] [place] [address] PCP - General Nurse Practitioner Family 09/30/2401/06 [place] [address] [place] [address] PCP - General INTERNAL MEDICINE 01/17/25 documented as of this encounter
--- OUTSIDE RECORDS SUMMARY | 2025-02-04 10:57 | XMS_ITS | Encounter Summary ---
Author Organization [facility] Address [address] [place] [address] Care Team Providers Care Saddle Lining Stitcher Name Role Phone Vidhya Baptiste [facility] Primary Care Provider + Angela Olguin NP Primary Care Provider [phone] Gloria Castro [facility] Primary Care Provider + Freddie Zepeda MD Primary Care Provider [phone] Encounter Details Date Type Department Care Team (Late st Contact Info) Description 08/08/2021 MyCKnowromt Message Enc [facility] Family & Internal Medicine [facility] [address] [place] [address] Vidhya Baptiste [facility] [address] [place] [phone] Intermittent leave Social History Tobacco Use Types [...] Sex Assigned at Female 08/03/2018 9:44 AM KEY ATTENDANT Legal Sex Female 7:04 PM CDT Gender Identity Female 08/03/2018 9:44 AM KEY ATTENDANT Sexual Orientation Straight 08/02/2018 9: 02 AM KEY ATTENDANT 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 No / Unsure 07/26/2021 6:54 AM KEY ATTENDANT documented as of this encounter Plan of Treatment Upcoming Encounters Date Type Department Care Team (Late st Contact Info) Description 03/16/2025 11:20 AM CDT Office Visit [facility] Family & Internal Medicine [facility] [address] [place] [phone] [place] [address] [address] documented as of this encounter Visit Diagnoses Not on filedocumented in this encounter Additional Health Concerns Infection Onset Date Last Indicated Resolved Time COVID-19 Rule Out 05/16/2023 05/16/2023 05/16/2023 10:09 AM KEY ATTENDANT Influenza - Seasonal 05/16/2023 05/16/2023 023 12:32 AM KEY ATTENDANT Assessment Noted Time PHQ-9 Depression Total Score: 9 07/30/19 22 12:32 PM KEY ATTENDANT documented as of this encounter Care Teams Saddle Lining Stitcher Relationship Specialty Start Date End Date Vidhya Baptiste FNP-BC PCP - General Nurse Practitioner Family 07/26/21 Angela Olguin, STRUCTURAL STEEL TRADES WORKER [address] [facility] [address] [address] PCP - General Nurse Practitioner Family 04/23/2309/07 Gloria Castro, [facility]- [address], [address] [place] [address] PCP - General Nurse Practitioner Family 09/30/2401/06 [place] [address] [address] [place] [address] PCP - General INTERNAL MEDICINE 01/17/25 documented as of this encounter
--- OUTSIDE RECORDS SUMMARY | 2025-02-04 10:57 | XMS_ITS | Encounter Summary ---
Author Organization [facility] Address [facility] [place] [address] Care Team Providers Care Automat Car Attendant Name Role Phone Angela Olguin NP Primary Care Provider [phone] Gloria Castro TECHNICIAN TRAINEE- Primary Care Provider + Freddie Zepeda MD Primary Care Provider [phone] Encounter Details Date Type Department Care Team (Late st Contact Info) Description 05/18/2023 Dr. 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 Plan of Treatment Upcoming Encounters Date Type Department Care Team (Late st Contact Info) Description 03/16/2025 11:20 AM CDT Office Visit [facility] Family & Internal Medicine [facility] [address] [place] [address] [place] [address] [facility] [address] [place] [address] documented as of this encounter Visit Diagnoses Not on filedocumented in this encounter Additional Health Concerns Infection Onset Date Last Indicated Resolved Time Influenza - Seasonal 05/16/2023 05/16/2023 023 12:32 AM GLASS BULB MACHINE ADJUSTER Assessment Noted Time PHQ-9 Depression Total Score: 3 12/02/19 23 3:04 PM CDT documented as of this encounter Care Teams Automat Car Attendant Relationship Specialty Start Date End Date Angela Olguin FRAME POLISHER [address] [facility] [address] [facility] [place] [address] PCP - General Nurse Practitioner Family 04/23/2309/07 Gloria Castro, TECHNICIAN TRAINEE- [address] [facility], [address] [place] [address] PCP - General Nurse Practitioner Family 09/30/2401/06 [place] [address] [facility] [address] [place] [address] PCP - General INTERNAL MEDICINE 01/17/25 documented as of this encounter
--- OUTSIDE RECORDS SUMMARY | 2025-02-04 10:57 | XMS_ITS | Clinical Summary ---
Author Organization [facility] Address [facility] [place] [address] Care Team Providers Care Orthodontic Lab Technician Name Role Phone Freddie Zepeda MD Primary Care Provider [phone] Allergies Active Allergy Reactions Criticality Noted Date [...] hyperglycemia, without long-term current use of insulin ([facility]/HCC HHS/HCC) 01/15/2024 Morbid obesity with BMI [...] CDT - 02/03/2025 1:10 PM CDT Emergency [facility] Emergency Room [address] [place] [address] Clarisa Lang MD Shortness Of Breath ; Chest Pain; Edema Discharge Disposition: Home or Self Care (Routine Discharge) 02/03/2025 10:00 AM CDT Office Visit [facility] [address] [phone] Sam Ortiz PA Breathing Problem (Acute having trouble breathing and swollen) 02/03/2025 Travel 01/23/2025 Orders Only [facility] [address] [address] Freddie Zepeda MD 01/07/2025 Telephone [facility] [address] [phone] Mouna Castro FNP-BC Referral 12/18/2024 Results Follow-Up [facility] [address] [place] [address] Mouna Castro FNP-JONE Cytopath Cerv/Vag Thin Layer 12/12/2024 4:45 PM CDT - 12/12/2024 11:59 PM CDT Hospital Encounter [facility] [address] [place] [address] Mouna Castro FNP-JONE Discharge Disposition: Home or Self Care (Routine Discharge) 12/12/2024 2:20 PM CDT Office Visit [facility] [address] [phone] Mouna Castro FNP-BC Delivery Truck Driver Exam (Woman's health eval pap) 12/12/2024 6:54 AM CDT - 12/12/2024 4:44 PM CDT Hospital Encounter [facility] [address] [place] [address] Mouna Castro FNP-BC Discharge Disposition: Home or Self Care (Routine Discharge) 12/12/2024 Travel 12/04/2024 8:20 AM CDT Office Visit [facility] Family & Internal Medicine [address] [address] Mouna Castro FNP-BC Follow Up [...] Assigned at Female 08/03/2018 9:44 AM DIRECTOR OF EMPLOYEE DEVELOPMENT Legal Sex Female 7:04 PM CDT Gender Identity Female 08/03/2018 9:44 AM DIRECTOR OF EMPLOYEE DEVELOPMENT Sexual Orientation Straight 08/02/2018 9: 02 AM DIRECTOR OF EMPLOYEE DEVELOPMENT Occupation Industry Job Start Date Job End [...] Description 03/16/2025 11:20 AM CDT Office Visit [facility] Family & Internal Medicine [address] [address] [place] [address] [place] [address] [place] [address] Health Maintenance Due Date Last Done [...] Vaccines Completed 03/09/2020, 06/08, 03/13/2018 PHQ-2 (Physician Cherry Log) Completed 12/04/2024 Meningococcal B Vaccine Aged Out [...] AM CDTThis note is in progress. [facility] Test Date: 2025-02-03 Pat Name: LUTHER COATES Department: 85 Room: EXAM 101 Gender: Female Photographer'S Model: : 1965 Requested By: CLARISA LANG Order Number: [id number] Reading MD: Measurements Intervals Herreid Rate: 75 P: -11 WA: 160 QRS: [...] HPV MRNA E6/E7 Routine 09/03/2018 9:23 PM DIRECTOR OF EMPLOYEE DEVELOPMENT from Last 3 Months or Most Recently [...] 12:15 PM Narrative 02/03/2025 12:23 PM CDT [facility] [address] [facility]. [place] [phone] PROCEDURE: CTA CHEST PE PROTOCOL. HISTORY: Evaluate [...] Note Rose Marie Buenrostro MD - 02/03/2025 [facility] [address] [address] PROCEDURE: CTA CHEST PE PROTOCOL. HISTORY: Evaluate [...] 11:04 AM Narrative 02/03/2025 11:05 AM CDT [facility] [address] [place] [address] Examination: Chest Radiograph, 1 view Exam Date/Time: [...] Procedure Note Dante Muhammad MD - 02/03/2025 [facility] [address] [place] [address] Examination: Chest Radiograph, 1 view Exam Date/Time: [...] 34 <125 PG/ML 02/03/2025 11:07 AM CDT [facility] Comment: CUT POINTS ESTABLISHED BY INTERNATIONAL [...] MD LABORATORY Final Result Performing Organization Address [facility] Co de Phone Number [facility] [address] [place] [address], [place] [phone] * PROTIME/INR, VENOUS (02/03/2025 10:35 AM CDT) PROTIME 11.4 9.1 - 12.4 SEC 02/03/2025 10:55 AM CDT [facility] INR 1.0 02/03/2025 10:55 AM CDT [facility] Comment: Recommend INR ranges for Oral Anticoagulant Therapy: Mechanical Cardiac Values 2.5-3.5 All others indication 2.0-3.0 02/03/2025 10:3 5 AM CDT us Clarisa Lang MD LABORATORY Final Result Performing Organization Address [facility] Co de Phone Number [facility] [address] [place] [address], [place] [phone] * (ABNORMAL) COMPREHENSIVE METABOLIC PANEL (02/03/2025 10:35 AM CDT) GLUCOSE 144(H) 70 - 99 MG/DL 02/03/2025 11:07 AM CDT [facility] BUN 14 7 - 18 MG/DL 02/03/2025 11:07 AM CDT [facility] CREATININE S/P/B 0.61 0.55 - 1.02 MG/DL 02/03/2025 11:07 AM CDT [facility] SODIUM S/P/B 139 136 - 145 MMOL/L 02/03/2025 11:07 [facility] POTASSIUM S/P/B 4.3 3.5 - 5.1 MMOL/L 02/03/2025 11:07 [facility] CHLORIDE S/P/B 103 100 - 108 MMOL/L 02/03/2025 11:07 [facility] CO2 31.1 21 - 32 MMOL/L 02/03/2025 11:07 [facility] CALCIUM S/P/B 8.6 8.5 - 10.1 MG/DL 02/03/2025 11:07 [facility] BILIRUBIN TOTAL S/P/B 0.2 0.2 - 1.2 MG/DL 02/03/2025 11:07 [facility] TOTAL PROTEIN S/P/B 7.3 6.4 - 8.2 G/DL 02/03/2025 11:07 [facility] ALBUMIN S/P/B 3.4 3.4 - 5.0 G/DL 02/03/2025 11:07 [facility] AST 37 15 - 37 U/L 02/03/2025 11:07 [facility] ALT 40 14 - 55 U/L 02/03/2025 11:07 [facility] ALKALINE PHOSPHATASE S/P/B 163(H) 50 - 136 U/L 02/03/2025 11:07 [facility] ANION GAP 4.9(L) 5 - 15 MMOL/L 02/03/2025 11:07 [facility] BUN CREATININE RATIO 23.0 6 - 26 02/03/2025 11:07 [facility] A/G RATIO 0.9(L) 1.0 - 2.0 RATIO 02/03/2025 11:07 AM CDT [facility] GFR ESTIMATE >90 >90 ML/MIN/1.7 3 M2 02/03/2025 11:07 AM CDT [facility] Comment: NOTE: eGFR is not calculated [...] MD LABORATORY Final Result Performing Organization Address [facility] Co de Phone Number [facility] [address] [place] [address], [place] [phone] * (ABNORMAL) D-DIMER, QUANTITATIVE (02/03/2025 10:35 AM CDT) D-DIMER 627(H) 0 - 500 ng{FEU}/mL 02/03/2025 10:59 AM CDT [facility] Comment: D-Dimer values less than or [...] MD LABORATORY Final Result Performing Organization Address [facility] Co de Phone Number [facility] [address] [place] [address], [place] [phone] * (ABNORMAL) CBC W/DIFF AUTOMATED (02/03/2025 10:35 AM CDT) [facility] WBC 7.65 4.4 - 11.0 x10'3/uL 02/03/2025 10:47 AM CDT [facility] RBC 5.01 4.50 - 5.10 x10'6/uL 02/03/2025 10:47 AM CDT [facility] HGB 13.7 12.3 - 15.3 G/DL 02/03/2025 10:47 AM CDT [facility] HCT 43.2 35.9 - 44.6 % 02/03/2025 10:47 AM CDT [facility] MCV 86.2 80.0 - 96.0 FL 02/03/2025 10:47 AM CDT [facility] MCH 27.3 25.3 - 30.9 PG 02/03/2025 10:47 AM CDT [facility] MCHC 31.7 31.0 - 34.1 G/DL 02/03/2025 10:47 AM CDT [facility] RDW 13.9 12.4 - 15.1 % 02/03/2025 10:47 AM T [facility] PLT 258 151 - 353 x10'3/uL 02/03/2025 10:47 AM T [facility] MPV 9.3(L) 9.6 - 12.0 FL 02/03/2025 10:47 AM T [facility] RBC MORPHOLOGY NORMAL 02/03/2025 10:47 AM CDT [facility] PLT MORPH. NORMAL 02/03/2025 10:47 AM T [facility] WBC MORPHOLOGY NORMAL 02/03/2025 10:47 AM CDT [facility] LYMPHOCYTES % 25.6 15.8 - 45.0 % 02/03/2025 10:47 AM CDT [facility] NEUTROPHILS % 61.1 42.1 - 71.9 % 02/03/2025 10:47 AM CDT [facility] MONOCYTES % 7.8 5.7 - 12.5 % 02/03/2025 10:47 AM CDT [facility] EOSINOPHILS 3.7 0.0 - 5.6 % 02/03/2025 10:47 AM CDT [facility] BASOPHILS 0.9 0.0 - 1.3 % 02/03/2025 10:47 AM CDT [facility] ABS. NEUTROPHILS 4.67 1.40 - 6.00 x10'3/uL 02/03/2025 10:47 AM CDT [facility] IMMATURE GRANS % 0.9(H) 0.0 - 0.5 % 02/03/2025 10:47 AM CDT [facility] ABS. LYMPHOCYTES 1.96 0.80 - 4.70 x10'3/uL 02/03/2025 10:47 AM CDT [facility] 02/03/2025 10:3 5 AM CDT us Clarisa Lang MD LABORATORY Final Result [facility] [address] [place] [phone], * TROPONIN, QUANT (02/03/2025 10:35 AM CDT) TROPONIN I HIGH SENSITIVITY 5 0 - 50 ng/L 02/03/2025 11:06 AM CDT [facility] Comment: HIGH DOSES OF BIOTIN, TROPONIN-SPECIFIC AUTOANTIBODIES, AND ANTIBODY THERAPY CONTAINING HAMA MAY INTERFERE WITH THIS TEST RESULT. CORRELATION TO CLINICAL HISTORY AND PRESENTATION RECOMMENDED. 02/03/2025 10:3 5 AM CDT us Clarisa aLng MD LABORATORY Final Result [facility] [address] [place] [address], [place] [phone] * MAGNESIUM (02/03/2025 10:35 AM CDT) MAGNESIUM 2.0 1.8 - 2.4 MG/DL 02/03/2025 11:07 AM CDT [facility] 02/03/2025 10:3 5 AM CDT us Clarisa Lang MD LABORATORY Final Result Performing Organization Address [facility] Co de Phone Number [facility] [address] [place] [address], [place] [phone] * LIPASE (02/03/2025 10:35 AM CDT) LIPASE 17 16 - 77 UNITS/L 02/03/2025 11:07 AM CDT [facility] 02/03/2025 10:3 5 AM CDT us Clarisa Lang MD LABORATORY Final Result Performing Organization Address City/[facility]/ZIP Co de Phone Number [facility] [address] [place] [address], [place] [phone] * Cytopath Cerv/Vag Thin Layer (12/12/2024 12:00 AM CDT) THIN PREP PAP [facility] [address] [place] [address] Department of Pathology Pathology Report CERVICAL/VAGINAL PAP SMEAR REPORT Name: COATESLUTHER Age: 11 1965 (Age: 59) Location: [facility] Sex: F Collected Date: 12/12/2024 Hospital #: [id number] Date Received: 12/16/2024 Date Reported: 12/17/2024 Provider: [...] is not effective in detecting cervical adenocarcinoma. [facility] 12/12/2024 12/16/2024 7:4 7 AM CDT Comment:CERVICAL/ENDOCERVICA L us Mouna Castro [facility] PATHOLOGY/CYTOLOGY ORDER ALBA Final Result [facility] [address] [place] [address], * (ABNORMAL) HEMOGLOBIN, GLYCOSYLATED (10/24/2024 10:15 AM CDT) HGB A1C 6.1(H) <5.7 % 10/24/2024 1:10 PM CDT [facility] Comment: INCREASED RISK OF DIABETES <5.7% NON-DIABETES 5.7-6.4% INCREASED RISK FOR FUTURE DIABETES > OR = 6.5 CONSISTENT WITH DIABETES STANDARDS OF MEDICAL CARE IN DIABETES-2010 DIABETES CARE, 33(SUPP 1): S1-S61,2009 ESTIMATED AVG GLUCOSE 128 mg/dL 10/24/2024 1:10 PM CDT [facility] 10/24/2024 10:1 5 AM CDT Mouna Chioma Castro ASSEMBLY MACHINE FEEDER- LABORATORY Final Re sult [facility] [address] [place] [phone], * (ABNORMAL) LIPID PANEL (10/24/2024 10:15 AM CDT) CHOLESTEROL 182 <200.0 MG/DL 10/24/2024 1:15 PM CDT [facility] TRIGLYCERIDES 214(H) <150 MG/DL 10/24/2024 1:15 PM CDT [facility] HDL 40(L) >40.0 MG/DL 10/24/2024 1:15 PM T [facility] LDL (CALCULATED) 99 <100 MG/DL 10/24/2024 1:15 PM CDT [facility] NON HDL CHOLESTEROL 142(H) <130 MG/DL 10/24/2024 1:15 PM T [facility] CHOL/HDL RATIO 4.6(H) 0.0 - 4.5 10/24/2024 1:15 PM T [facility] VLDL CALCULATION 43 5 - 55 MG/DL 10/24/2024 1:15 PM T [facility] LIPID INTERPRETATION 10/24/2024 1:15 PM T [facility] Comment: NIH CONCENSUS REPORT RECOMMENDATIONS: ADULT CHILD LOW RISK: CHOLESTEROL <200 <170 TRIGLYCERIDE <150 --- HDL >=60 --- LDL <100 <110 BORDERLINE: CHOLESTEROL 200-239 170-199 TRIGLYCERIDE 150-199 --- HDL 40-59 --- LDL 100-159 110-129 HIGH RISK: CHOLESTEROL >=240 >=200 TRIGLYCERIDE >=200 --- HDL <40 --- LDL >=160 >=130 10/24/2024 10:1 5 AM CDT Mouna Chioma Castro ASSEMBLY MACHINE FEEDER-BC LABORATORY Final Re sult [facility] [address] [place] [address], [place] [phone] * COLONOSCOPY/EGD (06/21/2019) Documents Scanned SCANNING Final Result * HEPATITIS PANEL,ACUTE (04/18/2019 10:07 AM CDT) HEPATITIS B SURFACE AG NON-REACTI VE NON-REACTI VE 04/18/2019 12:25 PM CDT [facility] HEP B CORE IGM NON-REACTI VE NON-REACTI VE 04/18/2019 12:25 PM CDT [facility] HAV IGM NON-REACTI VE NON-REACTI VE 04/18/2019 12:25 PM CDT [facility] HEPATITIS C AB NON-REACTI VE NON-REACTI VE 04/18/2019 12:25 PM CDT [facility] 04/18/2019 10:0 7 AM CDT Linda Matute NP LABORATORY Final Result [facility] [address] [place] [address], [place] [phone] * MG SCREENING W WILLIE JEFFERSON DIGI [...] microcalcification, or architectural distortion. us Es Lazcano PLASTER MODEL AND MOLD MAKER MAMMO Final Resul t * HPV MRNA E6/E7 (09/03/2018 9:23 PM DIRECTOR OF EMPLOYEE DEVELOPMENT) HPV MRNA E6/E7 Not Detected NOT DETECTED 09/06/2018 8:12 AM DIRECTOR OF EMPLOYEE DEVELOPMENT [employer] STEFANIA OTTO Comment: This test was performed using the APTIMA(R) HPV Assay([employer]This assay detects E6/E7 viral messenger RNA (mRNA)from 14 high-risk HPV types (16,18,31,33,35,39,45,51,52,56,58,59,66,68).For additional information please refer to:http://education.[facility]/faq/RJL512l9(This link is being provided for informational/educational purposes only.)The analytical performance characteristics of thisassay have been determined by [place]. The modificationshave not been cleared or approved by the FDA. Thisassay has been validated pursuant to the CLIAregulations and is used for clinical purposes.Test Performed by [facility],[address] [place] [address] [id number] Sheridan M.D., Ph.D., Director of [phone], CLIA [id number] FLUID SPECIMEN / Unknown 09/03/2018 9:23 PM DIRECTOR OF EMPLOYEE DEVELOPMENT 09/03/2018 9:23 PM DIRECTOR OF EMPLOYEE DEVELOPMENT us Generic Conversion Md [facility] PATHOLOGY/CYTOLOGY ARTHUR MARKS Final Result [employer] [address] , from Last 3 Months or Most Recently Relevant to Health Maintenance Insurance [employer] Care Teams Orthodontic Lab Technician Relationship Specialty [place] [address] [address] PCP - General INTERNAL MEDICINE 01/17/25
--- OUTSIDE RECORDS SUMMARY | 2025-02-04 10:57 | XMS_ITS | Encounter Summary ---
Author Organization [facility] Address [facility] [place] [address] Care Team Providers Care Dermatology Teacher Name Role Phone Es Lazcano OVERNIGHT CAREGIVER Primary Care Provider Unav ailable Vidhya Baptiste [facility] Primary Care Provider + Angela Olguin OVERNIGHT CAREGIVER Primary Care Provider [phone] Gloria Castro [facility] Primary Care Provider + Freddie Zepeda MD Primary Care Provider [phone] Encounter Details Date Type Department Care Team (Late st Contact Info) Description 03/10/2021 Thumbt Message Enc [facility] Medical Group Family & Internal Medicine [facility] [address] [place] [address] Vidhya Baptiste [facility] [address] [place] [phone] RE: Question Social History Tobacco Use Types [...] Sex Assigned at Female 08/03/2018 9:44 AM DIXONAC OPERATOR Legal Sex Female 7:04 PM CDT Gender Identity Female 08/03/2018 9:44 AM DIXONAC OPERATOR Sexual Orientation Straight 08/02/2018 9: 02 AM DIXONAC OPERATOR Occupation Industry Job Start Date Job End [...] Description 03/16/2025 11:20 AM CDT Office Visit [facility] Medical Group Family & Internal Medicine [place] [phone] [place] [address] [address] documented as of this encounter Visit Diagnoses Not on filedocumented in this encounter Additional Health Concerns Infection Onset Date Last Indicated Resolved Time COVID-19 Rule Out 05/16/2023 05/16/2023 05/16/2023 10:09 AM DIXONAC OPERATOR Influenza - Seasonal 05/16/2023 05/16/2023 023 12:32 AM DIXONAC OPERATOR Assessment Noted Time PHQ-9 Depression Total Score: 11 021 7:28 AM CDT documented as of this encounter Care Teams Dermatology Teacher Relationship Specialty Start Date End Date Es Lazcano NP PCP - General NURSE PRACTITIONER 08/02/18 07/25/21 Vidhya Baptiste FNP- PCP - General Nurse Practitioner Family 07/26/21 [place] [address] [place] [address] PCP - General Nurse Practitioner Family 04/23/2309/07 Gloria Castro, [facility]- [address], [address] [place] [address] PCP - General Nurse Practitioner Family 09/30/2401/06 [place] [address] [place] [address] PCP - General INTERNAL MEDICINE 01/17/25 documented as of this encounter
--- OUTSIDE RECORDS SUMMARY | 2025-02-04 10:57 | XMS_ITS | Encounter Summary ---
Author Organization [facility] Address [facility] [place] [address] Care Team Providers Care Power Cleaner Operator Name Role Phone Angela Olguin NP Primary Care Provider [phone] Gloria Castro [facility] Primary Care Provider + Freddie Zepeda MD Primary Care Provider [phone] Encounter Details Date Type Department Care Team (Late st Contact Info) Description 04/11/2024 Xlumenat Message Enc [facility] Medical Group [facility] [address] [place] [address] [place] [id number] [place] [address] [place] Social History Tobacco Use Types [...] Sex Assigned at Female 08/03/2018 9:44 AM CREW LEADER GLUING Legal Sex Female 7:04 PM CDT Gender Identity Female 08/03/2018 9:44 AM CREW LEADER GLUING Sexual Orientation Straight 08/02/2018 9: 02 AM CREW LEADER GLUING 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 Plan of Treatment Upcoming Encounters Date Type Department Care Team (Late st Contact Info) Description 03/16/2025 11:20 AM CDT Office Visit [facility] Medical Group [facility] [address] [place] [address] [place] [address] [facility] [address] [place] [phone] documented as of this encounter Visit Diagnoses Not on filedocumented in this encounter Additional Health Concerns Assessment Noted Time PHQ-9 Depression Total Score: 0 07/16/19 24 7:38 AM CREW LEADER GLUING documented as of this encounter Care Teams Power Cleaner Operator Relationship Specialty Start [place] [address] [facility] [address] [facility] [place] [address] PCP - General Nurse Practitioner Family 04/23/2309/07 Gloria Castro, STORAGE SPECIALIST- [address] [facility], [address] [place] [address] PCP - General Nurse Practitioner Family 09/30/2401/06 [place] [address] [facility] [address] [place] [address] PCP - General INTERNAL MEDICINE 01/17/25 documented as of this encounter
--- OUTSIDE RECORDS SUMMARY | 2025-02-04 10:57 | XMS_ITS | Encounter Summary ---
Author Organization [facility] Address [address] [place] [address] Care Team Providers Care Perinatal Coordinator Name Role Phone Gloria Castro [facility] Primary Care Provider + Freddie Zepeda MD Primary Care Provider [phone] Encounter Details Date Type Department Care Team (Late st Contact Info) Description 12/18/2024 Results Follow-Up [facility] 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 Plan of Treatment Upcoming Encounters Date Type Department Care Team (Late st Contact Info) Description 03/16/2025 11:20 AM CDT Office Visit [facility] Medical Group Family & Internal Medicine [facility] [address] [place] [address] [place] [address] [facility] [employer] [address] [place] [address] documented as of this encounter Visit Diagnoses Not on filedocumented in this encounter Additional Health Concerns Assessment Noted Time PHQ-9 Depression Total Score: 3 12/05/19 9:09 AM CDT documented as of this encounter Care Teams Perinatal Coordinator Relationship Specialty Start Date End Date Gloria Castro, DAMAGE AP[employer]AISER- [address] [facility], [address] [address] PCP - General Nurse Practitioner Family 09/30/2401/06 [place] [address] [facility] [address] [place] [address] PCP - General INTERNAL MEDICINE 01/17/25 documented as of this encounter
--- OUTSIDE RECORDS SUMMARY | 2025-02-04 10:57 | XMS_ITS | Encounter Summary ---
Author Organization [facility] Address [facility] [place] [address] Care Team Providers Care Staffing Specialist Name Role Phone Vidhya Baptiste [facility] Primary Care Provider + Angela Olguin NP Primary Care Provider [phone] Gloria Castro [facility] Primary Care Provider + Freddie Zepeda MD Primary Care Provider [phone] Encounter Details Date Type Department Care Team (Late st Contact Info) Description 10/21/2021 MyCSetMeUpt Message Enc [facility] Medical Group Family & Internal Medicine [facility] [address] [place] [address] Vidhya Baptiste [facility] [address] [place] [phone] Eugenia Social History Tobacco Use Types Packs/Day [...] Sex Assigned at Female 08/03/2018 9:44 AM SKIDDER LOADER Legal Sex Female 7:04 PM CDT Gender Identity Female 08/03/2018 9:44 AM SKIDDER LOADER Sexual Orientation Straight 08/02/2018 9: 02 AM SKIDDER LOADER Occupation Industry Job Start Date Job End [...] CENTER Medical Group Family & Internal Medicine [address] [address] Freddie Zepeda MD [address] [place] [address] documented as of this encounter Visit Diagnoses Not on filedocumented in this encounter Additional Health Concerns Infection Onset Date Last Indicated Resolved Time COVID-19 Rule Out 05/16/2023 05/16/2023 05/16/2023 10:09 AM SKIDDER LOADER Influenza - Seasonal 05/16/2023 05/16/2023 023 12:32 AM SKIDDER LOADER Assessment Noted Time PHQ-9 Depression Total Score: 9 07/30/19 22 12:32 PM SKIDDER LOADER documented as of this encounter Care Teams Staffing Specialist Relationship Specialty Start Date End Date Vidhya Baptiste FNP-JONE PCP - General Nurse Practitioner Family 07/26/21 [place] [address] [place] [address] PCP - General Nurse Practitioner Family 04/23/2309/07 Gloria Castro, [facility] [address], [address] [place] [address] PCP - General Nurse Practitioner Family 09/30/2401/06 [place] [address] [address] [place] [address] PCP - General INTERNAL MEDICINE 01/17/25 documented as of this encounter
--- OUTSIDE RECORDS SUMMARY | 2025-02-04 10:57 | XMS_ITS | Encounter Summary ---
Author Organization [facility] Address [address] [place] [address] Care Team Providers Care Family Life Educator Name Role Phone [facility] Primary Care Provider + Freddie Zepeda MD Primary Care Provider [phone] Encounter Details Date Type Department Care Team (Late st Contact Info) Description 09/30/[address] 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 Medical Group Family & Internal Medicine [facility] [address] [place] [address] [place] [address] [facility] [employer] [address] [place] [address] documented as of this encounter Visit Diagnoses Not on filedocumented in this encounter Additional Health Concerns Assessment Noted Time PHQ-9 Depression Total Score: 0 07/16/19 24 7:38 AM GED INSTRUCTOR documented as of this encounter Care Teams Family Life Educator Relationship Specialty Start Date End Date Gloria Castro, [employer]- [address] [facility], [address] [place] [address] PCP - General Nurse Practitioner Family 09/30/2401/06 [place] [address] [facility] [employer] [address] [place] [address] PCP - General INTERNAL MEDICINE 01/17/25 documented as of this encounter
--- OUTSIDE RECORDS SUMMARY | 2025-02-04 10:57 | XMS_ITS | Encounter Summary ---
Author Organization [facility] Address [address] [place] [address] Care Team Providers Care Parks And Recreation Manager Name Role Phone Vidhya Baptiste [facility] Primary Care Provider + Angela Olguin NP Primary Care Provider [phone] Gloria Castro [facility] Primary Care Provider + Freddie Zepeda MD Primary Care Provider [phone] Encounter Details Date Type Department Care Team (Late st Contact Info) Description 05/23/2022 Share0 Message Enc [facility] Medical Group Family & Internal Medicine [address] [address] [facility]ill & appointment Social History Tobacco [...] Sex Assigned at Female 08/03/2018 9:44 AM SCAN COORDINATOR Legal Sex Female 7:04 PM CDT Gender Identity Female 08/03/2018 9:44 AM SCAN COORDINATOR Sexual Orientation Straight 08/02/2018 9: 02 AM SCAN COORDINATOR 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 No / Unsure 05/25/2022 9:30 AM SCAN COORDINATOR documented as of this encounter Plan of Treatment Upcoming Encounters Date Type Department Care Team (Late st Contact Info) Description 03/16/2025 11:20 AM CDT Office Visit [facility] Medical Group [facility] [address] [place] [address] [place] [address] [place] [phone] documented as of this encounter Visit Diagnoses Not on filedocumented in this encounter Additional Health Concerns Infection Onset Date Last Indicated Resolved Time COVID-19 Rule Out 05/16/2023 05/16/2023 05/16/2023 10:09 AM SCAN COORDINATOR Influenza - Seasonal 05/16/2023 05/16/2023 023 12:32 AM SCAN COORDINATOR Assessment Noted Time PHQ-9 Depression Total Score: 9 07/30/19 22 12:32 PM SCAN COORDINATOR documented as of this encounter Care Teams Parks And Recreation Manager Relationship Specialty Start Date End Date Vidhya Baptiste FNP-BC PCP - General Nurse Practitioner Family 07/26/21 [place] [address] [facility] [address] [facility] [place] [address] PCP - General Nurse Practitioner Family 04/23/23 3/10/31 Gloria Castro, [facility]- [address], [address] [place] [address] PCP - General Nurse Practitioner Family 09/30/2401/06 [place] [address] [address] [place] [address] PCP - General INTERNAL MEDICINE 01/17/25 documented as of this encounter
--- OUTSIDE RECORDS SUMMARY | 2025-02-04 10:57 | XMS_ITS | Encounter Summary ---
Author Organization [facility] Address [facility] [place] [address] Care Team Providers Care Creative Technologist Name Role Phone Vidhya Baptiste [facility] Primary Care Provider + Angela Olguin NP Primary Care Provider [phone] Gloria Castro [facility] Primary Care Provider + Freddie Zepeda MD Primary Care Provider [phone] Encounter Details Date Type Department Care Team (Late st Contact Info) Description 05/23/2022 Correlated Magnetics Research Message Enc [facility] Medical Group Family & Internal Medicine [facility] [address] [place] [address] [facility] Video visit Social History Tobacco [...] Sex Assigned at Female 08/03/2018 9:44 AM PRODUCTION LEADER Legal Sex Female 7:04 PM CDT Gender Identity Female 08/03/2018 9:44 AM PRODUCTION LEADER Sexual Orientation Straight 08/02/2018 9: 02 AM PRODUCTION LEADER 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 No / Unsure 05/25/2022 9:30 AM PRODUCTION LEADER documented as of this encounter Plan of Treatment Upcoming Encounters Date Type Department Care Team (Late st Contact Info) Description 03/16/2025 11:20 AM CDT Office Visit [facility] Medical Group Family & Internal Medicine [address] [phone] [place] [address] [address] documented as of this encounter Visit Diagnoses Not on filedocumented in this encounter Additional Health Concerns Infection Onset Date Last Indicated Resolved Time COVID-19 Rule Out 05/16/2023 05/16/2023 05/16/2023 10:09 AM PRODUCTION LEADER Influenza - Seasonal 05/16/2023 05/16/2023 023 12:32 AM PRODUCTION LEADER Assessment Noted Time PHQ-9 Depression Total Score: 9 07/30/19 22 12:32 PM PRODUCTION LEADER documented as of this encounter Care Teams Creative Technologist Relationship Specialty Start Date End Date Vidhya Baptiste FNP-BC PCP - General Nurse Practitioner Family 07/26/21 [place] [address] [facility] Suite [facility] [place] [address] PCP - General Nurse Practitioner Family 04/23/23 310/31 Gloria Castro, [facility]- [address], [address] [place] [address] PCP - General Nurse Practitioner Family 09/30/2401/06 [place] [address] [address] [place] [address] PCP - General INTERNAL MEDICINE 01/17/25 documented as of this encounter
--- OUTSIDE RECORDS SUMMARY | 2025-02-04 10:57 | XMS_ITS | Encounter Summary ---
Author Organization [facility] Address [facility] [place] [address] Care Team Providers Care Maintenance Painter Apprentice Name Role Phone Vidhya Baptiste [facility] Primary Care Provider + Angela Olguin NP Primary Care Provider [phone] Gloria Castro [facility] Primary Care Provider + Freddie Zepeda MD Primary Care Provider [phone] Encounter Details Date Type Department Care Team (Late st Contact Info) Description 10/03/2021 MyCMultichannelt Message Enc [facility] Medical Group Family & Internal Medicine [facility] [address] [place] [address] Vidhya Baptiste [facility] [address] [place] [phone] [place] paper work Social History Tobacco Use Types [...] Sex Assigned at Female 08/03/2018 9:44 AM BALLOON DESIGN PRINTER Legal Sex Female 7:04 PM CDT Gender Identity Female 08/03/2018 9:44 AM BALLOON DESIGN PRINTER Sexual Orientation Straight 08/02/2018 9: 02 AM BALLOON DESIGN PRINTER Occupation Industry Job Start Date Job End [...] Description 03/16/2025 11:20 AM CDT Office Visit [facility] Medical Group Family & Internal Medicine [address] [address] [place] [address] [place] [address] documented as of this encounter Visit Diagnoses Not on filedocumented in this encounter Additional Health Concerns Infection Onset Date Last Indicated Resolved Time COVID-19 Rule Out 05/16/2023 05/16/2023 05/16/2023 10:09 AM BALLOON DESIGN PRINTER Influenza - Seasonal 05/16/2023 05/16/2023 023 12:32 AM BALLOON DESIGN PRINTER Assessment Noted Time PHQ-9 Depression Total Score: 9 07/30/19 22 12:32 PM BALLOON DESIGN PRINTER documented as of this encounter Care Teams Maintenance Painter Apprentice Relationship Specialty Start Date End Date Vidhya Baptiste FNP-BC PCP - General Nurse Practitioner Family 07/26/21 [place] [address] [facility] [address] [address] PCP - General Nurse Practitioner Family 04/23/2309/07 Gloria Castro, [facility] [address], [address] [place] [address] PCP - General Nurse Practitioner Family 09/30/2401/06 [place] [address] [address] [place] [address] PCP - General INTERNAL MEDICINE 01/17/25 documented as of this encounter
--- OUTSIDE RECORDS SUMMARY | 2025-02-04 10:57 | XMS_ITS | Encounter Summary ---
Author Organization [facility] Address [facility] [place] [address] Care Team Providers Care Environmental Permitting Specialist Name Role Phone Es Lazcano NUT ORCHARDIST Primary Care Provider Unav ailable Vidhya Baptiste [facility] Primary Care Provider + Angela Olguin NUT ORCHARDIST Primary Care Provider [phone] Gloria Castro [facility] Primary Care Provider + Freddei Zepeda MD Primary Care Provider Encounter Details Date Type Department Care Team (Late st Contact Info) Description 10/03/2019 [employer] [facility] Patient Accounts [address] [place], [place] [id number] 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 Plan of Treatment Upcoming Encounters Date Type Department Care Team (Late st Contact Info) Description 03/16/2025 11:20 AM CDT Office Visit [facility] Medical Group Family & Internal Medicine [facility] [address] [place] [address] [place] [address] [facility] [employer] [address] [place] [address] documented as of this encounter Visit Diagnoses Not on filedocumented in this encounter Additional Health Concerns Infection Onset Date Last Indicated Resolved Time COVID-19 Rule Out 09/11/2020 09/11/2020 09/11/2020 10:00 AM STATE ATTORNEY COVID-19 Rule Out 05/16/2023 05/16/2023 05/16/2023 10:09 AM STATE ATTORNEY Influenza - Seasonal 05/16/2023 05/16/2023 023 12:32 AM STATE ATTORNEY documented as of this encounter Care Teams Environmental Permitting Specialist Relationship Specialty Start Date End Date Es Lazcano NP PCP - General NURSE PRACTITIONER 08/02/18 07/25/21 Vidhya Baptiste, [facility]- PCP - General Nurse Practitioner Family 07/26/21 [place] [address] [facility] [employer] [address] [address] PCP - General Nurse Practitioner Family 04/23/23 3/10/31 Gloria Castro, [facility]- [address], [address] [place] [address] PCP - General Nurse Practitioner Family 09/30/2401/06 [place] [address] [address] [place] [address] PCP - General INTERNAL MEDICINE 01/17/25 documented as of this encounter
--- OUTSIDE RECORDS SUMMARY | 2025-02-04 10:57 | XMS_ITS | Encounter Summary ---
Author Organization [facility] Address [facility] [place] [address] Care Team Providers Care Admissions Nurse Name Role Phone Vidhya Baptiste [facility] Primary Care Provider + Angela Olguin NP Primary Care Provider [phone] Gloria Castro [facility] Primary Care Provider + Freddie Zepeda MD Primary Care Provider [phone] Encounter Details Date Type Department Care Team (Late st Contact Info) Description 07/29/2021 MyCWatchwitht Message Enc [facility] Family & Internal Medicine [facility] [address] [place] [address] Vidhya Baptiste [facility] [address] [place] [phone] My anxiety and depression Social History Tobacco [...] Sex Assigned at Female 08/03/2018 9:44 AM SUPERINTENDENT PIPELINES Legal Sex Female 7:04 PM CDT Gender Identity Female 08/03/2018 9:44 AM SUPERINTENDENT PIPELINES Sexual Orientation Straight 08/02/2018 9: 02 AM SUPERINTENDENT PIPELINES 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 No / Unsure 07/26/2021 6:54 AM SUPERINTENDENT PIPELINES documented as of this encounter Plan of Treatment Upcoming Encounters Date Type Department Care Team (Late st Contact Info) Description 03/16/2025 11:20 AM CDT Office Visit [facility] Family & Internal Medicine [facility] [address] [place] [address] [place] [address] [address] documented as of this encounter Visit Diagnoses Not on filedocumented in this encounter Additional Health Concerns Infection Onset Date Last Indicated Resolved Time COVID-19 Rule Out 05/16/2023 05/16/2023 05/16/2023 10:09 AM SUPERINTENDENT PIPELINES Influenza - Seasonal 05/16/2023 05/16/2023 023 12:32 AM SUPERINTENDENT PIPELINES Assessment Noted Time PHQ-9 Depression Total Score: 11 021 7:28 AM CDT documented as of this encounter Care Teams Admissions Nurse Relationship Specialty Start Date End Date Vidhya Baptiste FNP-BC PCP - General Nurse Practitioner Family 07/26/21 Angela Olguin [place] [address] [place] [address] [address] [place] [address] PCP - General Nurse Practitioner Family 04/23/2309/07 Gloria Castro [facility]- [address], [address] [place] [address] PCP - General Nurse Practitioner Family 09/30/2401/06 [place] [address] [place] [address] PCP - General INTERNAL MEDICINE 01/17/25 documented as of this encounter
--- OUTSIDE RECORDS SUMMARY | 2025-02-04 10:57 | XMS_ITS | Encounter Summary ---
Author Organization [facility] Address [facility] [place] [address] Care Team Providers Care Mechanic Welder Name Role Phone Es Lazcano SIDE FRAMER Primary Care Provider Unav ailable Vidhya Baptiste [facility] Primary Care Provider + Angela Olguin SIDE FRAMER Primary Care Provider [phone] Gloria Castro [facility] Primary Care Provider + Freddie Zepeda MD Primary Care Provider [phone] Encounter Details Date Type Department Care Team (Late st Contact Info) Description 07/29/2020 MyCOmiciat Message Enc [facility] Family & Internal Medicine [facility] [address] [place] [address] Es Lazcano NP RE: Other [...] Sex Assigned at Female 08/03/2018 9:44 AM SPECIAL CLASS WELDER Legal Sex Female 7:04 PM CDT Gender Identity Female 08/03/2018 9:44 AM SPECIAL CLASS WELDER Sexual Orientation Straight 08/02/2018 9: 02 AM SPECIAL CLASS WELDER 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 Plan of Treatment Upcoming Encounters Date Type Department Care Team (Late st Contact Info) Description 03/16/2025 11:20 AM CDT Office Visit [facility] Family & Internal Medicine [facility] [address] [place] [address] [place] [address] [address] documented as of this encounter Visit Diagnoses Not on filedocumented in this encounter Additional Health Concerns Infection Onset Date Last Indicated Resolved Time COVID-19 Rule Out 09/11/2020 09/11/2020 09/11/2020 10:00 AM SPECIAL CLASS WELDER COVID-19 Rule Out 05/16/2023 05/16/2023 05/16/2023 10:09 AM SPECIAL CLASS WELDER Influenza - Seasonal 05/16/2023 05/16/2023 023 12:32 AM SPECIAL CLASS WELDER documented as of this encounter Care Teams Mechanic Welder Relationship Specialty Start Date End Date Es Lazcano NP PCP - General NURSE PRACTITIONER 08/02/18 07/25/21 Vidhya Baptiste [facility]- PCP - General Nurse Practitioner Family 07/26/21 [place] [address] [facility] [address] [facility] [place] [address] PCP - General Nurse Practitioner Family 04/23/23 310/31 Gloria Castro, [employer]- [address], [address] [place] [address] PCP - General Nurse Practitioner Family 09/30/2401/06 [place] [address] [place] [address] PCP - General INTERNAL MEDICINE 01/17/25 documented as of this encounter
--- OUTSIDE RECORDS SUMMARY | 2025-02-04 10:57 | XMS_ITS | Encounter Summary ---
Author Organization [facility] Address [facility] [place] [address] Care Team Providers Care Rotary Veneer Machine Operator Name Role Phone Vidhya Baptiste [facility] Primary Care Provider + Angela Olguin NP Primary Care Provider [phone] Gloria Castro [facility] Primary Care Provider + Freddie Zepeda MD Primary Care Provider [phone] Encounter Details Date Type Department Care Team (Late st Contact Info) Description 07/30/2021 MyCKalidot Message Enc [facility] Family & Internal Medicine [facility] [address] [place] [address] Vidhya Baptiste [facility] [address] [place] [address] Anxiety and depression cont. 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 No / Unsure 07/26/2021 6:54 AM PORTFOLIO CONSULTANT documented as of this encounter Plan of Treatment Upcoming Encounters Date Type Department Care Team (Late st Contact Info) Description 03/16/2025 11:20 AM CDT Office Visit [facility] Family & Internal Medicine [facility] [address] [place] [address] [place] [address] [address] documented as of this encounter Visit Diagnoses Not on filedocumented in this encounter Additional Health Concerns Infection Onset Date Last Indicated Resolved Time COVID-19 Rule Out 05/16/2023 05/16/2023 05/16/2023 10:09 AM PORTFOLIO CONSULTANT Influenza - Seasonal 05/16/2023 05/16/2023 023 12:32 AM PORTFOLIO CONSULTANT Assessment Noted Time PHQ-9 Depression Total Score: 9 07/30/19 22 12:32 PM PORTFOLIO CONSULTANT documented as of this encounter Care Teams Rotary Veneer Machine Operator Relationship Specialty Start Date End Date Vidhya Baptiste FNP-BC PCP - General Nurse Practitioner Family 07/26/21 [place] [address] [facility] [address] [address] PCP - General Nurse Practitioner Family 04/23/2309/07 Gloria Castro [facility]- [address], [address] [place] [address] PCP - General Nurse Practitioner Family 09/30/2401/06 [place] [address] [place] [address] PCP - General INTERNAL MEDICINE 01/17/25 documented as of this encounter
--- OUTSIDE RECORDS SUMMARY | 2025-02-04 10:58 | XMS_ITS | Encounter Summary ---
Author Organization [facility] Address [facility] [place] [address] Care Team Providers Care Pelletising Extruder Operator Name Role Phone Es Lazcano CYLINDER PRESS OPERATOR HELPER Primary Care Provider Unav ailable Vidhya Baptiste [facility] Primary Care Provider + Angela Olguin CYLINDER PRESS OPERATOR HELPER Primary Care Provider [phone] Gloria Castro [facility] Primary Care Provider + Freddie Zepeda MD Primary Care Provider [phone] Encounter Details Date Type Department Care Team (Late st Contact Info) Description 04/08/[address] [facility] Family & Internal Medicine [facility] [address] [place] [address] Vidhya Baptiste [facility] [address] [place] [id number] RE: Question Social History Tobacco Use Types [...] Sex Assigned at Female 08/03/2018 9:44 AM FIRE FIGHTER AIRPORT Legal Sex Female 7:04 PM CDT Gender Identity Female 08/03/2018 9:44 AM [employer]RE [employer]HTER [employer]PORT Sexual Orientation Straight 08/02/2018 9: 02 AM FIRE FIGHTER AIRPORT Occupation Industry Job Start Date Job End [...] 11:20 AM CDT Office Visit [facility] Family & Internal Medicine [address] [address] Freddie Zepeda MD [address] [place] [address] documented as of this encounter Visit Diagnoses Not on filedocumented in this encounter Additional Health Concerns Infection Onset Date Last Indicated Resolved Time COVID-19 Rule Out 05/16/2023 05/16/2023 05/16/2023 10:09 AM FIRE FIGHTER AIRPORT Influenza - Seasonal 05/16/2023 05/16/2023 023 12:32 AM FIRE FIGHTER AIRPORT Assessment Noted Time PHQ-9 Depression Total Score: 11 021 7:28 AM CDT documented as of this encounter Care Teams Pelletising Extruder Operator Relationship Specialty Start Date End Date Es Lazcano NP PCP - General NURSE PRACTITIONER 08/02/18 07/25/21 Vidhya Baptiste FNP-BC PCP - General Nurse Practitioner Family 07/26/21 [place] [address] [place] [address] PCP - General Nurse Practitioner Family 04/23/2309/07 Gloria Castro, [facility]- [address], [address] [place] [address] PCP - General Nurse Practitioner Family 09/30/2401/06 [place] [address] [place] [address] PCP - General INTERNAL MEDICINE 01/17/25 documented as of this encounter
--- OUTSIDE RECORDS SUMMARY | 2025-02-04 10:58 | XMS_ITS | Encounter Summary ---
Author Organization [facility] Address [facility] [place] [address] Care Team Providers Care Lead Java Programmer Name Role Phone Es Lazcano PONY RIDE ATTENDANT Primary Care Provider Unav ailable Vidhya Baptiste [facility] Primary Care Provider + Angela Olguin PONY RIDE ATTENDANT Primary Care Provider [phone] [facility] Primary Care Provider + Freddie Zepeda MD Primary Care Provider [phone] Encounter Details Date Type Department Care Team (Late st Contact Info) Description 04/12/2021 Project Dancet Message Enc [facility] Group Family & Internal Medicine [facility] [address] [place] [address] [facility] [address] [place] [phone] RE: Other Social History Tobacco Use Types [...] Sex Assigned at Female 08/03/2018 9:44 AM LABORATORY TECHNOLOGY TEACHER Legal Sex Female 7:04 PM CDT Gender Identity Female 08/03/2018 9:44 AM LABORATORY TECHNOLOGY TEACHER Sexual Orientation Straight 08/02/2018 9: 02 AM LABORATORY TECHNOLOGY TEACHER Occupation Industry Job Start Date Job End [...] [facility] Medical [facility] Family & Internal Medicine [address] [address] Freddie Zepeda MD [address] [place] [address] documented as of this encounter Visit Diagnoses Not on filedocumented in this encounter Additional Health Concerns Infection Onset Date Last Indicated Resolved Time COVID-19 Rule Out 05/16/2023 05/16/2023 05/16/2023 10:09 AM LABORATORY TECHNOLOGY TEACHER Influenza - Seasonal 05/16/2023 05/16/2023 023 12:32 AM LABORATORY TECHNOLOGY TEACHER Assessment Noted Time PHQ-9 Depression Total Score: 11 021 7:28 AM CDT documented as of this encounter Care Teams Lead Java Programmer Relationship Specialty Start Date End Date Es Lazcano NP PCP - General NURSE PRACTITIONER 08/02/18 07/25/21 Vidhya Baptiste FNP-BC PCP - General Nurse Practitioner Family 07/26/21 [place] [address] [place] [address] PCP - General Nurse Practitioner Family 04/23/2309/07 Gloria Castro, [facility]- [address], [address] [place] [address] PCP - General Nurse Practitioner Family 09/30/2401/06 [place] [address] [place] [address] PCP - General INTERNAL MEDICINE 01/17/25 documented as of this encounter
--- OUTSIDE RECORDS SUMMARY | 2025-02-04 10:58 | XMS_ITS | Encounter Summary ---
Author Organization [facility] Address [facility] [place] [address] Care Team Providers Care Extended Insurance Clerk Name Role Phone Es Lazcano THREAT MONITORING ANALYST Primary Care Provider Unav ailable Vidhya Baptiste [facility] Primary Care Provider + Angela Olgiun THREAT MONITORING ANALYST Primary Care Provider [phone] Gloria Castro [facility] Primary Care Provider + Freddie Zepeda MD Primary Care Provider [phone] Encounter Details Date Type Department Care Team (Late st Contact Info) Description 03/21/2021 Goodie Goodie App Message Enc [facility] Group Family & Internal Medicine [facility] [address] [place] [address] [facility] Provider Eugenia paperwork Social History Tobacco Use [...] Sex Assigned at Female 08/03/2018 9:44 AM CUPOLA LINER HELPER Legal Sex Female 7:04 PM CDT Gender Identity Female 08/03/2018 9:44 AM CUPOLA LINER HELPER Sexual Orientation Straight 08/02/2018 9: 02 AM CUPOLA LINER HELPER Occupation Industry Job Start Date Job [...] Description 03/16/2025 11:20 AM CDT Office Visit [facility] Family & Internal Medicine [facility] [address] [place] [address] [place] [address] [place] [address] documented as of this encounter Visit Diagnoses Not on filedocumented in this encounter Additional Health Concerns Infection Onset Date Last Indicated Resolved Time COVID-19 Rule Out 05/16/2023 05/16/2023 05/16/2023 10:09 AM CUPOLA LINER HELPER Influenza - Seasonal 05/16/2023 05/16/2023 023 12:32 AM CUPOLA LINER HELPER Assessment Noted Time PHQ-9 Depression Total Score: 11 021 7:28 AM CDT documented as of this encounter Care Teams Extended Insurance Clerk Relationship Specialty Start Date End Date Es Lazcano NP PCP - General NURSE PRACTITIONER 08/02/18 07/25/21 Vidhya Baptiste FNP-JONE PCP - General Nurse Practitioner Family 07/26/21 [place] [address] [place] [address] PCP - General Nurse Practitioner Family 04/23/2309/07 Gloria Castro, [facility]- [address], [address] [place] [address] PCP - General Nurse Practitioner Family 09/30/2401/06 [place] [address] [place] [address] PCP - General INTERNAL MEDICINE 01/17/25 documented as of this encounter
--- OUTSIDE RECORDS SUMMARY | 2025-02-04 10:58 | XMS_ITS | Encounter Summary ---
Author Organization [facility] Address [address] [place] [address] Care Team Providers Care Emergency Vehicle Operator Name Role Phone Freddie Zepeda MD Primary Care Provider Reason for Visit * Reason Comments Breathing Problem Acute having trouble breathing and swollen Encounter Details Date Type Department Care Team (Late st Contact Info) Description 02/03/2025 10:00 AM CDT Office Visit [facility] Group Family & Internal Medicine [facility] [address] [place] [address] Sam Ortiz PA [address] [place] [address] Breathing Problem (Acute having trouble breathing [...] Sex Assigned at Female 08/03/2018 9:44 AM COMPUTER ARCHITECT Legal Sex Female 7:04 PM CDT Gender Identity Female 08/03/2018 9:44 AM COMPUTER ARCHITECT Sexual Orientation Straight 08/02/2018 9: 02 AM COMPUTER ARCHITECT Occupation Industry Job Start Date Job End [...] AM CDT Deonna Oliveros RN Active * Taney Suicide Severity Rating Scale (Screener/Recent Self-Report) Question [...] Description 03/16/2025 11:20 AM CDT Office Visit [facility] Medical Group Family & Internal Medicine [address] [address] [place] [address] [place] [address] documented as of this encounter Visit Diagnoses Not on filedocumented in this encounter Additional Health Concerns Assessment Noted Time PHQ-9 Depression Total Score: 3 12/05/19 25 9:09 AM CDT documented as of this encounter Care Teams Emergency Vehicle Operator Relationship Specialty Start [place] [address] [place] [address] PCP - General INTERNAL MEDICINE 01/17/25 documented as of this encounter
--- OUTSIDE RECORDS SUMMARY | 2025-02-04 10:58 | XMS_ITS | Encounter Summary ---
Author Organization [facility] Address [facility] [place] [address] Care Team Providers Care Spline Rolling Machine Job Setter Name Role Phone Freddie eZpeda MD Primary Care Provider [phone] Reason for Referral * Imaging (Emergency) - New Request Specialty Diagnoses / Procedures Referred By Toni lee Referred To Contact RADIOLOGY Procedures CTA CHEST PE PROTOCOL Clarisa Lang MD [address] [place] [address] Phone: tel: fax: Referral ID Status Reason Start Date Expiration Date V isits Requested Visits Authorized [id number] New Request 02/03/2025 02/03/2026 1 1 Reason for Visit * Reason Comments Shortness Of Breath Chest Pain Edema Encounter Details Date Type Department Care Team (Late st Contact Info) Description 02/03/2025 10:25 AM CDT - 02/03/2025 1:10 PM CDT Emergency [facility] Emergency Room [address] [place] [address] Clarisa Lang MD [address] [place] [address] Shortness Of Breath ; Chest [...] Sex Assigned at Female 08/03/2018 9:44 AM GLUING MACHINE ADJUSTER Legal Sex Female 7:04 PM CDT Gender Identity Female 08/03/2018 9:44 AM GLUING MACHINE ADJUSTER Sexual Orientation Straight 08/02/2018 9: 02 AM GLUING MACHINE ADJUSTER Occupation Industry Job Start Date [...] AM CDT Deonna Oliveros RN Active * [place] Suicide Severity Rating Scale (Screener/Recent Self-Report) Question [...] Care Everywhere. * Obesity Discharge Instructions, Adult (Swazi) * Shortness of Breath (Dyspnea) Discharge Instructions (Swazi) documented in this encounter Medications at Time [...] take 400-800 u daily 10/28/24 Gloria Castro, [facility] PAST MEDICAL HISTORY: Past Medical History[1] PAST [...] encounter of 02/03/25 ECG 12 lead Narrative [facility] Test Date: 2025-02-03 Pat Name: LUTHER COATES Department: 85 Room: EXAM 101 Gender: Female Export Manager: : 1965 Requested By: CLARISA LANG Order Number: [id number] Reading MD: Measurements Intervals [place] Rate: 75 P: -11 MA: 160 QRS: -10 QRSD: 86 T: 40 [...] CHEST PE PROTOCOL Final Result by User, [id number] (02/03 1226) [facility] [address] [place] [address] PROCEDURE: CTA CHEST PE PROTOCOL. HISTORY: Evaluate [...] XR CHEST PORTABLE Final Result by User, [id number] (02/03 1109) [facility] [address] [place] [address] Examination: Chest Radiograph, 1 view Exam Date/Time: [...] POLYPECTOMY performed by Amanuel Gonzales MD at [facility] OR EYE SURGERY two surgeries LASIK Bilateral [...] Description 03/16/2025 11:20 AM CDT Office Visit [facility] Family & Internal Medicine [address] [address] Freddie Zepeda MD [address] [place] [address] Pending Results Name Type Priority Associated [...] CDTThis note is in progress. 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 [address] PROCEDURE: CTA CHEST PE PROTOCOL. HISTORY: Evaluate [...] Note Rose Marie Buenrostro MD - 02/03/2025 [facility] [address] [place] [address] PROCEDURE: CTA CHEST PE PROTOCOL. HISTORY: Evaluate [...] 11:04 AM Narrative 02/03/2025 11:05 AM CDT [facility] [address] [place] [address] Examination: Chest Radiograph, 1 view Exam Date/Time: [...] Procedure Note Dante Muhammad MD - 02/03/2025 [facility] [address] [place] [address] Examination: Chest Radiograph, 1 view Exam Date/Time: [...] - 500 ng{FEU}/mL 02/03/2025 10:59 AM CDT [facility] Comment: D-Dimer values less than [...] us Clarisa Lang MD LABORATORY Final Result [facility] [address] [place] [address], [place] [phone] * PRO-BRAIN NATRIURETIC PEPTIDE (02/03/2025 10:35 AM CDT) PRO-B TYPE NATRIURETIC PEPTIDE 34 <125 PG/ML 02/03/2025 11:07 AM CDT [facility] Comment: CUT POINTS ESTABLISHED BY INTERNATIONAL [...] MD LABORATORY Final Result Performing Organization Address City/[facility]/ZIP Co de Phone Number [facility] [address] [place] [address], [place] [phone] * MAGNESIUM (02/03/2025 10:35 AM CDT) MAGNESIUM 2.0 1.8 - 2.4 MG/DL 02/03/2025 11:07 AM CDT [facility] 02/03/2025 10:3 5 AM CDT us Clarisa Lang MD LABORATORY Final Result [facility] [address] [place] [address], [place] [phone] * TROPONIN, QUANT (02/03/2025 10:35 AM CDT) TROPONIN I HIGH SENSITIVITY 5 0 - 50 ng/L 02/03/2025 11:06 AM CDT [facility] Comment: HIGH DOSES OF BIOTIN, TROPONIN-SPECIFIC AUTOANTIBODIES, AND ANTIBODY THERAPY CONTAINING HAMA MAY INTERFERE WITH THIS TEST RESULT. CORRELATION TO CLINICAL HISTORY AND PRESENTATION RECOMMENDED. 02/03/2025 10:3 5 AM CDT us Clarisa Lang MD LABORATORY Final Result Performing Organization Address City/[facility]/ZIP Co de Phone Number [facility] [address] [place] [address], [place] [phone] * LIPASE (02/03/2025 10:35 AM CDT) Pathologist [facility] LIPASE 17 16 - 77 UNITS/L 02/03/2025 11:07 AM CDT [facility] 02/03/2025 10:3 5 AM CDT us Clarisa Lang MD LABORATORY Final Result Performing Organization Address [facility] Co de Phone Number [facility] [address] [place] [address], [place] [phone] * PROTIME/INR, VENOUS (02/03/2025 10:35 AM CDT) Pathologist [facility] PROTIME 11.4 9.1 - 12.4 SEC 02/03/2025 10:55 AM CDT [facility] INR 1.0 02/03/2025 10:55 AM CDT [facility] Comment: Recommend INR ranges for Oral Anticoagulant Therapy: Mechanical Cardiac Values 2.5-3.5 All others indication 2.0-3.0 02/03/2025 10:3 5 AM CDT us Clarisa Lang MD LABORATORY Final Result Performing Organization Address City/[facility]/ZIP Co de Phone Number [facility] [address] [place] [address], * (ABNORMAL) COMPREHENSIVE METABOLIC PANEL (02/03/2025 10:35 AM CDT) [facility] GLUCOSE 144(H) 70 - 99 MG/DL 02/03/2025 11:07 AM CDT [facility] BUN 14 7 - 18 MG/DL 02/03/2025 11:07 AM CDT [facility] CREATININE S/P/B 0.61 0.55 - 1.02 MG/DL 02/03/2025 11:07 AM CDT [facility] SODIUM S/P/B 139 136 - 145 MMOL/L 02/03/2025 11:07 AM CDT [facility] POTASSIUM S/P/B 4.3 3.5 - 5.1 MMOL/L 02/03/2025 11:07 AM CDT [facility] CHLORIDE S/P/B 103 100 - 108 MMOL/L 02/03/2025 11:07 AM T [facility] CO2 31.1 21 - 32 MMOL/L 02/03/2025 11:07 AM T [facility] CALCIUM S/P/B 8.6 8.5 - 10.1 MG/DL 02/03/2025 11:07 AM T [facility] BILIRUBIN TOTAL S/P/B 0.2 0.2 - 1.2 MG/DL 02/03/2025 11:07 AM T [facility] TOTAL PROTEIN S/P/B 7.3 6.4 - 8.2 G/DL 02/03/2025 11:07 AM T [facility] ALBUMIN S/P/B 3.4 3.4 - 5.0 G/DL 02/03/2025 11:07 AM CDT [facility] AST 37 15 - 37 U/L 02/03/2025 11:07 AM CDT [facility] ALT 40 14 - 55 U/L 02/03/2025 11:07 AM T [facility] ALKALINE PHOSPHATASE S/P/B 163(H) 50 - 136 U/L 02/03/2025 11:07 AM CDT [facility] ANION GAP 4.9(L) 5 - 15 MMOL/L 02/03/2025 11:07 AM CDT [facility] BUN CREATININE RATIO 23.0 6 - 26 02/03/2025 11:07 AM T [facility] A/G RATIO 0.9(L) 1.0 - 2.0 RATIO 02/03/2025 11:07 AM T [facility] GFR ESTIMATE >90 >90 ML/MIN/1.7 3 M2 02/03/2025 11:07 AM T [facility] Comment: NOTE: eGFR is not calculated for patients <18 years of age. This is an estimated GFR calculation using the new CKD EPI creatinine equation without race and so does not require a correction factor for race. This estimated GFR should not be used for calculating drug doses. 02/03/2025 10:3 5 AM CDT us Clarisa Lang MD LABORATORY Final Result [facility] [address] [place] [address], * (ABNORMAL) CBC W/DIFF AUTOMATED (02/03/2025 10:35 AM CDT) WBC 7.65 4.4 - 11.0 x10'3/uL 02/03/2025 10:47 AM CDT [facility] RBC 5.01 4.50 - 5.10 x10'6/uL 02/03/2025 10:47 AM CDT [facility] HGB 13.7 12.3 - 15.3 G/DL 02/03/2025 10:47 AM T [facility] HCT 43.2 35.9 - 44.6 % 02/03/2025 10:47 AM T [facility] MCV 86.2 80.0 - 96.0 FL 02/03/2025 10:47 AM CDT [facility] MCH 27.3 25.3 - 30.9 PG 02/03/2025 10:47 AM T [facility] MCHC 31.7 31.0 - 34.1 G/DL 02/03/2025 10:47 AM T [facility] RDW 13.9 12.4 - 15.1 % 02/03/2025 10:47 AM [facility] PLT 258 151 - 353 x10'3/uL 02/03/2025 10:47 AM T [facility] MPV 9.3(L) 9.6 - 12.0 FL 02/03/2025 10:47 AM T [facility] RBC MORPHOLOGY NORMAL 02/03/2025 10:47 AM T [facility] PLT MORPH. NORMAL 02/03/2025 10:47 AM T [facility] WBC MORPHOLOGY NORMAL 02/03/2025 10:47 AM T [facility] LYMPHOCYTES % 25.6 15.8 - 45.0 % 02/03/2025 10:47 AM T [facility] NEUTROPHILS % 61.1 42.1 - 71.9 % 02/03/2025 10:47 AM T [facility] MONOCYTES % 7.8 5.7 - 12.5 % 02/03/2025 10:47 AM CDT [facility] EOSINOPHILS 3.7 0.0 - 5.6 % 02/03/2025 10:47 AM CDT [facility] BASOPHILS 0.9 0.0 - 1.3 % 02/03/2025 10:47 AM CDT [facility] ABS. NEUTROPHILS 4.67 1.40 - 6.00 x10'3/uL 02/03/2025 10:47 AM CDT [facility] IMMATURE GRANS % 0.9(H) 0.0 - 0.5 % 02/03/2025 10:47 AM CDT [facility] ABS. LYMPHOCYTES 1.96 0.80 - 4.70 x10'3/uL 02/03/2025 10:47 AM CDT [facility] 02/03/2025 10:3 5 AM CDT us Clarisa Lang MD LABORATORY Final Result [facility] [address] [place] [address], documented in this encounter Visit Diagnoses Diagnosis [...] 1057 (Given - Provid er: Alida Bah, [employer]) iopamidol (ISOVUE-370) 76 % injection 80 mL (COMPLETED) 80 mL, Intravenous, IMG once as needed, Contrast, 1 dose, Starting on Sun02/03/25 at 1203, Until Sun02/03/25 at 1205 1205 (Given - Provid er: Gloria Berg, RTR) documented in this encounter Additional Health Concerns Assessment Noted Time PHQ-9 Depression Total Score: 3 12/05/19 25 9:09 AM CDT documented as of this encounter Care Teams Spline Rolling Machine Job Setter Relationship Specialty [place] [address] [facility] [address] [place] [address] PCP - General INTERNAL MEDICINE 01/17/25 documented as of this encounter
--- OUTSIDE RECORDS SUMMARY | 2025-02-04 10:58 | XMS_ITS | Encounter Summary ---
Author Organization [facility] Address [address] [place] [address] Care Team Providers Care Distillation Operator Helper Name Role Phone Freddie Zepeda MD Primary Care Provider [phone] Encounter Details Date Type Department Care Team [...] Sex Assigned at Female 08/03/2018 9:44 AM BUS INFO CONSULTANT Legal Sex Female 7:04 PM CDT Gender Identity Female 08/03/2018 9:44 AM BUS INFO CONSULTANT Sexual Orientation Straight 08/02/2018 9: 02 AM BUS INFO CONSULTANT 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 Functional Status * Calculated C-SSRS Risk Score (Lifetime/Recent) Answer Date of Assessment Author Status No Risk Indicated 02/03/2025 10:38 AM CDT Deonna Oliveros RN Active * [place] Suicide Severity Rating Scale (Screener/Recent Self-Report) Question [...] [facility] Family & Internal Medicine [address] [phone] [place] [address] [phone] documented as of this encounter Visit Diagnoses Not on filedocumented in this encounter Additional Health Concerns Assessment Noted Time PHQ-9 Depression Total Score: 3 12/05/19 25 9:09 AM CDT documented as of this encounter Care Teams Distillation Operator Helper Relationship Specialty [place] [address] [address] PCP - General INTERNAL MEDICINE 01/17/25 documented as of this encounter
[2025-02-04 11:00] VITALS: PULSE 74; RESP 11; O2SAT 93
[2025-02-04 11:05] LABS: Alanine Aminotransferase 53 U/L (6-35); Albumin Level 4.0 g/dL (3.5-5.1); Alkaline Phosphatase 104 U/L (38-126); Anion Gap 10 mmol/L (4-12); Aspartate Amino Transferase 61 U/L (14-36); Bilirubin,Total 0.5 mg/dL (0.2-1.3); Blood Urea Nitrogen 11 mg/dL (7-17); Calcium 9.2 mg/dL (8.4-10.2); Carbon Dioxide 27 mmol/L (22-30); Chloride 101 mmol/L (98-107); Estimated CRCL calculation 121 ml/min; Estimated Glomerular Filt Rate > 60; Glucose 147 mg/dL (65-110); Potassium 4.3 mmol/L (3.4-5.0); Sodium 138 mmol/L (137-145); Total Protein 7.3 g/dL (6.3-8.2)
[2025-02-04 11:45] VITALS: PULSE 77; RESP 15; O2SAT 98
[2025-02-04 11:52] LABS: NT Pro B Type Natriuretic Pept 67 pg/mL (19.9-100)
--- NOTE | 2025-02-04 12:10 | ED.GENADULT ---
HPI - General Adult General Chief complaint: Unspecified Stated complaint: my body is sowllen Time Seen by Provider: 02/04/25 09:55 History of Present Illness HPI narrative: Patient is a 59-year-old female who presents ER with reports of swelling to her entire body. It is also associated with shortness of breath over last few days. Swelling has been ongoing over last couple months. She has been noncompliant with offer home medications with the exception for psychiatric medications. No chest pain or chest pressure. No productive cough. She is unsure if she has orthopnea. No history of heart failure. Reports a 30 lb weight gain. Related Data Home Medications ?Medication ?Instructions ?Recorded ?Confirmed ?Last Taken ?Type albuterol sulfate 90 mcg/actuation inhalation 11/04/19 Unknown History aerosol inhaler atenolol 50 mg tablet 50 mg PO DAILY 11/04/19 Unknown History cholecalciferol (vitamin D3) 50 50 mcg PO DAILY 11/04/19 Unknown History mcg (2,000 unit) capsule citalopram 40 mg tablet 40 mg PO DAILY 11/04/19 Unknown History fenofibrate micronized 134 mg 134 mg PO DAILY 11/04/19 Unknown History capsule hydrochlorothiazide 25 mg tablet 25 mg PO DAILY 11/04/19 Unknown History montelukast 10 mg tablet 10 mg PO DAILY 11/04/19 Unknown History omeprazole 20 mg capsule,delayed 20 mg PO DAILY 11/04/19 Unknown History release valacyclovir 500 mg tablet 500 mg PO DAILY 11/04/19 Unknown History Allergies Allergy/AdvReac Type Severity Reaction Status Date / Time albuterol Allergy Vomiting Verified 02/04/25 09:51 amoxicillin Allergy Itching Verified 02/04/25 09:51 cephalexin Allergy Itching Verified 02/04/25 09:51 ciprofloxacin (From Cipro) Allergy Itching Verified 02/04/25 09:51 clindamycin Allergy Itching Verified 02/04/25 09:51 ipratropium Allergy Itching Verified 02/04/25 09:51 Penicillins Allergy Other Verified 02/04/25 09:51 Hvxvujr-WOD-TvY Reductase Allergy Itching Verified 02/04/25 09:51 Inhibitor (Nwxbdfe-Men-Wwf Reductase Inhibitor) Review of Systems Review of Systems: All systems reviewed & are unremarkable except as noted in HPI and below Constitutional: Constitutional: Reports no additional constitutional complaints Cardiovascular: Cardiovascular: Reports no additional cardiovascular complaints Respiratory: Respiratory: Reports no additional respiratory complaints Gastrointestinal: Gastrointestinal: Reports no additional gastrointestinal complaints Genitourinary: Genitourinary: Reports no additional female genitourinary complaints [facility] Past Medical History Medical History (Updated 02/04/25 @ 13:57 by Ludwig Whitney MD) Hypertension Surgical History Surgical History (Updated 11/04/19 @ 10:02 by Alla Juarez RN) History of eye surgery History of cholecystectomy History of Social History Social History (Updated 11/04/19 @ 10:02 by Alla Juarez RN) Smoking status: Former smoker Tobacco type: cigarettes Alcohol intake: never Exam Narrative: GENERAL: Well-appearing, morbidly obese, and in no acute distress. HEAD: Normocephalic, atraumatic. EYES: Continuous horizontal nystagmus. ENT: Mucous membranes moist. CHEST: Clear to auscultation. No respiratory distress. HEART: Regular rate and rhythm. Normal peripheral pulses. ABDOMEN: Soft, nontender, nondistended. EXTREMITIES: Normal range of motion. 2+ nonpitting edema. SKIN: Warm, dry, no rash. NEURO: Alert and oriented x3. PSYCH: Normal mood and affect. Course Course Emergency Course: No hypoxia with ambulation. Lab work unremarkable. No pulmonary edema. Recommend follow-up with PCP for further treatment evaluation. Vital Signs Vital signs: Vital Signs Temperature 97.3 F L 02/04/25 09:48 Pulse Rate 83 02/04/25 09:48 Respiratory Rate 13 02/04/25 09:48 Blood Pressure 159/82 H 02/04/25 09:48 Pulse Oximetry 96 02/04/25 09:48 Oxygen Delivery Room Air 02/04/25 09:48 Temperature 97.3 F L 02/04/25 09:48 Pulse Rate 86 02/04/25 13:31 Respiratory Rate 18 02/04/25 13:31 Blood Pressure 161/92 H 02/04/25 13:31 Pulse Oximetry 94 02/04/25 13:31 Oxygen Delivery Room Air 02/04/25 09:48 Medical Decision Making Vital Signs Vital Signs: Vital Signs Temperature 97.3 F L 02/04/25 09:48 Pulse Rate 83 02/04/25 09:48 Respiratory Rate 13 02/04/25 09:48 Blood Pressure 159/82 H 02/04/25 09:48 Pulse Oximetry 96 02/04/25 09:48 Oxygen Delivery Room Air 02/04/25 09:48 Temperature 97.3 F L 02/04/25 09:48 Pulse Rate 86 02/04/25 13:31 Respiratory Rate 18 02/04/25 13:31 Blood Pressure 161/92 H 02/04/25 13:31 Pulse Oximetry 94 02/04/25 13:31 Oxygen Delivery Room Air 02/04/25 09:48 Lab Data 02/04/25 10:34 02/04/25 10:34 Labs: Lab Results 02/04/25 Range/Units 10:34 WBC 6.2 (4.5-10.0) K/mm3 RBC 5.02 (4.2-5.4) M/mm3 Hgb 13.5 (12.0-15.0) g/dL Hct 42.6 (37.0-47.0) % MCV 84.9 (80-100) fl MCH 26.9 (26-34) pg MCHC 31.7 L (32-36) g/dl RDW 14.1 (11.5-14.5) % Plt Count 246 (150-375) k/mm3 MPV 9.1 (7.4-10.4) fl Immature Gran % (Auto) 0.8 H (0-0.5) % Neut % (Auto) 65.0 (45.5-73.1) % Lymph % (Auto) 23.5 (18.3-44.2) % Lyman % (Auto) 6.0 (2.6-8.5) % Eos % (Auto) 3.6 (0-4.4) % Baso % (Auto) 1.1 (0.2-1.2) % Lymph # (Auto) 1.45 (0.9-3.2) K/mm3 Lyman # (Auto) 0.4 (0.1-0.6) K/mm3 Eos # (Auto) 0.2 (0-0.3) K/mm3 Baso # (Auto) 0.1 (0.0-0.1) K/mm3 Abs Immat Gran (auto) 0.05 H (0.00-0.031) K/mm3 Absolute Neuts (auto) 4.0 (1.3-6.7) K/mm3 Absolute Nucleated RBC 0.000 (0.0-0.012) K/mm3 Nucleated RBC % 0.0 (0.0-0.2) % Sodium 138 (137-145) mmol/L Potassium 4.3 (3.4-5.0) mmol/L Chloride 101 (98-107) mmol/L Carbon Dioxide 27 (22-30) mmol/L Anion Gap 10 (4-12) mmol/L BUN 11 (7-17) mg/dL Creatinine 0.57 L (0.7-1.0) mg/dL Estim Creat Clear Calc 121 ml/min Estimated GFR > 60 (59 - ) Glucose 147 H (65-110) mg/dL Calcium 9.2 (8.4-10.2) mg/dL Total Bilirubin 0.5 (0.2-1.3) mg/dL AST 61 H (14-36) U/L ALT 53 H (6-35) U/L Alkaline Phosphatase 104 (38-126) U/L NT-Pro-B Natriuret Pep 67 (19.9-100) pg/mL Total Protein 7.3 (6.3-8.2) g/dL Albumin 4.0 (3.5-5.1) g/dL Imaging Data Radiologist's impression: ITS Impressions Chest X-Ray 02/04/25 11:00 IMPRESSION: 1: NO ACUTE CARDIOPULMONARY DISEASE. ECG Data EKG #1: ECG completion date: 02/04/25 ECG completion time: 13:54 EKG Interpretation: normal rate (74), sinus rhythm, non-specific ST changes, normal QRS and normal QT Discharge Plan Discharge Clinical Impression: Fatigue Patient Disposition: Home Condition: Stable Instructions: Low-Sodium Diet (ED) Additional Instructions: A physiologic source of edema such as heart failure was not found. It is recommended you follow-up with your primary care doctor. You should increase her physical activity and exercise and monitor your diet due to concern of weight gain and edema. Low-sodium diet would be ferreira. Patient Language: Ivorian Prescriptions: No Action atenolol 50 mg tablet 50 mg PO DAILY hydrochlorothiazide 25 mg tablet 25 mg PO DAILY citalopram 40 mg tablet 40 mg PO DAILY omeprazole 20 mg capsule,delayed release(DR/EC) 20 mg PO DAILY valacyclovir 500 mg tablet 500 mg PO DAILY albuterol sulfate 90 mcg/actuation HFA aerosol inhaler INHALATION montelukast 10 mg tablet 10 mg PO DAILY fenofibrate micronized 134 mg capsule 134 mg PO DAILY cholecalciferol (vitamin D3) 50 mcg (2,000 unit) capsule 50 mcg PO DAILY Follow-up/Referrals: Krishna Adamson MD [Physician] - 1 Week UNKNOWN,DOCTOR [Primary Care Provider] - 1 Week
[2025-02-04 13:31] VITALS: BP 161/92; PULSE 86; RESP 18; O2SAT 94
== END 2025-02-04 14:19 | disposition home or self-care (01) ==
PROVIDERS: Emergency Provider Emergency Medicine
DX: R53.83 Other fatigue (principal); I10 Essential (primary) hypertension; Z87.891 Personal history of nicotine dependence; Z90.49 Acquired absence of other specified parts of digestive tract; Z79.899 Other long term (current) drug therapy
CPT/HCPCS: 36415; 71046; 80053; 83880; 85025; 93005; 99284